=== PATIENT | female | born 1945 | race Caucasian/White ===

== ENCOUNTER 2017-03-10 23:40 | Inpatient (IN) | payer MEDICARE ==
[2017-03-11 00:08] LABS: Bilirubin Negative (Negative); Blood, Urine Small (Negative); Glucose, Urine (Dipstick) Negative (Negative); Ketone, Urine Negative (Negative); Nitrite Negative (Negative); Protein, Urine (Dipstick) Trace mg/dL (Neg-Trace); Urobilinogen 0.2 mg/dL (0.2-1.0)
[2017-03-11 00:11] LABS: Bacteria/HPF 3+ HPF (None Seen); Hyaline Casts/LPF 0-3 HYALINE CAST LPF (0-3 Hyaline); RBC/HPF 0-3 HPF (0-3); Squamous Epithelial 0-3 HPF (0-3)
[2017-03-11 00:23] LABS: Yeast-All Forms None Seen HPF (None Seen)
[2017-03-11 00:42] LABS: #Basophils 0.1 thou/uL (0.0-0.2); #Eosinphils 0.1 thou/uL (0.0-0.7); #Lymphocytes 2.6 thou/uL (1.20-3.40); #Monocytes 0.8 thou/uL (0.11-0.59); #Neutrophils 4.4 thou/uL (1.40-6.50); %Basophils 1.2 % (0.0-1.0); %Eosinophils 1.9 % (0.0-10.0); %Lymphocytes 32.5 % (21.0-51.0); %Monocytes 9.9 % (0.0-10.0); Hematocrit 40.4 % (36.0-47.0); Macrocytosis SLIGHT = 6-15 cells (100X) (0-5/hpf); Mean Platelet Volume 5.6 fL (7.4-10.4); Red Blood Cell (RBC) Count 3.83 mill/uL (4.20-5.40)
[2017-03-11 00:46] LABS: ALT (SGPT) 12 U/L (8-55); AST (SGOT) 29 U/L (5-34); Alkaline Phosphatase 167 U/L (40-150); Anion Gap 14 mmol/L (10-20); BUN (Urea Nitrogen) 11 mg/dL (9.8-20.1); Bilirubin, Total 1.3 mg/dL (0.2-1.2); Calc. Creatinine Clearance 0 mL/min (70-130); Calcium 9.5 mg/dL (7.8-10.44); Carbon Dioxide 31 mmol/L (23-31); Chloride 75 mmol/L (98-107); Estimated GFR-MDRD 44; Globulin 3.7 g/dL (2.4-3.5); Protein, Total 7.7 g/dL (6.0-8.3)
[2017-03-11 03:15] LABS: Salicylate Less than 8.0 mg/dL (15.0-30.0)
[2017-03-11 03:24] LABS: Osmolality, Serum 241 mOsm/kg (280-295)
[2017-03-11] MEDS ORDERED: Ketorolac Tromethamine 30 MG/ML VIAL ONE (04:05)
[2017-03-11] MEDS ORDERED: Multivitamins, Adult 10 ML, Thiamine HCl 100 MG, Folic Acid 1 MG in Dextrose 5 %-0.45 %... IV SCH ×4 (04:30)
[2017-03-11] MEDS ORDERED: Sodium Chloride 0.9% 1,000 ML IV SCH (06:28)
[2017-03-11] MEDS ORDERED: Ondansetron HCl/PF 4 MG/2 ML Vial IVP PRN ×2 (06:28→08:23)
[2017-03-11] MEDS ORDERED: Ondansetron ODT 4 MG TAB SL PRN (06:28)
[2017-03-11] MEDS ORDERED: Enalaprilat Dihydrate 1.25 MG/ML VIAL SLOW IVP PRN (08:21)
--- NOTE | 2017-03-11 08:23 | RAD ---
PORTABLE CHEST: Date: 03/11/17 PROVIDED CLINICAL HISTORY: Abdominal pain. FINDINGS: Comparison made with the study dated 07/24/16. Cardiac and mediastinal silhouette is unchanged in appearance. Emphysematous changes are redemonstrat ed. No focal consolidation, pleural fluid, or pneumothorax apparent. IMPRESSION: No evidence for an acute cardiopulmonary process. POS: OFF
[2017-03-11] MEDS ORDERED: Lorazepam 2 MG/ML VIAL SLOW IVP PRN (08:24)
--- NOTE | 2017-03-11 08:32 | CT ---
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 Pt states that pain was intermit tent at first but is now constant. States pain starts in upper abdomen and moves to lower abdomen. Al so reports dysuria since saturday. Pt was seen by pcp on saturday for physical and had cold then, has been taking otc medications for this but not on antibiotics. Pt states she is an alcoholic and usual ly drinks 4 beers and one wine/day. States that she gets shakes if she does not have alcohol. Reports drinking one beer today. Pt has h/o frequent utis, last uti was in july. Pt is former smoker, quit 8 years ago TECHNIQUE: Axial computed tomography images of the abdomen and pelvis with intravenous contrast. Coronal reformatted images were created and reviewed. COMPARISON: No relevant prior studies available. FINDINGS: Lower thorax: No acute findings. ABDOMEN: Liver: Liver surface nodularity suggest hepatic cirrhosis. Gallbladder and bile ducts: Unremarkable. No calcified stones. No ductal dilation. Pancreas: Unremarkable. No mass. No ductal dilation. Spleen: Unremarkable. No splenomegaly. Adrenals: Unremarkable. No mass. Kidneys and ureters: Chronic medical renal disease. No hydronephrosis. Stomach and bowel: The wall of the distal gastric antrum appears relatively thickened, without associ ated inflammation, potentially representing gastritis. No perceptible ulcer. No bowel wall thickening or intestinal obstruction. Appendix: Appendix not visualized. No evidence of appendicitis. PELVIS: Bladder: Mild diffuse inflammatory urinary bladder wall thickening, compatible with cystitis. Reproductive: Prior hysterectomy. ABDOMEN and PELVIS: Intraperitoneal space: Unremarkable. No free air. No significant fluid collection. Bones/joints: Internal fixation hardware of the proximal left femur. No acute fracture. No dislocatio n. Soft tissues: Unremarkable. Vasculature: Multiple peripherally calcified splenic artery aneurysms measuring up to 1.1 cm in size. Lymph nodes: Unremarkable. No enlarged lymph nodes. IMPRESSION: 1. Cystitis. 2. The wall of the distal gastric antrum appears relatively thickened, without associated inflammatio n, potentially representing gastritis. No perceptible ulcer. Thank you for allowing us to participate in the care of your patient. Dictated and Authenticated by: Jayme Hurst MD 03/11/2017 4:12 AM Central Time ([place] & [place]) FINAL REPORT CT ABDOMEN AND PELVIS WITH ORAL AND IV CONTRAST: Date: 03/11/17 FINDINGS/IMPRESSION: I agree with the preliminary report given by Dr. Jayme Hurst of [facility]. POS: [facility]
--- NOTE | 2017-03-11 08:49 | HP ---
CHIEF COMPLAINT: Abdominal pain with dysuria and bloating, hyponatremia and urinary tract infection. HISTORY OF PRESENT ILLNESS: The patient is a 72-year-old ongoing alcoholic who 2 days prior to admjairon fuller began to have pain with urination, frequency and urgency. This progressed to the point where merissa ellsworth finally came to the emergency room. She has had some nausea prior to this, but denies fever, vomit ing, diarrhea, pain and frequency that had increased to the point she was extremely uncomfortable. S he has continued to drink 4-6 beers plus wine every day. 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 PAST SURGICAL HISTORY: Includes appendectomy, hysterectomy, section x3, and left hip surger y. SOCIAL HISTORY: She is . She used to be an extensive smoker, but has quit less than 10 years ago. She continues to drink 4-6 beers per day and follows that with wine. ALLERGIES: No known drug allergies. CURRENT MEDICATIONS: On admission include gabapentin 300 mg t.i.d. with 2 at bedtime and occasionall y she will take Valium 2 mg. REVIEW OF SYSTEMS: GENERAL: She has not had any fever, malaise, diarrhea. She admits to nausea. HEENT: Normocephalic and atraumatic. Denies any headaches, blurred vision, pain in her throat, nose , ears. NECK: Normal range of motion, no sensation of mass or tenderness. CHEST: She denies cough or shortness of breath. HEART: Denies chest pain, palpitations or irregularity. ABDOMEN: Complains of tenderness suprapubically all the way up to her mid epigastric region. No gua rding. She feels bloated. GENITOURINARY: She has urinary frequency, urgency. Denies acute pain. Denies blood in urine or sto ol. EXTREMITIES: She denies any clubbing. She denies any painful range of motion or pain in joints at t his time, no swelling. SKIN: Shows no rashes or lesions. NEUROLOGIC: She denies any trouble with mentation or has trouble with headaches. She does admit to having had diminished sensation and occasionally burning sensation in her feet. PHYSICAL EXAMINATION: VITAL SIGNS: At the time of admission; blood pressure 183/107, respirations 16, pulse 87, temperatur e 97.8, O2 sat 95% on room air and she states her pain scale 07/10 in her abdomen. GENERAL: This is an elderly obese female, alert, oriented, cooperative at this time. HEENT: Normocephalic and atraumatic. Pupils are equal, round, and reactive to light with arcus destiney lis bilaterally. TMs, nares, pharynx are clear. NECK: Supple, trachea midline, no mass or tenderness. CHEST: Clear to auscultation. BREAST EXAM: Deferred. HEART: Regular rate and rhythm without murmur. ABDOMEN: Tender exclusively from suprapubic up to the mid epigastric area. Mild guarding noted. No rebound, no organomegaly appreciated, general tenderness noted. EXTREMITIES: Without clubbing, cyanosis, or edema. SKIN: Without rashes or lesions. NEUROLOGIC: Cranial nerves are intact. Unable to test gait and cerebellar function at this time. S ensory exam is intact. Mental status is at baseline. LABORATORY: Lab work on admission showed WBC 8, hemoglobin 13.6, hematocrit 40.4, platelets at 339. The sodium is 116, potassium 3.8, chloride 75, carbon dioxide is 31, BUN 11, creatinine 1.19, serum osmolality 241, total bilirubin 1.3. Liver functions normal. TSH 4.6. Urinalysis showed too cecilio us to count WBCs with large leukocyte esterase. Urine toxicology is negative at this time. ASSESSMENT: 1. Severe hyponatremia. 2. Urinary tract infection. 3. Alcoholism, ongoing. 4. Generalized anxiety disorder. PLAN: The plan will be supplementation of normal saline and control of blood pressure, prevention of DTs and antibiotics with serial reevaluation of pain.
[2017-03-11] MEDS ORDERED: NALOXONE PO SCH (09:00)
[2017-03-11] MEDS: Folic Acid 1 MG TAB PO SCH (09:36)
[2017-03-11] MEDS: Multivit, Therapeutic 1 TAB PO SCH (09:36)
[2017-03-11] MEDS: chlordiazePOXIDE HCl 25 MG CAP PO SCH ×4 (09:36→23:05)
[2017-03-11] MEDS: Phenazopyridine HCl 97.5 MG TABLET PO SCH ×3 (09:36→16:51)
[2017-03-11] MEDS: Sodium Chloride 0.9% 1,000 ML IV SCH (09:37)
[2017-03-11] MEDS: Gabapentin 300 MG CAP PO SCH ×4 (09:37→23:06)
[2017-03-11] MEDS: Thiamine HCl 200 MG/2 ML VIAL IM SCH (09:40)
[2017-03-11] MEDS: traMADol HCl 50 MG TAB PO PRN (12:50)
[2017-03-11] MEDS ORDERED: Iopamidol 370 76% 100 ML VIAL ONE (13:52)
[2017-03-11] MEDS ORDERED: cefTRIAXone\\ROCEPHIN 1 GM in Syringe 10 ML SLOW IVP SCH (16:00)
[2017-03-11] MEDS ORDERED: FLU VACC TS2017-18 (>65YR) 0.5 ML SYRINGE IM ONE (21:00)
[2017-03-12] MEDS: Sodium Chloride 0.9% 1,000 ML IV SCH ×2 (01:05→14:57)
[2017-03-12] MEDS: cefTRIAXone\\ROCEPHIN 1 GM, Syringe 0.4 ML in Sterile Water 9.6 ML SLOW IVP SCH (05:55)
[2017-03-12 06:20] LABS: #Eosinphils 0.5 thou/uL (0.0-0.7); #Lymphocytes 0.6 thou/uL (1.20-3.40); #Monocytes 0.4 thou/uL (0.11-0.59); #Neutrophils 5.7 thou/uL (1.40-6.50); %Basophils 0.5 % (0.0-1.0); %Eosinophils 6.4 % (0.0-10.0); %Lymphocytes 8.7 % (21.0-51.0); %Monocytes 4.9 % (0.0-10.0); Hematocrit 35.6 % (36.0-47.0); Mean Platelet Volume 5.4 fL (7.4-10.4); White Blood Cell (WBC) Count 7.2 thou/uL (4.8-10.8)
[2017-03-12 06:26] LABS: BUN (Urea Nitrogen) 11 mg/dL (9.8-20.1); Calc. Creatinine Clearance 72 mL/min (70-130); Calcium 8.6 mg/dL (7.8-10.44); Carbon Dioxide 31 mmol/L (23-31); Chloride 88 mmol/L (98-107); Estimated GFR-MDRD 65
[2017-03-12 07:20] LABS: Anion Gap 10 mmol/L (10-20)
[2017-03-12] MEDS: Folic Acid 1 MG TAB PO SCH (09:41)
[2017-03-12] MEDS: Phenazopyridine HCl 97.5 MG TABLET PO SCH ×3 (09:41→17:05)
[2017-03-12] MEDS: chlordiazePOXIDE HCl 25 MG CAP PO SCH ×4 (09:42→23:16)
[2017-03-12] MEDS: Gabapentin 300 MG CAP PO SCH ×4 (09:42→23:16)
[2017-03-12] MEDS: Multivit, Therapeutic 1 TAB PO SCH (09:43)
[2017-03-12] MEDS: Thiamine HCl 200 MG/2 ML VIAL IM SCH (09:47)
--- NOTE | 2017-03-12 12:17 | PRG ---
DATE OF SERVICE: 03/12/2017 ARGENTINA Gonzáles dictating a progress note for Orion Thompson M.D. SUBJECTIVE: The patient feels good. She is eating okay. She is drinking okay. She denies any comp laints. OBJECTIVE: GENERAL: Upon evaluation, she is awake, alert, and oriented to person, place, and time. VITAL SIGNS: Her blood pressure is 120/58, respiration 16, she is afebrile. NECK: Supple with no increased JVP or carotid bruit. Carotid had good upstroke with no thyromegaly. COR: Regular rate and rhythm. CHEST: Symmetrical. Clear to auscultation and percussion. ABDOMEN: Soft, nontender with normoactive bowel sounds. There is no bruit or organomegaly. EXTREMITIES: No edema or cyanosis. Palpable pedal pulses. SKIN: There is no evidence of ulcers, lesion, or rash. NEUROLOGIC: She is awake, alert, and oriented to person, place, and time. LABORATORY DATA: Showed a normal CBC. Her sodium is now 125. ASSESSMENT: 1. Hyponatremia. 2. Alcohol abuse. 3. Hypertension. 4. Peripheral neuropathy. 5. Urinary tract infection. 6. General anxiety disorder. PLAN: We will continue same treatment for now. We would like to get her sodium 130 at least before we look at sending home. Also, I do not have a urine C and S back yet as well. We will continue the same current medication regime. The patient verbalized understanding and all questions were answere d to her satisfaction.
[2017-03-12 13:35] VITALS: BMI 30.2
[2017-03-12] MEDS: traMADol HCl 50 MG TAB PO PRN (14:37)
[2017-03-13] MEDS: Sodium Chloride 0.9% 1,000 ML IV SCH (05:56)
[2017-03-13 05:57] LABS: #Eosinphils 0.5 thou/uL (0.0-0.7); #Lymphocytes 0.7 thou/uL (1.20-3.40); #Monocytes 0.6 thou/uL (0.11-0.59); #Neutrophils 7.2 thou/uL (1.40-6.50); %Basophils 0.4 % (0.0-1.0); %Lymphocytes 8.1 % (21.0-51.0); %Monocytes 6.1 % (0.0-10.0); Hematocrit 35.4 % (36.0-47.0); Mean Platelet Volume 5.9 fL (7.4-10.4); Red Blood Cell (RBC) Count 3.22 mill/uL (4.20-5.40); White Blood Cell (WBC) Count 9.1 thou/uL (4.8-10.8)
[2017-03-13] MEDS: cefTRIAXone\\ROCEPHIN 1 GM, Syringe 0.4 ML in Sterile Water 9.6 ML SLOW IVP SCH (05:58)
[2017-03-13 06:18] LABS: ALT (SGPT) 32 U/L (8-55); AST (SGOT) 97 U/L (5-34); Alkaline Phosphatase 217 U/L (40-150); Anion Gap 11 mmol/L (10-20); BUN (Urea Nitrogen) 7 mg/dL (9.8-20.1); Bilirubin, Total 0.4 mg/dL (0.2-1.2); Calc. Creatinine Clearance 84 mL/min (70-130); Carbon Dioxide 21 mmol/L (23-31); Chloride 98 mmol/L (98-107); Estimated GFR-MDRD 78; Globulin 2.9 g/dL (2.4-3.5); Protein, Total 5.8 g/dL (6.0-8.3)
[2017-03-13] MEDS: NS 0.9% w/ 20 MEQ KCL 1,000 ML IV SCH (08:18)
[2017-03-13] MEDS: Potassium Chloride 20 MEQ TAB PO SCH ×2 (08:19→17:06)
[2017-03-13] MEDS: Folic Acid 1 MG TAB PO SCH (08:22)
[2017-03-13] MEDS: Phenazopyridine HCl 97.5 MG TABLET PO SCH (08:22)
[2017-03-13] MEDS: chlordiazePOXIDE HCl 25 MG CAP PO SCH ×4 (08:22→22:07)
[2017-03-13] MEDS: Gabapentin 300 MG CAP PO SCH ×4 (08:23→22:07)
[2017-03-13] MEDS: Thiamine HCl 200 MG/2 ML VIAL IM SCH (08:24)
[2017-03-13] MEDS: Multivit, Therapeutic 1 TAB PO SCH (10:05)
[2017-03-13] MEDS: Cephalexin 250 MG CAP PO SCH ×5 (10:05→22:06)
[2017-03-14 06:24] LABS: #Eosinphils 0.4 thou/uL (0.0-0.7); #Lymphocytes 0.6 thou/uL (1.20-3.40); #Monocytes 0.6 thou/uL (0.11-0.59); #Neutrophils 4.2 thou/uL (1.40-6.50); %Basophils 0.3 % (0.0-1.0); %Eosinophils 7.3 % (0.0-10.0); %Lymphocytes 10.2 % (21.0-51.0); Hematocrit 36.2 % (36.0-47.0); Mean Platelet Volume 5.7 fL (7.4-10.4); White Blood Cell (WBC) Count 5.8 thou/uL (4.8-10.8)
[2017-03-14 06:49] LABS: Anion Gap 10 mmol/L (10-20); BUN (Urea Nitrogen) 5 mg/dL (9.8-20.1); Calc. Creatinine Clearance 107 mL/min (70-130); Calcium 8.2 mg/dL (7.8-10.44); Carbon Dioxide 21 mmol/L (23-31); Chloride 103 mmol/L (98-107); Estimated GFR-MDRD Greater than 90
[2017-03-14] MEDS: Multivit, Therapeutic 1 TAB PO SCH (08:15)
[2017-03-14] MEDS: Gabapentin 300 MG CAP PO SCH (08:15)
[2017-03-14] MEDS: Potassium Chloride 20 MEQ TAB PO SCH (08:15)
[2017-03-14] MEDS: Folic Acid 1 MG TAB PO SCH (08:16)
[2017-03-14] MEDS: chlordiazePOXIDE HCl 25 MG CAP PO SCH (08:17)
[2017-03-14] MEDS: NS 0.9% w/ 20 MEQ KCL 1,000 ML IV SCH (08:18)
[2017-03-14] MEDS: Cephalexin 250 MG CAP PO SCH (08:39)
[2017-03-14 08:41] VITALS: BP 153/74; TEMP 98.4
--- NOTE | 2017-03-14 13:59 | DIS ---
FINAL DIAGNOSES: 1. Urinary tract infection. 2. Alcohol abuse. 3. Hyponatremia. 4. Hypokalemia. COMPLICATIONS: None. PROCEDURES: None. CONSULTANTS: None. HOSPITAL COURSE: This is a pleasant female, who presents with abdominal pain and found to have a UTI . She was also found to have hyponatremia, hypokalemia, and she was started on IV fluids. Her potas sium was replenished. She was put on DT prophylaxis as she is a big drinker and has been so for many years. Urine culture preliminary came back negative; however, she was doing very well. She wanted to go home despite not having the final culture back. Her vital signs were stable. Her lab went fro m 116 of sodium to 130. Her BUN and creatinine were normal. Her H&H was 11.8 and 36.2. Her hospita l course was unremarkable and she was discharged home on 03/14/2017 in stable condition. DIET: Regular diet. ACTIVITIES: As tolerated by the patient. DISCHARGE MEDICATIONS: 1. Diazepam 2 mg b.i.d. p.r.n. 2. Gabapentin 300 mg t.i.d. with 600 at night. 3. Cephalexin 500 mg q.i.d. 4. Stop Librium as she did not want that, she also did not want folic acid. 5. She would continue the metoprolol 50 mg every day, along with a multivitamin every day. FOLLOWUP: She will follow up in 1 week with Mariajose. She was also advised to discontinue drinking. We had the conversation numerous times that she is a patient of mine in the office. She does good for several months and then unfortunately, she will always go back to her old ways. The patient will see me in 1 week or prior to that if she has any complications. This is Mariajose VILLARREAL-C dictating for Orion Thompson M.D.
== END 2017-03-14 12:22 | disposition home or self-care (01) | DRG 690 ==
LOC: ERS 23:40 → T4-B 03-11 05:00
PROVIDERS: ADMIT Specialist; ATTEND Specialist
DX: N39.0 Urinary tract infection, site not specified (principal); G62.9 Polyneuropathy, unspecified; E87.1 Hypo-osmolality and hyponatremia; K74.60 Unspecified cirrhosis of liver; J44.9 Chronic obstructive pulmonary disease, unspecified; I10 Essential (primary) hypertension; E87.6 Hypokalemia; F41.1 Generalized anxiety disorder; Z91.14 Patient's other noncompliance with medication regimen; F10.20 Alcohol dependence, uncomplicated; K21.9 Gastro-esophageal reflux disease without esophagitis; F32.9 Major depressive disorder, single episode, unspecified; Z87.891 Personal history of nicotine dependence
CPT/HCPCS: 36415; 36416; 71010; 74177; 80048; 80053; 80307; 81003; 81015; 82436; 82570; 83930; 83935; 84133; 84300; 84443; 84550; 84560; 85025; 87086; 93005; 96361; 96365; 96375; A4216; J0696; J1885; J3411; J7042

== ENCOUNTER 2017-03-17 19:57 | Emergency (ER) | payer MEDICARE ==
[2017-03-17 21:08] LABS: #Basophils 0.1 thou/uL (0.0-0.2); #Eosinphils 0.4 thou/uL (0.0-0.7); #Lymphocytes 2.6 thou/uL (1.20-3.40); #Monocytes 0.8 thou/uL (0.11-0.59); #Neutrophils 2.4 thou/uL (1.40-6.50); %Basophils 1.7 % (0.0-1.0); %Eosinophils 5.7 % (0.0-10.0); %Lymphocytes 41.3 % (21.0-51.0); %Monocytes 12.4 % (0.0-10.0); Mean Platelet Volume 5.4 fL (7.4-10.4); Red Blood Cell (RBC) Count 3.64 mill/uL (4.20-5.40); White Blood Cell (WBC) Count 6.2 thou/uL (4.8-10.8)
[2017-03-17 21:27] LABS: ALT (SGPT) 20 U/L (8-55); AST (SGOT) 23 U/L (5-34); Alkaline Phosphatase 170 U/L (40-150); Anion Gap 14 mmol/L (10-20); BUN (Urea Nitrogen) 5 mg/dL (9.8-20.1); Bilirubin, Total 0.5 mg/dL (0.2-1.2); Calc. Creatinine Clearance 0 mL/min (70-130); Calcium 9.2 mg/dL (7.8-10.44); Carbon Dioxide 25 mmol/L (23-31); Chloride 102 mmol/L (98-107); Estimated GFR-MDRD 86; Globulin 3.5 g/dL (2.4-3.5); Lipase 20 U/L (8-78); Protein, Total 7.1 g/dL (6.0-8.3)
[2017-03-17 21:31] LABS: Troponin I Less than 0.010 ng/mL (< 0.028)
[2017-03-17] MEDS ORDERED: Morphine 4 MG/ML VIAL ONE (22:02)
[2017-03-17] MEDS ORDERED: Ondansetron HCl/PF 4 MG/2 ML Vial ONE (22:02)
[2017-03-17 22:11] LABS: Bilirubin Negative (Negative); Blood, Urine Moderate (Negative); Glucose, Urine (Dipstick) Negative (Negative); Ketone, Urine Negative (Negative); Nitrite Negative (Negative); Protein, Urine (Dipstick) Negative (Neg-Trace); Urobilinogen 0.2 mg/dL (0.2-1.0)
[2017-03-17 22:16] LABS: Bacteria/HPF None Seen HPF (None Seen); Hyaline Casts/LPF 4-6 HYALINE CAST LPF (0-3 Hyaline); RBC/HPF 21-50 HPF (0-3); Squamous Epithelial 0-3 HPF (0-3)
--- NOTE | 2017-03-17 22:53 | CT ---
CT OF THE ABDOMEN AND PELVIS: Date: 03/17/17 COMPARISON: 03/11/17. HISTORY: Flank pain on the left, urinary retention, recent diagnosis of pyelonephritis. TECHNIQUE: Serial axial CT imaging is obtained at 5 mm intervals from lung bases through pubic symphysis without contrast. Coronal reformatted imaging obtained. FINDINGS: Lack of contrast media limits assessment of the viscera, bowel, vascular structures, and for lymphade nopathy. Minimal new focal area of ground-glass opacity noted in the left lower lobe on image 7, whic h could be inflammatory or infectious in nature. There is linear scar within the right lower lobe med ially. There is no free intraperitoneal air or fluid. There is a Rojas catheter within the urinary bladder. Postoperative screws are present within the left femoral neck. A punctate hyperdensity in the gallbla dder suggests a small stone. The peripheral contour of the liver is mildly irregular, a stable findin g. Splenic artery aneurysms are noted, measuring up to 1.3 cm in transverse dimension, demonstrating rim calcification, stable. The adrenal glands and pancreas are grossly unremarkable. There is no evidence for hydronephrosis or nephrolithiasis on either side. There is no evidence for o bstructive uropathy on either side. No evidence for bowel obstruction. Osseous structures demonstrate stable mild superior end plate fracture of T11 and diffuse osteopenia. IMPRESSION: No evidence for obstructive uropathy or nephrolithiasis. POS: [facility]
--- NOTE | 2017-04-06 11:38 | EKG ---
Test Reason : Blood Pressure : / mmHG Vent. Rate : 093 BPM Atrial Rate : 093 BPM P-R Int : 156 ms QRS Dur : 068 ms QT Int : 360 ms P-R-T Axes : 025 068 032 degrees QTc Int : 447 ms Normal sinus rhythm Low voltage QRS Nonspecific ST and T wave abnormality No STEMI Abnormal ECG Confirmed by MISTY Uribe, SHEILA ([id number]), avid editor PADMINI CORDON ([id number]) on 04/06/2017 11:38:28 AM Referred By: Confirmed By:SHEILA JAY M.D.
== END 2017-03-18 01:10 | disposition home or self-care (01) ==
LOC: ERS 19:57
DX: J18.9 Pneumonia, unspecified organism (principal); R33.9 Retention of urine, unspecified; K74.60 Unspecified cirrhosis of liver; J44.9 Chronic obstructive pulmonary disease, unspecified; F41.9 Anxiety disorder, unspecified; F32.9 Major depressive disorder, single episode, unspecified; Y95 Nosocomial condition; Z79.899 Other long term (current) drug therapy
CPT/HCPCS: 36415; 74176; 80053; 81003; 81015; 82553; 83690; 84484; 85025; 87086; 93005; 96374; 96375; J2270; J2405

== ENCOUNTER 2017-07-15 07:36 | Inpatient (IN) | payer MEDICARE ==
[2017-07-15 08:09] LABS: #Basophils 0.1 thou/uL (0.0-0.2); #Eosinphils 0.1 thou/uL (0.0-0.7); #Lymphocytes 3.3 thou/uL (1.20-3.40); #Monocytes 1.2 thou/uL (0.11-0.59); #Neutrophils 5.5 thou/uL (1.40-6.50); %Basophils 0.9 % (0.0-1.0); %Eosinophils 1.2 % (0.0-10.0); %Lymphocytes 32.4 % (21.0-51.0); %Monocytes 11.6 % (0.0-10.0); %Neutrophils 53.9 % (42.0-75.0); Hemoglobin 15.7 g/dL (12.0-16.0); Mean Corpuscular HGB CONC 34.4 g/dL (32.0-36.0); Mean Corpuscular Hemoglobin 33.9 pg (27.0-31.0); Mean Corpuscular Volume 98.5 fl (81.0-99.0); Mean Platelet Volume 5.4 fL (7.4-10.4); Platelet Count 405 thou/uL (130-400); RBC Distribution Width 12.7 % (11.5-14.5); Red Blood Cell (RBC) Count 4.64 mill/uL (4.20-5.40); White Blood Cell (WBC) Count 10.2 thou/uL (4.8-10.8)
[2017-07-15 08:23] LABS: ALT (SGPT) 16 U/L (8-55); AST (SGOT) 46 U/L (5-34); Albumin 4.3 g/dL (3.4-4.8); Alkaline Phosphatase 176 U/L (40-150); Anion Gap 19 mmol/L (10-20); BUN (Urea Nitrogen) 6 mg/dL (9.8-20.1); Bilirubin, Total 0.9 mg/dL (0.2-1.2); Calc. Creatinine Clearance 0 mL/min (70-130); Calcium 10.5 mg/dL (7.8-10.44); Carbon Dioxide 27 mmol/L (23-31); Chloride 87 mmol/L (98-107); Estimated GFR-MDRD 54; Globulin 4.2 g/dL (2.4-3.5); Glucose 112 mg/dL (80-115); Lipase 15 U/L (8-78); Potassium 3.5 mmol/L (3.5-5.1); Protein, Total 8.5 g/dL (6.0-8.3); Sodium 129 mmol/L (136-145)
[2017-07-15] MEDS ORDERED: Sucralfate 1 GM/10 ML UDCUP ONE (09:06)
[2017-07-15] MEDS ORDERED: Ondansetron HCl/PF 4 MG/2 ML Vial ONE (09:06)
[2017-07-15] MEDS ORDERED: Lorazepam 2 MG/ML VIAL ONE (09:06)
[2017-07-15 09:19] LABS: Prothrombin Time 13.7 SEC (12.0-14.7)
[2017-07-15 09:26] LABS: CKMB 0.7 ng/mL (0-6.6); Troponin I Less than 0.010 ng/mL (< 0.028)
[2017-07-15 09:35] LABS: Bilirubin Small (Negative); Blood, Urine Moderate (Negative); Glucose, Urine (Dipstick) Negative (Negative); Leukocyte Moderate (Negative); Nitrite Negative (Negative); Protein, Urine (Dipstick) 100 mg/dL (Neg-Trace); Urobilinogen 0.2 mg/dL (0.2-1.0); pH, Urine 5.5 (5.0-9.0)
[2017-07-15 09:37] LABS: Clarity Turbid (Clear)
[2017-07-15 09:48] LABS: Bacteria/HPF 4+ HPF (None Seen); Squamous Epithelial 0-3 HPF (0-3)
[2017-07-15 09:49] LABS: Hyaline Casts/LPF NONE SEEN LPF (0-3 Hyaline)
[2017-07-15] MEDS ORDERED: cefTRIAXone\\ROCEPHIN 2 GM VIAL ONE (10:07)
[2017-07-15] MEDS ORDERED: Magnesium Sulfate 2 GM/100 ML BAG ONE (10:07)
--- NOTE | 2017-07-15 10:36 | ULT ---
ULTRASOUND ABDOMEN LIMITED: (RIGHT UPPER QUADRANT) DATE: 07/15/17. HISTORY: A 72-year-old female with right upper quadrant abdominal pain. FINDINGS: Gallbladder: At least 2 small mobile gallstones adjacent to each other at the fundus, each one on the order of 5 mm. No mural thickening, pericholecystic edema, or sonographic Damian's sign. Common duct: 3 mm. Liver: Diffusely coarse and heterogeneous echotexture consistent with cirrhosis. The particular appe arance on this patient makes it difficult to exclude innumerable small hepatic metastases. Hepatic m argins are nodular, consistent with cirrhosis. Left lobe is enlarged, and right lobe is small, also consistent with cirrhosis. Pancreas: Nonspecific sonographic appearance. Right kidney: No hydronephrosis. IMPRESSION: 1. Hepatic cirrhosis. 2. Cholelithiasis without evidence of acute cholecystitis or obstructive uropathy. GONZALO Brown POS: [facility]
[2017-07-15] MEDS ORDERED: FOLIC ACID IVP SCH (11:15)
[2017-07-15] MEDS ORDERED: PRE FILLED SLOW IVP SCH (11:15)
[2017-07-15] MEDS ORDERED: THIAMINE HCL SLOW IVP SCH (11:15)
[2017-07-15] MEDS ORDERED: PRE FILLED IVP SCH (11:15)
[2017-07-15] MEDS ORDERED: Thiamine HCl 200 MG/2 ML VIAL SLOW IVP ONE (11:15)
[2017-07-15] MEDS ORDERED: Sodium Chloride 0.9% 0 ML ONE (11:31)
[2017-07-15 12:33] VITALS: BMI 31.2
[2017-07-15] MEDS ORDERED: Ondansetron HCl/PF 4 MG/2 ML Vial IVP PRN (12:46)
[2017-07-15] MEDS ORDERED: Acetaminophen 325 MG TAB PO PRN (12:47)
[2017-07-15] MEDS ORDERED: Multivit, Therapeutic 1 TAB PO SCH (13:00)
[2017-07-15 13:14] LABS: Lactic Acid 1.4 mmol/L (0.5-2.2)
[2017-07-15 13:20] LABS: Troponin I 0.014 ng/mL (< 0.028)
[2017-07-15] MEDS: Diazepam 5 MG TAB PO SCH ×3 (13:36→20:39)
[2017-07-15] MEDS: Ondansetron ODT 4 MG TAB PO PRN ×2 (13:36→20:39)
[2017-07-15 15:51] LABS: Troponin I Less than 0.010 ng/mL (< 0.028)
[2017-07-15] MEDS ORDERED: Ondansetron ODT 8 MG TAB PO PRN (18:23)
[2017-07-15] MEDS ORDERED: Lorazepam 2 MG/ML VIAL SLOW IVP PRN (18:24)
[2017-07-15] MEDS ORDERED: Phenazopyridine HCl 97.5 MG TABLET PO SCH (18:30)
[2017-07-15] MEDS: Gabapentin 400 MG CAP PO SCH (20:38)
[2017-07-15] MEDS ORDERED: cefTRIAXone\\ROCEPHIN 2 GM in Sodium Chloride 0.9% 100 ML IVPB SCH (22:00)
--- NOTE | 2017-07-16 00:40 | HP ---
DATE OF ADMISSION: 07/15/2017 CHIEF COMPLAINT ON ADMISSION: Abdominal pain. HISTORY OF PRESENT ILLNESS: The patient is a 72-year-old female who states that she has be en having significant abdominal pain for 3 days. On the morning of admission, she began to have kia re dysuria and urinary frequency. Her abdominal pain has been coming in waves across her abdomen. S he has had a lot of nausea, a lot of diarrhea, and did vomit some on the days prior to admission. Sh e denies fever. She has had three C-sections in the past. She has had an appendectomy in the past. While she is not a smoker, she admits to heavy alcohol use and drinks daily. The onset of symptoms was gradual, but continued to worsen to the point where she could not stand the pain any further and came to the emergency room for further evaluation. PAST MEDICAL HISTORY: As mentioned above, she has a history of alcoholism with cirrhosis. Also COPD , fibromyalgia, generalized anxiety disorder. She has GERD, arthritis in her hips, depression, perip heral neuropathy, hypertension, noncompliance with all her medication and frequent urinary tract infe ctions. Her last hospitalization was 03/11/2017 for these very same complaints as today. PAST SURGICAL HISTORY: Includes appendectomy, hysterectomy, section x3, and left hip surger y. SOCIAL HISTORY: She is . She has been an extensive smoker and has quit less than 10 years ag o. She drinks 4-6 beers and several mixed drinks on a daily basis and follows that with wine. ALLERGIES: No known drug allergies. CURRENT MEDICATIONS ON ADMISSION: Gabapentin 300 mg t.i.d. with 2 at bedtime. She will occasionally take Valium 2 mg for anxiety. REVIEW OF SYSTEMS: General: As previously mentioned, she denies fever, malaise, but she has had ayo rrhea and nausea. HEENT: She has had headaches. Denies blurred vision, pain in her eyes, throat or ears or nose. No discharge from these as well. Neck: Nontender. Denies masses or swelling. Ches t: Denies cough or shortness of breath. Heart: Denies chest pain or palpitations. Back: Denies t enderness. Range of motion is normal. Abdomen: Admits to suprapubic tenderness and periumbilical t enderness that comes across in waves. She feels bloated all the time, has had nausea and diarrhea an d vomiting on the day prior to admission. Genitourinary: Admits to urinary frequency that she state s began at 2 in the morning on the day of admission. Denies blood in urine or stool. Extremities: Denies pain in her arms or legs. Denies swelling in her joints or erythema. Skin: Denies any new r ashes or lesions. Neurological: Denies any trouble with mentation, although she has had some headac hes. PHYSICAL EXAMINATION: At the time of admission, VITAL SIGNS: Blood pressure is 140/84, pulse 108, temperature 97.9 with an O2 sat of 94% on room air , she is breathing 16 times a minute, she weighs 171 pounds, and believe she is 4 feet 11 inches. GENERAL: Elderly female, alert and responsive to questions, in no acute distress. HEENT: Normocephalic, atraumatic. Pupils equal, round, and reactive to light with arcus senilis luis a aterally. TMs, nares, pharynx are clear. Pharynx on admission was dry. It is now moist. NECK: Supple with normal range of motion. No mass. CHEST: Shows generally diminished breath sounds throughout. HEART: Regular rate and rhythm, no murmur. BREAST EXAM: Deferred. ABDOMEN: Soft with mild hepatomegaly, tenderness across the midabdomen and periumbilical and suprapu bic area, but no guarding or rebound. Abdomen is soft. GENITOURINARY: Deferred. EXTREMITIES: Without clubbing, cyanosis, or edema. Normal range of motion present. SKIN: With poor turgor. No acute rashes or lesions. NEUROLOGIC: Cranial nerves are intact. Gait and cerebellar function are untested. Sensory exam is grossly intact. Deep tendon reflexes at the knee are 2+. Mental status is significant for anxiety. SKIN: No new rashes or lesions with poor turgor. LABORATORY ON ADMISSION: WBCs 10.2, hemoglobin 15.7, hematocrit 45.7 with platelets at 405. PT 13.7 , INR 1.0. Sodium is low at 129, potassium 3.5, chloride 87, CO2 of 27, BUN is 6, creatinine 1.02 wi th a GFR of 54, glucose 112 on admission. Lactate elevated at 2.4 on admission, calcium elevated at 10.5 on admission, magnesium low at 1.4 on admission. AST elevated at 46, ALT 16, alkaline phosphata se elevated at 176. Troponin Is and CK-MBs are negative. Liver functions, serum protein is high at 8.5. Lipase 15. Urinalysis shows moderate blood, trace ketones, moderate leukocyte esterase with to o numerous to count wbc's. Abdominal ultrasound on admission shows hepatic cirrhosis, cholelithiasis without evidence of cholecystitis. ASSESSMENT ON ADMISSION: 1. Dehydration. 2. Urinary tract infection. 3. Hyponatremia. 4. Hypomagnesemia. 5. Chronic obstructive pulmonary disease. 6. Acute alcoholism with possible early signs of withdrawal, so she has not drank in 3 days. PLAN: Will be to prevent delirium tremens, rehydrate this patient, antiemetics, antibiotics. Await urinary cultures and serial reevaluation. We will also use antispasmodics for the bladder to ease ab dominal pain. She will be serially reevaluated.
[2017-07-16 06:19] LABS: #Eosinphils 0.4 thou/uL (0.0-0.7); #Lymphocytes 0.6 thou/uL (1.20-3.40); #Monocytes 0.4 thou/uL (0.11-0.59); #Neutrophils 11.6 thou/uL (1.40-6.50); %Basophils 0.3 % (0.0-1.0); %Eosinophils 3.1 % (0.0-10.0); %Lymphocytes 4.3 % (21.0-51.0); %Monocytes 2.7 % (0.0-10.0); %Neutrophils 89.6 % (42.0-75.0); Hemoglobin 13.2 g/dL (12.0-16.0); Mean Corpuscular HGB CONC 33.4 g/dL (32.0-36.0); Mean Corpuscular Hemoglobin 33.5 pg (27.0-31.0); Mean Platelet Volume 5.6 fL (7.4-10.4); Platelet Count 266 thou/uL (130-400); RBC Distribution Width 12.6 % (11.5-14.5); Red Blood Cell (RBC) Count 3.92 mill/uL (4.20-5.40); White Blood Cell (WBC) Count 12.9 thou/uL (4.8-10.8)
[2017-07-16 06:28] LABS: Anion Gap 9 mmol/L (10-20); BUN (Urea Nitrogen) 7 mg/dL (9.8-20.1); Calc. Creatinine Clearance 83 mL/min (70-130); Calcium 8.6 mg/dL (7.8-10.44); Carbon Dioxide 30 mmol/L (23-31); Chloride 96 mmol/L (98-107); Estimated GFR-MDRD 74; Glucose 104 mg/dL (80-115); Magnesium 1.8 mg/dL (1.6-2.6); Potassium 3.1 mmol/L (3.5-5.1); Sodium 132 mmol/L (136-145)
--- NOTE | 2017-07-16 08:50 | PRG ---
DATE OF SERVICE: 07/16/2017 SUBJECTIVE: The patient had a good night. She is eating and drinking okay. She has no abdominal pa in. She has no nausea. PHYSICAL EXAMINATION: GENERAL: She is awake, alert, and oriented to person, place and time. VITAL SIGNS: Blood pressure 130/80, pulse 100, respiration 20, she is afebrile. NECK: Supple, no increased JVP or carotid bruit. Carotid had good upstroke with no thyromegaly. COR: Regular rate and rhythm. CHEST: Symmetrical. Clear to auscultation and percussion. ABDOMEN: Soft, nontender with normoactive bowel sounds. There is no bruit or organomegaly. EXTREMITIES: No edema or cyanosis. She had palpable pedal pulses. SKIN: There is no evidence of ulcer, lesion or rash. NEUROLOGIC: She is awake, alert, and oriented to person, place, and time. LABORATORY DATA: Her white blood cell 12.9, H&H is normal. Her sodium is 132. Her potassium is 3.1 . ASSESSMENT: 1. Urinary tract infection. 2. Hyponatremia. 3. Hypokalemia. 4. History of alcohol abuse. 5. Anxiety disorder. PLAN: The patient will be continued on the same medication regimen. We will wait for her urine cult ure. We will also replenish her potassium and check a potassium in the morning.
[2017-07-16] MEDS ORDERED: cefTRIAXone\\ROCEPHIN 2 GM in Sodium Chloride 0.9% 100 ML IVPB SCH ×2 (09:00→15:00)
[2017-07-16] MEDS: Diazepam 5 MG TAB PO SCH ×4 (09:27→21:26)
[2017-07-16] MEDS: Gabapentin 400 MG CAP PO SCH ×3 (09:27→21:26)
[2017-07-16] MEDS: Folic Acid 1 MG TAB PO SCH (09:27)
[2017-07-16] MEDS: Multivit, Therapeutic 1 TAB PO SCH (09:27)
[2017-07-16] MEDS: Potassium Chloride 20 MEQ TAB PO SCH ×2 (10:43→21:26)
[2017-07-16] MEDS: Phenazopyridine HCl 97.5 MG TABLET PO SCH ×4 (10:43→21:30)
[2017-07-16] MEDS: Thiamine HCl 200 MG/2 ML VIAL IM SCH (10:44)
[2017-07-16] MEDS ORDERED: Loperamide HCl 2 MG CAP PO PRN (13:27)
[2017-07-16] MEDS: Loperamide HCl 2 MG CAP PO PRN (16:23)
[2017-07-17 05:41] LABS: #Eosinphils 0.9 thou/uL (0.0-0.7); #Lymphocytes 0.8 thou/uL (1.20-3.40); #Monocytes 0.4 thou/uL (0.11-0.59); #Neutrophils 7.1 thou/uL (1.40-6.50); %Basophils 0.3 % (0.0-1.0); %Lymphocytes 8.9 % (21.0-51.0); %Monocytes 4.5 % (0.0-10.0); %Neutrophils 76.3 % (42.0-75.0); Hemoglobin 13.3 g/dL (12.0-16.0); Mean Corpuscular HGB CONC 33.7 g/dL (32.0-36.0); Mean Corpuscular Hemoglobin 34.3 pg (27.0-31.0); Mean Platelet Volume 5.8 fL (7.4-10.4); Platelet Count 263 thou/uL (130-400); RBC Distribution Width 12.7 % (11.5-14.5); Red Blood Cell (RBC) Count 3.88 mill/uL (4.20-5.40); White Blood Cell (WBC) Count 9.3 thou/uL (4.8-10.8)
[2017-07-17 06:16] LABS: ALT (SGPT) 10 U/L (8-55); AST (SGOT) 22 U/L (5-34); Albumin 3.1 g/dL (3.4-4.8); Alkaline Phosphatase 120 U/L (40-150); Anion Gap 9 mmol/L (10-20); BUN (Urea Nitrogen) 9 mg/dL (9.8-20.1); Bilirubin, Total 0.4 mg/dL (0.2-1.2); Calc. Creatinine Clearance 87 mL/min (70-130); Calcium 8.7 mg/dL (7.8-10.44); Carbon Dioxide 28 mmol/L (23-31); Chloride 98 mmol/L (98-107); Estimated GFR-MDRD 78; Globulin 2.8 g/dL (2.4-3.5); Glucose 104 mg/dL (80-115); Potassium 3.6 mmol/L (3.5-5.1); Protein, Total 5.9 g/dL (6.0-8.3); Sodium 131 mmol/L (136-145)
[2017-07-17] MEDS: Diazepam 5 MG TAB PO SCH ×4 (08:41→20:31)
[2017-07-17] MEDS: Folic Acid 1 MG TAB PO SCH (08:41)
[2017-07-17] MEDS: Multivit, Therapeutic 1 TAB PO SCH (08:42)
[2017-07-17] MEDS: Gabapentin 400 MG CAP PO SCH ×3 (08:42→20:31)
[2017-07-17] MEDS: Phenazopyridine HCl 97.5 MG TABLET PO SCH ×4 (08:43→20:31)
[2017-07-17] MEDS: Potassium Chloride 20 MEQ TAB PO SCH ×2 (08:43→20:31)
[2017-07-17] MEDS: Sulfameth/Trimethoprim DS 800-160mg TAB PO SCH ×2 (08:44→20:31)
[2017-07-17] MEDS: Loperamide HCl 2 MG CAP PO PRN (12:47)
[2017-07-17] MEDS: Thiamine HCl 200 MG/2 ML VIAL IM SCH (13:00)
[2017-07-17] MEDS ORDERED: THIAMINE HCL IM SCH (14:00)
[2017-07-17] MEDS ORDERED: ADMIXTURE FEE IM SCH (14:00)
[2017-07-18 07:53] LABS: #Eosinphils 0.8 thou/uL (0.0-0.7); #Monocytes 0.4 thou/uL (0.11-0.59); #Neutrophils 4.2 thou/uL (1.40-6.50); %Basophils 0.3 % (0.0-1.0); %Eosinophils 12.4 % (0.0-10.0); %Lymphocytes 15.4 % (21.0-51.0); Hemoglobin 13.3 g/dL (12.0-16.0); Mean Corpuscular HGB CONC 33.6 g/dL (32.0-36.0); Mean Corpuscular Hemoglobin 34.6 pg (27.0-31.0); Mean Platelet Volume 5.9 fL (7.4-10.4); Platelet Count 255 thou/uL (130-400); RBC Distribution Width 12.8 % (11.5-14.5); Red Blood Cell (RBC) Count 3.83 mill/uL (4.20-5.40); White Blood Cell (WBC) Count 6.3 thou/uL (4.8-10.8)
[2017-07-18 07:54] LABS: Anion Gap 9 mmol/L (10-20); BUN (Urea Nitrogen) 9 mg/dL (9.8-20.1); Calc. Creatinine Clearance 88 mL/min (70-130); Carbon Dioxide 28 mmol/L (23-31); Chloride 99 mmol/L (98-107); Estimated GFR-MDRD 79; Glucose 89 mg/dL (80-115); Potassium 4.4 mmol/L (3.5-5.1); Sodium 132 mmol/L (136-145)
[2017-07-18 08:01] VITALS: BP 148/79; TEMP 98.4
--- NOTE | 2017-07-18 12:50 | DIS ---
DATE OF ADMISSION: 07/15/2017 DATE OF DISCHARGE: 07/18/2017 FINAL DIAGNOSES: 1. Urinary tract infection. 2. Hyponatremia. 3. Hypokalemia. 4. History of alcohol abuse. COMPLICATIONS: None. PROCEDURES: None. CONSULTANTS: None. HOSPITAL COURSE: This is a pleasant female who presents to the hospital and found to have hyponatrem ia and UTI and also a low potassium, this was treated accordingly. Her white blood cell count was 12 .9. On the second day, her H and H was normal. On the day of dismissal, her white blood cell count was 6.3. Her H and H was normal. Her sodium was 132. Her vital signs were stable. She did have ur ine culture and was found to have E. coli. The patient was continued on IV antibiotics, were eventua lly switched to p.o. antibiotics, which was Bactrim as it was sensitive to her organism. The patient had to be placed on alcohol withdrawal per medications as she does have a history of alcohol abuse. The patient likely did not have any DTs while in the hospital. The patient's hospital course was un remarkable. She felt good. She was ambulatory. She was eating okay. She had no problems. She was discharged home on 07/18/2017 in stable condition. DISCHARGE MEDICATIONS: 1. Diazepam 2 mg b.i.d. 2. Neurontin 600 mg daily. 3. Naproxen p.r.n. 4. Folic acid 1 mg every day. 5. Multivitamin every day. 6. Bactrim-DS b.i.d. for 10 days. FOLLOWUP: She will otherwise follow up with Mariajose in 1 week or prior to that if she has any compl ications. The time spent with this patient after reviewing the chart, dictating and seen the patient was 30 min utes.
== END 2017-07-18 09:17 | disposition home or self-care (01) | DRG 690 ==
LOC: ERS 07:36 → 2SE 10:22
PROVIDERS: ADMIT Specialist; ATTEND Specialist
DX: N39.0 Urinary tract infection, site not specified (principal); E83.42 Hypomagnesemia; J44.9 Chronic obstructive pulmonary disease, unspecified; G62.9 Polyneuropathy, unspecified; E87.1 Hypo-osmolality and hyponatremia; E87.6 Hypokalemia; E86.0 Dehydration; B96.20 Unspecified Escherichia coli [E. coli] as the cause of diseases classified elsewhere; K70.30 Alcoholic cirrhosis of liver without ascites; F10.20 Alcohol dependence, uncomplicated; F41.1 Generalized anxiety disorder; I10 Essential (primary) hypertension; M79.7 Fibromyalgia; K21.9 Gastro-esophageal reflux disease without esophagitis; F32.9 Major depressive disorder, single episode, unspecified; Z91.14 Patient's other noncompliance with medication regimen; Z87.891 Personal history of nicotine dependence
CPT/HCPCS: 36415; 51701; 76705; 80048; 80053; 81003; 81015; 82553; 83605; 83690; 83735; 84484; 85025; 85610; 87077; 87086; 87186; 87324; 87449; 93005; 96360; 96361; 96365; 96367; 96375; A4216; A4353; J0696; J2060; J2405; J3411; J3475; J7050; Q0162

== ENCOUNTER 2017-10-14 16:33 | Inpatient (IN) | payer MEDICARE ==
[~2017-10-14 16:33] MED LIST: Iopamidol 370 76% 100 ML VIAL ONE
[2017-10-14] MEDS ORDERED: Morphine 4 MG/ML Carpuject ONE (16:53)
[2017-10-14] MEDS ORDERED: Ondansetron HCl/PF 4 MG/2 ML Vial ONE (16:54)
[2017-10-14 17:23] LABS: #Basophils 0.1 thou/uL (0.0-0.2); #Eosinphils 0.4 thou/uL (0.0-0.7); #Lymphocytes 1.9 thou/uL (1.20-3.40); #Monocytes 1.1 thou/uL (0.11-0.59); #Neutrophils 8.6 thou/uL (1.40-6.50); %Basophils 0.6 % (0.0-1.0); %Eosinophils 3.1 % (0.0-10.0); %Lymphocytes 15.5 % (21.0-51.0); %Monocytes 8.9 % (0.0-10.0); %Neutrophils 71.8 % (42.0-75.0); Hemoglobin 11.1 g/dL (12.0-16.0); Mean Corpuscular HGB CONC 33.6 g/dL (32.0-36.0); Mean Corpuscular Hemoglobin 33.8 pg (27.0-31.0); Mean Platelet Volume 5.1 fL (7.4-10.4); Platelet Count 332 thou/uL (130-400); RBC Distribution Width 13.1 % (11.5-14.5); Red Blood Cell (RBC) Count 3.28 mill/uL (4.20-5.40)
[2017-10-14 17:40] LABS: ALT (SGPT) 8 U/L (8-55); AST (SGOT) 15 U/L (5-34); Albumin 3.7 g/dL (3.4-4.8); Alkaline Phosphatase 92 U/L (40-150); Anion Gap 15 mmol/L (10-20); BUN (Urea Nitrogen) 19 mg/dL (9.8-20.1); Bilirubin, Total 0.2 mg/dL (0.2-1.2); Calc. Creatinine Clearance 0 mL/min (70-130); Calcium 9.9 mg/dL (7.8-10.44); Carbon Dioxide 27 mmol/L (23-31); Chloride 98 mmol/L (98-107); Estimated GFR-MDRD 68; Globulin 3.7 g/dL (2.4-3.5); Glucose 103 mg/dL (80-115); Lipase 26 U/L (8-78); Potassium 4.4 mmol/L (3.5-5.1); Protein, Total 7.4 g/dL (6.0-8.3); Sodium 136 mmol/L (136-145)
[2017-10-14] MEDS ORDERED: Pantoprazole 40 MG VIAL ONE (18:03)
--- NOTE | 2017-10-14 19:01 | CT ---
CT ABDOMEN AND PELVIS: Date: 10-14-17 Comparison: 03-11-17 History: Left sided abdominal pain. Technique: Serial axial CT imaging is obtained at 5 mm intervals from lung bases through pubic symphy sis with intravenous contrast. Coronal reformatted imaging obtained. FINDINGS: There is an incompletely evaluated area of coarse abnormal linear and nodular density within the post erior aspect of the right lower lobe with a small area of cavitation extending to involve the inferio r and posterior aspect of the right lower lobe. The more nodular linear component seen superiorly was not fully evaluated on prior imaging. The inferior component appears stable. A chronic area of scar or area of prior insult involving the right lower lobe is suspected. A follow up nonemergent dedicate d contrast enhanced CT examination of the chest is advised for full characterization. No free intraperitoneal air or fluid is seen. The uterus appears surgically absent. The peripheral co ntour of the liver is irregular/nodular, suggesting hepatic cirrhosis, a stable finding. There is mil d nonspecific wall thickening versus under distention of the gastric antrum. This is best seen on axi al images 36 through 40. Gallbladder, spleen, pancreas, adrenal glands, and kidneys demonstrate no acute findings. There is hy poplasia involving both kidneys, a stable finding. Stable aneurysm of the splenic artery on image 27 noted, measuring in the 1.2 cm range. No evidence for bowel inflammatory change or obstruction noted. The vascular structures of the abdomen and pelvis appear patent. No lymphadenopathy is noted. Review of the osseous structures demonstrates post-operative screws traversing the left femoral neck. There is multilevel degenerative change within the lumbar spine. This is most prominent in the regio n of the lower lumbar spine facet joints bilaterally. IMPRESSION: 1. Focal area of gastric antral wall thickening versus under distention. Inflammatory thickening in t he proper clinical setting cannot be excluded. Clinical correlation is essential. Recommend direct vi sualization on a nonemergent basis for full assessment. Neoplasia in the proper clinical setting jose a ot be excluded. 2. Findings suggesting hepatic cirrhosis. 3. Linear and nodular density in right lower lobe with associate cavitary change, likely chronic in n ature. Recommend a full evaluation via follow up contrast enhanced chest CT. Code T POS: [facility]
[2017-10-14 19:09] LABS: Bilirubin Negative (Negative); Blood, Urine Trace (Negative); Clarity Slightly Cloudy (Clear); Glucose, Urine (Dipstick) Negative (Negative); Leukocyte Trace (Negative); Nitrite Positive (Negative); Protein, Urine (Dipstick) Negative (Neg-Trace); Urobilinogen 0.2 mg/dL (0.2-1.0); pH, Urine 7.5 (5.0-9.0)
[2017-10-14 19:11] LABS: Bacteria/HPF 1+ HPF (None Seen); Crystals/HPF 1+ AMORPH PHOS HPF (Negative); RBC/HPF 0-3 HPF (0-3); Squamous Epithelial 0-3 HPF (0-3)
[2017-10-14] MEDS ORDERED: Ondansetron HCl/PF 4 MG/2 ML Vial IVP PRN (20:01)
[2017-10-14] MEDS ORDERED: Ondansetron ODT 4 MG TAB SL PRN (20:01)
[2017-10-14] MEDS: Sodium Chloride 0.9% 1,000 ML IV SCH (21:00)
[2017-10-14 21:02] VITALS: BMI 30.9
[2017-10-14] MEDS ORDERED: Thiamine HCl 200 MG/2 ML VIAL IM SCH (22:15)
[2017-10-14] MEDS ORDERED: Diazepam 5 MG TAB PO SCH (22:15)
[2017-10-14] MEDS ORDERED: Lorazepam 2 MG/ML VIAL SLOW IVP PRN (22:16)
[2017-10-14] MEDS ORDERED: Ketorolac Tromethamine 30 MG/ML VIAL IM/IV PRN (22:18)
[2017-10-14] MEDS ORDERED: CIPRO 500 MG PO SCH (23:00)
[2017-10-15] MEDS: Sodium Chloride 0.9% 1,000 ML IV SCH (04:56)
--- NOTE | 2017-10-15 07:00 | HP ---
CHIEF COMPLAINT: Abdominal pain. HISTORY OF PRESENT ILLNESS: The patient is a 72-year-old female who began to have significant midepi gastric abdominal pain approximately 10 days ago. She started to dilute out her beer mixing it with cranberry juice, seeing if it would help alleviate her pain. It did not. The pain has continued to worsen, so finally she tried to get some pain medication, this dulled the pain, but it's intensity richard s continued to increase such that she finally came to her PCP in [place] who prescribed some medication for her. This only made the pain worse as well such that she finally ended up in [place] [facility] and had a CAT scan of her abdomen. This showed thickening of the gastric wall in her stom ach, at which point, Dr. Thompson was contacted for admission and Dr. Marcos was also contacted for poss ible EGD. She was transferred to [facility]. She describes her pain as severe. 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 There has been mild nausea associated with it, but no actual vomiting . It has not been relieved with anything, it has caused her to lose her appetite and though she woul d normally drink 8-9 beers every day, she actually quit drinking 3-4 days ago because that made the p ain worse. The patient was admitted for similar complaint in July of this year. Her discharge diag nosis at that time was urinary tract infection, hyponatremia, hypokalemia, and history of alcohol abu se. It is incidentally noted at this time that she also has a very mild urinary tract infection, but dysuria and frequency are not her main complaints. PAST MEDICAL HISTORY: The patient has a long history of alcoholism with multiple hospital admissions for detoxification at which point she would go home and go right back into her alcoholism. Her enab ler is her . She also has COPD, fibromyalgia, generalized anxiety disorder, GERD, arthritis i n her hips, peripheral neuropathy, hypertension, frequent urinary tract infections. She is noncompli ant with all her medication. Cirrhosis and a fractured shoulder. PAST SURGICAL HISTORY: Appendectomy, hysterectomy, section x3, left hip surgery. SOCIAL HISTORY: She is . She has been an extensive smoker, but has quit less than 10 years a go. As mentioned previously, she drinks 8-9 beers every day has cut down on her mixed drinks due to the gastritis which she has had before. She follows her beer usually with wine. She does not use il licit drugs. ALLERGIES: She has no known drug allergies. MEDICATIONS ON ADMISSION: Include Valium 2 mg b.i.d., gabapentin 600 mg t.i.d. for her fibromyalgia. The Valium is used for anxiety. REVIEW OF SYSTEMS: CONSTITUTIONAL: She denies any fever, chills, weakness. She has had general malaise and loss of timothy etite due to her abdominal pain. HEENT: Eyes; denies any redness, drainage, photophobia. ENT: Denies rhinorrhea, pain, sores, sore throat. CHEST: Denies cough, shortness of breath, wheezing. CARDIOVASCULAR: Denies palpitations, chest pain, diaphoresis. ABDOMEN: She has midepigastric pain as the reason for coming to the emergency room. She has been an orexic and nauseated. GENITOURINARY: Denies actual dysuria or frequency, blood in urine or stool. MUSCULOSKELETAL: Has diffuse mild aches and pains that the gabapentin treats, but there is no new sw elling or joint stiffness. SKIN: No new rashes or lesions. NEUROLOGIC: No trouble with mentation, confusion, dizziness or falls. PSYCHIATRIC: Her anxiety is baseline and has not been bothering her very much. She denies hallucina tions or any symptoms of tremors or DTs. ENDOCRINE: Denies swelling, lymphedema hot or cold flashes. PHYSICAL EXAMINATION: VITAL SIGNS: At the time of admission, blood pressure 191/101, pulse 108, respirations 20, temperatu re 98.3, pain scale is always at a 10, O2 sat is 94% on room air. Repeat vital signs, blood pressure comes down to 118/75, pulse 100, respirations 20, pain scale still rated at a 10. GENERAL: This is an obese, female, alert, oriented, cooperative. HEENT: Normocephalic and atraumatic. Pupils equal, round, and reactive to light. Extraocular muscl es are intact. Arcus senilis bilaterally. TMs, nares, pharynx are clear. NECK: Supple, trachea midline, no mass, nontender. Normal range of motion. CHEST: Clear to auscultation. BREAST: Deferred. HEART: Regular rate and rhythm without murmur. ABDOMEN: Tender midepigastrically. No guarding or rebound. Abdomen is soft, able to appreciate hep atomegaly. Unable to appreciate any enlargement of any other organs or masses. Her greatest tendern ess is midepigastrically. GENITOURINARY: Deferred. EXTREMITIES: Without clubbing, cyanosis, or edema. Normal range of motion present. There is minor muscular wasting in upper and lower extremities. SKIN: Without acute rashes or lesions. NEUROLOGIC: Cranial nerves are intact. Sensory exam is intact. Mental status is baseline clear. D eep tendon reflexes are just at a 1 in both knee jerks otherwise untested gait or cerebellar function at this time. LABORATORY AND X-RAY FINDINGS: Lab work thus far shows WBC 12, hemoglobin 11.1, hematocrit 33, plate lets at 332, unremarkable dif. Sodium 136, potassium 4.4, chloride 98, CO2 27, BUN 19, creatinine 0. 8 with a GFR of 68. Liver functions unremarkable. Lipase 26. Urinalysis shows trace ketones, trace blood, positive nitrites, WBCs at just 4-6. Abdomen CT shows thickened antral wall of the stomach, possible new cavitary lesions in the right low er lobe of the lung and cirrhotic changes in the liver. ASSESSMENT: 1. Abdominal pain, probably alcohol-induced gastritis, but other etiology needs to be determined. 2. Urinary tract infection. 3. Cirrhosis. 4. Alcoholism. 5. New pulmonary cavitary lesion. 6. General medical noncompliance. 7. Anxiety disorder. 8. Fibromyalgia. PLAN: The plan will be to continue n.p.o. until Dr. Marcos who is familiar with the patient will do an EGD later this morning. Pending those results, will then evaluate the cavitary lesion in her lung . She has been placed on antibiotics for urinary tract infection as well as proton pump inhibitors. We will also prevent DTs by regular doses of Valium, Ativan as a preventative p.r.n., thiamine and f olate have also been instituted. Serial reevaluation will occur. We will also do a Quantiferon to r ule out TB.
[2017-10-15] MEDS ORDERED: Pantoprazole 40 MG VIAL IVP SCH (09:00)
[2017-10-15] MEDS: Folic Acid 1 MG TAB PO SCH (09:18)
[2017-10-15] MEDS: Diazepam 5 MG TAB PO SCH ×2 (09:18→21:19)
[2017-10-15] MEDS: Multivitamin W/ Minerals 1 TAB PO SCH (09:18)
[2017-10-15] MEDS: Gabapentin 300 MG CAP PO SCH ×3 (09:18→21:19)
[2017-10-15] MEDS: Thiamine HCl 200 MG/2 ML VIAL IM SCH (09:19)
[2017-10-15] MEDS: CIPRO 500 MG PO SCH ×2 (09:19→21:19)
[2017-10-15] MEDS ORDERED: Promethazine HCl 25 MG/ML VIAL SLOW IVP PRN (11:27)
[2017-10-15] MEDS ORDERED: Ondansetron HCl/PF 4 MG/2 ML Vial IVP PRN (11:27)
--- NOTE | 2017-10-15 12:16 | CON ---
DATE OF CONSULTATION: 10/15/2017 REASON FOR CONSULTATION: Midepigastric abdominal pain. CONSULTING PHYSICIAN: Dr. Tarun Hameed. HISTORY OF PRESENT ILLNESS: The patient is a 72-year-old female with past medical history of COPD, f ibromyalgia, generalized anxiety disorder, GERD, osteoarthritis, hypertension, frequent urinary tract infections, alcohol dependence, and resultant cirrhosis, presenting with complaints of abdominal narendra n. She states that she was in her usual state of health until approximately 10 days ago when she beg an to experience increased left upper quadrant abdominal pain. She describes this abdominal pain as "inward roaring pain" that was constant and would radiate to the mid epigastric and left flank. The pain severity would reach 10+/10 was worse with physical activity and did not have any clear alleviat ing factors with the severe worsening of her abdominal pain, it prompted her to go to an urgent care clinic where she was given a medication (she cannot recall the name of the medication) that did not a lleviate her pain. She attempted taking over the counter ibuprofen approximately 400 mg x2, again wi th no alleviation of her abdominal pain, at which point she was prompted her to seek healthcare [facility] at [facility]. In the ER, she was noted to have abnormal GI imaging and admitted to the [facility] for further evaluation. Currently, the patient denies any nausea or vomiting, but did have leodan e vomiting associated with increased abdominal pain. She denies any hematemesis, melena, hematochezi a, dysphagia, odynophagia or weight loss within the last 1-2 months. REVIEW OF SYSTEMS: A 10-category review of systems was obtained with all responses negative except f or the pertinent positives as listed in the HPI. PAST MEDICAL HISTORY: As per HPI. PAST SURGICAL HISTORY: Appendectomy, hysterectomy, section x3, left hip surgery. FAMILY HISTORY: Denies any GI malignancies. SOCIAL HISTORY: Drinks approximately 8-9 beers daily and has been doing so for many years. She rece ntly cut down with the onset of her increased abdominal pain, but was drinking approximately 1-2 days prior to admission. She quit smoking tobacco approximately 10 years ago. Denies any illicit drug u se. OUTPATIENT MEDICATIONS: Valium 2 mg twice daily, gabapentin 600 mg 3 times daily. ALLERGIES: No known drug allergies. PHYSICAL EXAMINATION: VITAL SIGNS: Temperature 97.5, pulse 86, blood pressure 123/81, respiratory rate 14, and satting 100 % on room air. GENERAL: The patient lying in bed in no acute distress. She is alert and oriented x4. NECK: Supple. No JVD noted. CARDIOVASCULAR: Regular rate and rhythm with no discernible murmurs, gallops, or rubs. RESPIRATORY: Diminished lung sounds in all lung velarde without any discernible wheezes or rales. ABDOMEN: Normoactive bowel sounds, soft, nondistended. Tenderness to palpation in the midepigastric left upper quadrant and periumbilical regions. EXTREMITIES: No cyanosis, clubbing or edema. LABORATORY DATA: CBC with a white blood cell count of 12, hemoglobin 11.1, hematocrit 33, platelets are 332. Chemistry: Sodium 136, potassium 4.4, chloride 98, CO2 of 27, BUN 19, creatinine 0.83, glu cose 103, AST 15, ALT 8, alkaline phosphatase 92, total bilirubin 0.2, lipase 26. CT of the abdomen and pelvis obtained on 10/14/2017 showed a cavitated lesion within the posterior right lobe of her shahid ngs. The liver contour was also noted to be irregular and nodular suggestive of cirrhosis. Also not ed was mild nonspecific thickening of the gastric antrum, which could be due to inflammatory process or under distention. There was no evidence of small bowel or colonic inflammation. ASSESSMENT AND PLAN: The patient is a 72-year-old female with past medical history of chronic obstru ctive pulmonary disease, fibromyalgia, generalized anxiety disorder, osteoarthritis, hypertension, fr equent urinary tract infections, gastroesophageal reflux disease, alcohol dependence and resultant ci rrhosis presenting with mid epigastric/left upper quadrant abdominal pain. Left upper quadrant abdominal pain. The patient is presenting with a 10-day history of worsening left upper quadrant abdominal pain nataly cterized as a "inward roaring pain" that would radiate to the midepigastric and periumbilical regions , it was constant and would reach a severity of 10/10. She does not endorse any clear alleviating or exacerbating factors and was not amenable to administration of pain medications as an outpatient. O n admission, she was noted to have a CT scan showing abnormal findings within the right lung, but als o nonspecific thickening of the gastric antrum concerning for an inflammatory process. At this point , the CT scans are very nonspecific in terms of the etiology of her abdominal pain with a differentia l including gastritis, peptic ulcer disease, portal hypertensive gastropathy, pancreatitis (acute or chronic) medication-induced gastritis, acid reflux, and/or possible GI neoplasm (much less likely). RECOMMENDATIONS: 1. We would continue the patient n.p.o. for now with IV fluid resuscitation. 2. We will plan for EGD later on this morning for evaluation of the upper gastrointestinal tract. 3. Pain control per primary team. 4. We would strongly recommend alcohol cessation as this could potentially cause chemical irritation of the lining of the gastrointestinal tract. 5. Further recommendations to follow upper endoscopy.
--- NOTE | 2017-10-15 12:52 | OP ---
DATE OF PROCEDURE: 10/15/2017 PROCEDURE: Esophagogastroduodenoscopy with biopsy and control of hemorrhage. INDICATION FOR PROCEDURE: Midepigastric abdominal pain. DESCRIPTION OF PROCEDURE: After the risks and benefits of the procedure were explained to the patient including risks of bleeding, infection, perforation, reaction to anesthesia and/or pain, informed consent was obtained. The patient was then taken to the endoscopy suite where deep sedation was administered via propofol and anesthesia support. Once adequate sedation was achieved, the standard gastroscope was introduced into the mouth with intubation of the esophagus, stomach, and the proximal small intestine with the findings listed below. The patient tolerated the procedure well with no immediate perioperative complications. FINDINGS: Esophagus: Normal-appearing mucosa was seen in the proximal, mid, and distal esophagus. There was no evidence of erosions, ulcerations, mass lesions, or active/recent bleeding. The diaphragmatic pinch was seen at 39 cm while the GE junction was seen at approximately 37 cm denoting a 2 cm hiatal hernia. Stomach: Normal-appearing mucosa was seen in the gastric cardia, fundus, body, and incisura. In the distal antrum, a clean based, 1-2 cm cratered ulceration without high-risk stigmata was seen in the prepyloric region. There was no evidence of active or recent bleeding but had fibrinous exudate overlying the ulceration itself. Multiple biopsies were taken from the ulcer and the ulcer edges for evaluation. However, during the course of taking biopsies, minimal bleeding was seen from the center of the ulcer that did not stop with prolonged observation. Ultimately, hemostasis was achieved with bipolar cautery with a 7- Slovenian bipolar catheter applied to the area in question with good hemostasis achieved. No further evidence of continued bleeding was seen throughout the remainder of the examination. There was no evidence of mass lesions associated with this ulceration. Duodenum: Normal-appearing mucosa was seen in both the duodenal bulb and second portion of the duodenum. There was no evidence of erosions, ulcerations , mass lesions, or active/recent bleeding. IMPRESSION: 1. A 1-2 cm cratered ulcerations seen in the gastric antrum/prepyloric region without high-risk stigmata of bleeding, status post biopsies and bipolar cautery (secondary to biopsies). 2. A 2 cm hiatal hernia. RECOMMENDATIONS: 1. We would continue to trend H and H and transfuse as necessary to maintain an H and H of 7/21. 2. We would monitor for signs of active gastrointestinal bleeding. 3. We would transfer patient to PPI twice daily as part of treatment for this gastric ulceration. 4. Pain control per primary team, but we would avoid all NSAIDs. 5. We will start the patient on a clear liquid diet, again will continued monitor for bleeding. 6. The patient will need a repeat EGD in 8-12 weeks after this procedure for reevaluation of this ulceration and to confirm healing. 7. We will follow up on biopsy results. If positive for H. pylori, we will treat appropriately. [facility]
[2017-10-15] MEDS ORDERED: PROPOFOL 200 MG/20 ML VIAL ONE (13:06)
[2017-10-15] MEDS ORDERED: Lidocaine 1% PF 5 ML VIAL ONE (13:06)
[2017-10-15] MEDS: Pantoprazole 40 MG VIAL IVP SCH (21:18)
[2017-10-16 05:16] LABS: #Eosinphils 0.7 thou/uL (0.0-0.7); #Lymphocytes 1.8 thou/uL (1.20-3.40); #Monocytes 0.7 thou/uL (0.11-0.59); #Neutrophils 3.1 thou/uL (1.40-6.50); %Basophils 0.7 % (0.0-1.0); %Eosinophils 11.2 % (0.0-10.0); %Monocytes 10.5 % (0.0-10.0); %Neutrophils 49.6 % (42.0-75.0); Hemoglobin 9.8 g/dL (12.0-16.0); Mean Corpuscular HGB CONC 33.4 g/dL (32.0-36.0); Mean Corpuscular Hemoglobin 34.6 pg (27.0-31.0); Mean Platelet Volume 5.3 fL (7.4-10.4); Platelet Count 324 thou/uL (130-400); RBC Distribution Width 12.6 % (11.5-14.5); Red Blood Cell (RBC) Count 2.84 mill/uL (4.20-5.40); White Blood Cell (WBC) Count 6.2 thou/uL (4.8-10.8)
[2017-10-16 05:27] LABS: Anion Gap 9 mmol/L (10-20); BUN (Urea Nitrogen) 7 mg/dL (9.8-20.1); Calc. Creatinine Clearance 82 mL/min (70-130); Calcium 8.8 mg/dL (7.8-10.44); Carbon Dioxide 28 mmol/L (23-31); Chloride 105 mmol/L (98-107); Estimated GFR-MDRD 74; Glucose 87 mg/dL (80-115); Potassium 4.7 mmol/L (3.5-5.1); Sodium 137 mmol/L (136-145)
[2017-10-16] MEDS: Thiamine HCl 200 MG/2 ML VIAL IM SCH (07:54)
[2017-10-16] MEDS: Multivitamin W/ Minerals 1 TAB PO SCH (07:54)
[2017-10-16] MEDS: Pantoprazole 40 MG VIAL IVP SCH ×2 (07:54→20:00)
[2017-10-16] MEDS: Gabapentin 300 MG CAP PO SCH ×3 (07:54→20:00)
[2017-10-16] MEDS: Folic Acid 1 MG TAB PO SCH (07:55)
[2017-10-16] MEDS: CIPRO 500 MG PO SCH ×2 (07:55→20:01)
[2017-10-16] MEDS: Diazepam 5 MG TAB PO SCH ×2 (07:55→20:00)
--- NOTE | 2017-10-16 10:25 | CT ---
CHEST CT SCAN WITH IV CONTRAST: HISTORY: Cough. Left upper quadrant abdominal pain. History of chronic obstructive pulmonary disease with cl inical concern for TB. TECHNIQUE: Post contrast CT examination of the chest is performed. FINDINGS: There is no mediastinal mass or significant adenopathy. There is some mild biapical pleural-based sc arring. There also appears to be some scarring in the superior segment of the right lower lobe with an associated 1 x 2.7 cm thin-walled bullae. There is some associated posterior pleural thickening. There also appears to be some scarring in the right middle lobe and lingula, as well as the lateral aspect of the right lower lobe, superiorly. No evidence for acute pleural effusion. No pulmonary ma ss or nodule. Review of a prior PA and lateral chest, dated 03/16/2014, demonstrates some parenchyma l disease in the superior segment of the right lower lobe at that time. IMPRESSION: Some irregular linear parenchymal changes having more the appearance of scarring in the superior segm ent of the right lower lobe with associated small thin-walled bullae. Several other areas of scarrin g, including the subpleural regions of the apices, superolateral aspect of right lower lobe, right mi ddle lobe, and lingula. No evidence for significant acute intrathoracic disease. No mediastinal mas s or adenopathy. No pleural effusion. POS: [facility]
[2017-10-16] MEDS ORDERED: ISOVUE-370 76%-LOCM 1 ML ONE (12:50)
[2017-10-16] MEDS ORDERED: traMADol HCl 50 MG TAB PO PRN (18:32)
--- NOTE | 2017-10-17 01:49 | PRG ---
DATE OF SERVICE: 10/16/2017 SUBJECTIVE: The patient is without complaints. She is tolerating full liquid diet. She has no connie na. She denies having DTs or withdrawals in the past and states she has not really stopped drinking alcohol in the past ____. OBJECTIVE: VITAL SIGNS: Temperature is 97.5, pulse 84, blood pressure 153/90. LUNGS: Clear. ABDOMEN: Soft, nontender, no rebound or guarding. LABORATORY STUDIES: White count 6.2, hemoglobin 9.8, platelet count 324. Sodium 137, potassium 4.7, BUN and creatinine are 7 and 0.77. Lipase was 26 on admission. ASSESSMENT: 1. Gastric ulcer, biopsies pending. No signs of bleeding at this time. 2. Alcoholism with significant alcohol use on a daily basis at risk for delirium tremens and withdra wal. 3. Prior history of heavy nonsteroidal antiinflammatory drug use, likely cause of ulcers along with alcohol. RECOMMENDATIONS: 1. Continue IV PPI. 2. Continue thiamine, multivitamin, and folate. 3. We would stop Toradol ____ may precipitate further problems with ulcer. 4. Agree with diazepam. 5. Continue Ultram for pain. 6. We will advance diet.
[2017-10-17 04:18] LABS: #Basophils 0.1 thou/uL (0.0-0.2); #Eosinphils 0.5 thou/uL (0.0-0.7); #Monocytes 0.7 thou/uL (0.11-0.59); #Neutrophils 2.7 thou/uL (1.40-6.50); %Basophils 1.2 % (0.0-1.0); %Eosinophils 8.8 % (0.0-10.0); %Lymphocytes 33.9 % (21.0-51.0); %Monocytes 11.8 % (0.0-10.0); %Neutrophils 44.3 % (42.0-75.0); Hemoglobin 10.8 g/dL (12.0-16.0); Mean Corpuscular HGB CONC 33.7 g/dL (32.0-36.0); Mean Corpuscular Hemoglobin 34.6 pg (27.0-31.0); Mean Platelet Volume 5.3 fL (7.4-10.4); Platelet Count 397 thou/uL (130-400); RBC Distribution Width 12.6 % (11.5-14.5); Red Blood Cell (RBC) Count 3.13 mill/uL (4.20-5.40)
[2017-10-17 04:38] LABS: Anion Gap 13 mmol/L (10-20); BUN (Urea Nitrogen) 4 mg/dL (9.8-20.1); Calc. Creatinine Clearance 85 mL/min (70-130); Calcium 9.2 mg/dL (7.8-10.44); Carbon Dioxide 26 mmol/L (23-31); Chloride 102 mmol/L (98-107); Estimated GFR-MDRD 76; Glucose 87 mg/dL (80-115); Phosphorus 3.1 mg/dL (2.3-4.7); Potassium 4.1 mmol/L (3.5-5.1); Sodium 137 mmol/L (136-145)
[2017-10-17] MEDS: Diazepam 5 MG TAB PO SCH (07:50)
[2017-10-17] MEDS: Thiamine HCl 200 MG/2 ML VIAL IM SCH (07:50)
[2017-10-17] MEDS: Pantoprazole 40 MG VIAL IVP SCH (07:50)
[2017-10-17] MEDS: Gabapentin 300 MG CAP PO SCH (07:50)
[2017-10-17] MEDS: Folic Acid 1 MG TAB PO SCH (07:51)
[2017-10-17] MEDS: CIPRO 500 MG PO SCH (07:51)
[2017-10-17] MEDS: Multivitamin W/ Minerals 1 TAB PO SCH (07:51)
[2017-10-17 08:47] VITALS: BP 156/92; TEMP 98.5
== END 2017-10-17 10:08 | disposition home or self-care (01) | DRG 392 ==
LOC: SCSER 16:33 → SURG B 18:30 → OBSVTOIN 10-15 12:10 → T4-B 10-16 07:05
PROVIDERS: ADMIT Specialist; ATTEND Specialist
PROC: 0DB68ZX Excision of Stomach, Via Natural or Artificial Opening Endoscopic, Diagnostic (ICD-10-PCS; principal; 2017-10-15)
PROC: 0W3P8ZZ Control Bleeding in Gastrointestinal Tract, Via Natural or Artificial Opening Endoscopic (ICD-10-PCS; 2017-10-15)
DX: K29.20 Alcoholic gastritis without bleeding (principal); F10.20 Alcohol dependence, uncomplicated; Y90.9 Presence of alcohol in blood, level not specified; K44.9 Diaphragmatic hernia without obstruction or gangrene; J44.9 Chronic obstructive pulmonary disease, unspecified; M79.7 Fibromyalgia; F41.1 Generalized anxiety disorder; K21.9 Gastro-esophageal reflux disease without esophagitis; I10 Essential (primary) hypertension; K74.60 Unspecified cirrhosis of liver; Z87.440 Personal history of urinary (tract) infections
CPT/HCPCS: 36415; 71260; 74177; 80048; 80053; 81003; 81015; 83605; 83690; 83735; 84100; 85025; 86480; 88305; 88312; 88341; 88342; 89060; 96361; 96365; 96375; C9113; J1885; J2001; J2270; J2405; J2704; J3411

== ENCOUNTER 2018-08-14 10:51 | Emergency (ER) | payer MEDICARE ==
[2018-08-14] MEDS ORDERED: Pantoprazole 40 MG VIAL ONE (12:04)
[2018-08-14] MEDS ORDERED: Ondansetron PF 4 MG/2 ML Vial ONE (12:04)
[2018-08-14 13:38] LABS: %Basophils 1.6 % (0.0-1.0); %Eosinophils 0.5 % (0.0-10.0); %Lymphocytes 28.6 % (21.0-51.0); %Monocytes 14.5 % (0.0-10.0); %Neutrophils 54.8 % (42.0-75.0); Anisocytosis SLIGHT = 6-15 cells (100X) (0-5/hpf); Band 2 % (5-11); Hemoglobin 12.7 g/dL (12.0-16.0); Lymphocytes 25 % (21-51); MDiff Complete? YES; Macrocytosis SLIGHT = 6-15 cells (100X) (0-5/hpf); Mean Corpuscular Hemoglobin 35.4 pg (27.0-31.0); Mean Platelet Volume 5.7 fL (7.4-10.4); Monocytes 9 % (0-10); Neutrophil 63 % (42-75); Platelet Count 225 thou/uL (130-400); Platelet Morphology Comment Appears Adequate; RBC Distribution Width 16.3 % (11.5-14.5); Reactive Lymphocytes 1 % (0-10); Stomatocytes SLIGHT = 2-5 cells (100X) (0-1/hpf); Target Cells SLIGHT = 2-5 cells (100X) (0-1/hpf); White Blood Cell (WBC) Count 5.2 thou/uL (4.8-10.8)
[2018-08-14 13:40] LABS: ALT (SGPT) 25 U/L (8-55); AST (SGOT) 84 U/L (5-34); Albumin 3.6 g/dL (3.4-4.8); Alkaline Phosphatase 161 U/L (40-150); Anion Gap 17 mmol/L (10-20); BUN (Urea Nitrogen) 5 mg/dL (9.8-20.1); Bilirubin, Total 2.4 mg/dL (0.2-1.2); Calc. Creatinine Clearance 0 mL/min (70-130); Calcium 8.9 mg/dL (7.8-10.44); Carbon Dioxide 25 mmol/L (23-31); Chloride 94 mmol/L (98-107); Estimated GFR-MDRD 80; Globulin 3.4 g/dL (2.4-3.5); Glucose 94 mg/dL (83-110); Lipase 20 U/L (8-78); Potassium 4.5 mmol/L (3.5-5.1); Sodium 131 mmol/L (136-145)
[2018-08-14 13:53] LABS: Bilirubin Small (Negative); Blood, Urine Trace (Negative); Clarity Cloudy (Clear); Glucose, Urine (Dipstick) Negative (Negative); Leukocyte Large (Negative); Nitrite Negative (Negative); Protein, Urine (Dipstick) Trace mg/dL (Neg-Trace); Specific Gravity, Urine 1.004 (1.002-1.036)
[2018-08-14 13:59] LABS: Bacteria/HPF 3+ HPF (None Seen); Renal Epithelial 0-3 HPF (0-3); Squamous Epithelial 0-3 HPF (0-3)
--- NOTE | 2018-08-14 14:23 | CT ---
CT OF THE ABDOMEN AND PELVIS WITH IV CONTRAST INDICATION: Suprapubic abdominal pain COMPARISON: October 14, 2017 FINDINGS: ABDOMEN: Lung bases: Stable scarring in the right lower lobe Liver: Stable findings of cirrhosis with fatty infiltration Gallbladder: Normal appearing. Pancreas: Normal. Adrenal glands: Normal. Spleen: Spleen is normal in size. Small splenic artery aneurysms are stable. Kidneys: Normal. Retroperitoneum of the upper abdomen: No lymphadenopathy or free fluid is identified. Pelvis: Small and large bowel: Normal Bladder: There is wall thickening with perivesicular fat stranding Rectal and perirectal soft tissues:Normal. Reproductive structures: Normal. Free fluid in pelvis: No free fluid is evident. Lymphadenopathy pelvis: No lymphadenopathy is evident. Osseous structures: There is stable osteonecrosis of the right femoral head without evidence of subch ondral collapse. There is stable percutaneous pins within the left hip. There is a stable mild compression abnormality of T11. There is diffuse osteopenia. There is scattered degenerative and ost eoarthritic changes. IMPRESSION: 1. Findings suspicious for cystitis 2. Improvement in the gastric antral wall thickening seen on the prior exam. 3. Stable findings of cirrhosis 4. Stable splenic artery aneurysms 5. Stable chronic findings involving the osseous structures as above
[2018-08-14] MEDS ORDERED: cefTRIAXone\\ROCEPHIN 1 GM VIAL ONE (14:28)
[2018-08-14] MEDS ORDERED: Sodium Chloride 0.9% 100 ML ONE (14:28)
== END 2018-08-14 15:14 | disposition home or self-care (01) ==
LOC: SCSER 10:51
DX: N30.00 Acute cystitis without hematuria (principal); K74.60 Unspecified cirrhosis of liver; Z87.891 Personal history of nicotine dependence; Z79.899 Other long term (current) drug therapy
CPT/HCPCS: 36415; 74177; 80053; 81003; 81015; 83605; 83690; 85025; 87077; 87086; 87186; 93005; 96361; 96365; 96375; C9113; J0696; J2405; J3490; Q9967

== ENCOUNTER 2018-11-10 14:04 | Emergency (ER) | payer MEDICARE ==
[2018-11-10] MEDS ORDERED: Ondansetron PF 4 MG/2 ML Vial ONE (14:59)
[2018-11-10 15:37] LABS: #Lymphocytes 1.2 thou/uL (1.20-3.40); #Monocytes 0.6 thou/uL (0.11-0.59); #Neutrophils 3.4 thou/uL (1.40-6.50); %Basophils 0.8 % (0.0-1.0); %Eosinophils 0.2 % (0.0-10.0); %Lymphocytes 23.2 % (21.0-51.0); %Monocytes 10.9 % (0.0-10.0); %Neutrophils 64.9 % (42.0-75.0); Anisocytosis SLIGHT = 6-15 cells (100X) (0-5/hpf); Hemoglobin 10.1 g/dL (12.0-16.0); Hypochromia SLIGHT = 6-15 cells (100X) (0-5/hpf); MDiff Complete? YES; Macrocytosis SLIGHT = 6-15 cells (100X) (0-5/hpf); Mean Corpuscular HGB CONC 32.7 g/dL (32.0-36.0); Mean Corpuscular Hemoglobin 38.6 pg (27.0-31.0); Mean Platelet Volume 5.6 fL (7.4-10.4); Platelet Count 200 thou/uL (130-400); Platelet Morphology Comment Appears Adequate; RBC Distribution Width 16.2 % (11.5-14.5); Red Blood Cell (RBC) Count 2.62 mill/uL (4.20-5.40); Stomatocytes SLIGHT = 2-5 cells (100X) (0-1/hpf); Target Cells SLIGHT = 2-5 cells (100X) (0-1/hpf); White Blood Cell (WBC) Count 5.2 thou/uL (4.8-10.8)
[2018-11-10 15:38] LABS: ALT (SGPT) 35 U/L (8-55); AST (SGOT) 134 U/L (5-34); Albumin 3.5 g/dL (3.4-4.8); Alkaline Phosphatase 149 U/L (40-150); Anion Gap 20 mmol/L (10-20); BUN (Urea Nitrogen) 5 mg/dL (9.8-20.1); Bilirubin, Total 2.3 mg/dL (0.2-1.2); Calc. Creatinine Clearance 0 mL/min (70-130); Calcium 8.7 mg/dL (7.8-10.44); Carbon Dioxide 25 mmol/L (23-31); Chloride 90 mmol/L (98-107); Estimated GFR-MDRD 61; Globulin 3.6 g/dL (2.4-3.5); Glucose 105 mg/dL (83-110); Lipase 16 U/L (8-78); Potassium 4.5 mmol/L (3.5-5.1); Protein, Total 7.1 g/dL (6.0-8.3); Sodium 130 mmol/L (136-145)
[2018-11-10] MEDS ORDERED: Pantoprazole 40 MG VIAL ONE (15:55)
[2018-11-10 16:30] LABS: Bilirubin Negative (Negative); Blood, Urine Small (Negative); Clarity Cloudy (Clear); Glucose, Urine (Dipstick) Negative (Negative); Leukocyte Large (Negative); Nitrite Negative (Negative); Protein, Urine (Dipstick) 100 mg/dL (Neg-Trace)
[2018-11-10 16:38] LABS: WBC/HPF Greater Than 50 HPF (0-3)
[2018-11-10 16:39] LABS: Bacteria/HPF 4+ HPF (None Seen); Mucous/LPF 1+ LPF (<2+); Squamous Epithelial 0-3 HPF (0-3)
[2018-11-10] MEDS ORDERED: cefTRIAXone\\ROCEPHIN 2 GM VIAL ONE (17:02)
[2018-11-10] MEDS ORDERED: Sodium Chloride 0.9% 100 ML ONE (17:05)
[2018-11-10] MEDS ORDERED: Thiamine HCl 200 MG/2 ML VIAL ONE (17:29)
== END 2018-11-10 18:06 | disposition home or self-care (01) ==
LOC: SCSER 14:04
DX: N39.0 Urinary tract infection, site not specified (principal); K29.00 Acute gastritis without bleeding; F10.20 Alcohol dependence, uncomplicated; J44.9 Chronic obstructive pulmonary disease, unspecified; M79.7 Fibromyalgia; F32.9 Major depressive disorder, single episode, unspecified; Z87.891 Personal history of nicotine dependence; Z79.899 Other long term (current) drug therapy
CPT/HCPCS: 80053; 81003; 81015; 82274; 83690; 85025; 96361; 96365; 96375; C9113; J0696; J2405; J3411; J3490

== ENCOUNTER 2019-01-26 09:43 | Emergency (ER) | payer MEDICARE ==
[~2019-01-26 09:43] MED LIST changes: +Iopamidol 300 61% 100 ML VIAL FS ONE; -Iopamidol 370 76% 100 ML VIAL ONE
[2019-01-26] MEDS ORDERED: Ondansetron PF 4 MG/2 ML Vial ONE (10:15)
[2019-01-26 10:32] LABS: Hemoglobin 11.5 g/dL (12.0-16.0); Mean Corpuscular HGB CONC 33.6 g/dL (32.0-36.0); Mean Corpuscular Hemoglobin 41.6 pg (27.0-31.0); Mean Platelet Volume 5.4 fL (7.4-10.4); Platelet Count 218 thou/uL (130-400); RBC Distribution Width 14.6 % (11.5-14.5); Red Blood Cell (RBC) Count 2.78 mill/uL (4.20-5.40); White Blood Cell (WBC) Count 13.8 thou/uL (4.8-10.8)
[2019-01-26 10:45] LABS: Band 18 % (5-11); Lymphocytes 4 % (21-51); MDiff Complete? YES; Macrocytosis SLIGHT = 6-15 cells (100X) (0-5/hpf); Monocytes 1 % (0-10); Neutrophil 77 % (42-75); Toxic Granulation SLIGHT; Vacuoles SLIGHT
[2019-01-26] MEDS ORDERED: Thiamine HCl 200 MG/2 ML VIAL ONE (10:46)
[2019-01-26] MEDS ORDERED: Multivit, Adult Inj 10 ML VIAL ONE (10:46)
[2019-01-26 10:48] LABS: ALT (SGPT) 17 U/L (8-55); AST (SGOT) 90 U/L (5-34); Acetaminophen Less than 6.0 mcg/mL (10.0-30.0); Albumin 3.2 g/dL (3.4-4.8); Alcohol Less than 10 mg/dL (Less than 10); Alkaline Phosphatase 139 U/L (40-110); Anion Gap 27 mmol/L (10-20); BUN (Urea Nitrogen) 7 mg/dL (9.8-20.1); Bilirubin, Total 1.8 mg/dL (0.2-1.2); CK (CPK) 22 U/L (29-168); Calc. Creatinine Clearance 0 mL/min (70-130); Calcium 8.6 mg/dL (7.8-10.44); Carbon Dioxide 17 mmol/L (23-31); Chloride 96 mmol/L (98-107); Estimated GFR-MDRD 45; Globulin 3.7 g/dL (2.4-3.5); Glucose 75 mg/dL (83-110); Lipase 11 U/L (8-78); Magnesium 1.2 mg/dL (1.6-2.6); Phosphorus 3.9 mg/dL (2.3-4.7); Potassium 4.7 mmol/L (3.5-5.1); Protein, Total 6.9 g/dL (6.0-8.3); Salicylate Less than 8.0 mg/dL (15.0-30.0); Sodium 135 mmol/L (136-145)
[2019-01-26] MEDS ORDERED: cefTRIAXone\\ROCEPHIN 1 GM VIAL ONE (11:18)
[2019-01-26] MEDS ORDERED: Sodium Chloride 0.9% 100 ML ONE (11:18)
--- NOTE | 2019-01-26 11:22 | RAD ---
EXAM: Single view of the chest HISTORY: Dyspnea and nausea COMPARISON: 03/11/2017 FINDINGS: Single view of the chest shows a normal sized cardiomediastinal silhouette. There is no david dence of consolidation, mass, or pleural effusion. The bones are unremarkable. IMPRESSION: No evidence of acute cardiopulmonary disease
[2019-01-26 12:14] LABS: Bilirubin Negative (Negative); Blood, Urine Moderate (Negative); Clarity Turbid (Clear); Glucose, Urine (Dipstick) Negative (Negative); Leukocyte Moderate (Negative); Nitrite Negative (Negative); Protein, Urine (Dipstick) > or equal to 300 mg/dL (Neg-Trace); Urobilinogen 0.2 mg/dL (Less than 2)
[2019-01-26 12:25] LABS: Renal Epithelial 0-3 HPF (None Seen); Transitional Epithelial 0-3 HPF (None Seen); WBC/HPF Greater Than 50 HPF (0-3)
[2019-01-26 12:26] LABS: Bacteria/HPF 3+ HPF (None Seen)
[2019-01-26 12:28] LABS: Amphetamine Not Detected (NotDetected); Barbiturates Screen Not Detected (NotDetected); Benzodiazepine Screen Detected (NotDetected); Cocaine Metabolite Screen Not Detected (NotDetected); Medtox Control Line Valid? VALID (VALID); Methadone Not Detected (NotDetected); Methamphetamine Not Detected (NotDetected); Opiate Screen Not Detected (NotDetected); Oxycodone Screen Not Detected (NotDetected); Phencyclidine (PCP) Not Detected (NotDetected); THC/Cannabinoid Screen Not Detected (NotDetected); Tricyclic Screen Not Detected (NotDetected)
[2019-01-26] MEDS ORDERED: Acetaminophen 325 MG TAB ONE (13:00)
[2019-01-26] MEDS ORDERED: Pantoprazole 40 MG VIAL ONE (13:31)
--- NOTE | 2019-01-26 14:23 | CT ---
CT ABDOMEN WITH CONTRAST CT PELVIS WITH CONTRAST: DATE: 01/26/19 HISTORY: 73-year-old female with nausea, vomiting, and diarrhea. COMPARISON: 08/14/18. TECHNIQUE: IV injection of iodinated contrast media: 60 mL [id number]. Oral contrast media: Not administered. FINDINGS: There is a new finding of moderate fluid/edema/fat stranding throughout the right perirenal space, wi th the unorganized fluid tracking down along the right anterior and posterior pararenal fascia into t he pelvic inlet. There is a tiny amount of free fluid within the pelvic cavity, spilling over from th is. The right kidney is slightly larger than it was on 08/14/18. There is a new finding of mural enhancem ent of the right renal calices and right renal pelvis. There is prominence of the bilateral extrarena l pelves, but not significantly worse than previously. Mild prominence of right calices. No focal per fusion defect in either the right or left nephrograms. No solid or cystic renal mass identified. No s triations of the nephrograms. Again noted is the diffusely low hepatic attenuation consistent with fatty liver. Left lobe of the li onur is enlarged. Right lobe is small. No portal vein thrombosis. Absent gallbladder. No splenomegaly. Small, calcified splenic artery aneurysm, stable. Unremarkable pancreas and abdominal aorta. Appendi x not visualized. No small bowel dilation. No colonic diverticulitis. Urinary bladder lakhani, which we re diffusely mildly thickened previously, with enhancement, are now thin and normal. No calculus iden tified in the ureters, bladder, or kidneys. No small bowel dilation. No pneumoperitoneum. Left lung b ase clear. Chronic changes consistent with scar at posteromedial aspect of superior segment of right lower lobe, unchanged. Screws in the left femoral head and neck. Uterus is absent. IMPRESSION: 1. Moderately severe edema throughout the right perirenal space. 2. Mural thickening and mural enhancement of right renal collecting system without high grade hydron ephrosis. 3. Etiology is uncertain. The appearance is not that of pyelonephritis. One possibility is recently passed right ureteral calculus. The inflammation of the right renal collecting system could be due to that, or due to infection. Recommend correlation with urinalysis. 4. Hepatic steatosis and questionable cirrhosis. 5. Status post cholecystectomy and hysterectomy. JNR POS: [facility]
[2019-01-26 16:17] LABS: Lactic Acid 13.8 mmol/L (0.5-2.2)
== END 2019-01-26 14:32 | disposition short-term general hospital (02) ==
LOC: SCSER 09:43
DX: A41.9 Sepsis, unspecified organism (principal); N39.0 Urinary tract infection, site not specified; J44.9 Chronic obstructive pulmonary disease, unspecified; M79.7 Fibromyalgia; F41.9 Anxiety disorder, unspecified; F32.9 Major depressive disorder, single episode, unspecified; F17.210 Nicotine dependence, cigarettes, uncomplicated; Z79.899 Other long term (current) drug therapy
CPT/HCPCS: 36415; 51701; 71045; 74177; 80053; 80306; 80307; 81003; 81015; 82550; 83605; 83690; 83735; 84100; 84484; 85025; 87040; 87077; 87086; 87149; 87186; 93005; 96365; 96366; 96368; 96375; A4353; C9113; J0696; J1956; J2405; J3411; J3490; Q9967

== ENCOUNTER 2019-02-18 14:10 | Emergency (ER) | payer MEDICARE ==
[2019-02-18] MEDS ORDERED: Iopamidol-370 76% 500 ML 1 ML ONE (14:27)
[2019-02-18 16:01] LABS: Hemoglobin 12.2 g/dL (12.0-16.0); Mean Corpuscular HGB CONC 33.2 g/dL (32.0-36.0); Mean Corpuscular Hemoglobin 38.7 pg (27.0-31.0); Platelet Count 333 thou/uL (130-400); RBC Distribution Width 12.9 % (11.5-14.5); Red Blood Cell (RBC) Count 3.15 mill/uL (4.20-5.40); White Blood Cell (WBC) Count 7.9 thou/uL (4.8-10.8)
[2019-02-18 16:20] LABS: ALT (SGPT) 19 U/L (8-55); AST (SGOT) 56 U/L (5-34); Albumin 4.5 g/dL (3.4-4.8); Alkaline Phosphatase 112 U/L (40-110); Anion Gap 22 mmol/L (10-20); BUN (Urea Nitrogen) 18 mg/dL (9.8-20.1); Bilirubin, Total 1.4 mg/dL (0.2-1.2); Calc. Creatinine Clearance 0 mL/min (70-130); Calcium 10.1 mg/dL (7.8-10.44); Carbon Dioxide 30 mmol/L (23-31); Chloride 95 mmol/L (98-107); Estimated GFR-MDRD 31; Globulin 4.6 g/dL (2.4-3.5); Glucose 75 mg/dL (83-110); Potassium 5.6 mmol/L (3.5-5.1); Protein, Total 9.1 g/dL (6.0-8.3); Sodium 141 mmol/L (136-145)
[2019-02-18 16:31] LABS: Band 8 % (5-11); Eosinophils 6 % (0-10); Lymphocytes 19 % (21-51); MDiff Complete? YES; Macrocytosis MODERATE=16-30 cells (100X) (0-5/hpf); Monocytes 9 % (0-10); Neutrophil 46 % (42-75); Platelet Morphology Comment Appears Adequate; Polychromasia SLIGHT = 2-3 cells (100X) (0-2/hpf); Reactive Lymphocytes 11 % (0-10); Stomatocytes SLIGHT = 2-5 cells (100X) (0-1/hpf); Target Cells SLIGHT = 2-5 cells (100X) (0-1/hpf)
--- NOTE | 2019-02-18 17:34 | CT ---
CT abdomen and pelvis with IV contrast HISTORY: Abdominal pain. COMPARISON: 01/26/2019. FINDINGS: Lung bases are clear. Inflammation of the right kidney on the previous study is no longer p resent. Solid organs are intact. Calcification throughout the arterial structures. Small splenic artery calcified aneurysms are stable. No enlarged lymph nodes or free fluid. No evidence of bowel ob struction or inflammation. Appendix not visible. Urinary bladder is unremarkable. Internal fixation left hip. Partial compression of the T11 superior endplate is stable. IMPRESSION: Chronic-type findings are stable. No acute abnormalities are demonstrated. Atherosclerosis.
[2019-02-18] MEDS ORDERED: Ondansetron PF 4 MG/2 ML Vial ONE (17:38)
[2019-02-18] MEDS ORDERED: Morphine 4 MG/ML VIAL ONE (17:38)
[2019-02-18 18:15] LABS: Bilirubin Negative (Negative); Blood, Urine Negative (Negative); Clarity Clear (Clear); Glucose, Urine (Dipstick) Normal (Negative); Leukocyte 500 Leu/uL (Negative); Nitrite Negative (Negative); Protein, Urine (Dipstick) Negative (Neg-Trace); RBC/HPF 0-3 HPF (0-3); Squamous Epithelial 0-3 HPF (0-3); Urobilinogen Normal mg/dL (Less than 2)
[2019-02-18 18:25] LABS: Bacteria/HPF 1+ HPF (None Seen)
== END 2019-02-18 18:51 | disposition home or self-care (01) ==
LOC: ERS 14:10
DX: N39.0 Urinary tract infection, site not specified (principal); N28.9 Disorder of kidney and ureter, unspecified; J44.9 Chronic obstructive pulmonary disease, unspecified; M79.7 Fibromyalgia; F41.9 Anxiety disorder, unspecified; F32.9 Major depressive disorder, single episode, unspecified; Z87.891 Personal history of nicotine dependence; Z79.899 Other long term (current) drug therapy
CPT/HCPCS: 51701; 74177; 80053; 81003; 81015; 82550; 83605; 84484; 85025; 87040; 87086; 87804; 93005; 96361; 96374; 96375; J2270; J2405; Q9967

== ENCOUNTER 2019-10-16 22:19 | Inpatient (IN) | payer MEDICARE ==
[2019-10-16] MEDS ORDERED: Morphine 2 MG/ML SYRINGE ONE (22:43)
[2019-10-16 22:56] LABS: #Eosinphils 0.2 thou/uL (0.0-0.7); #Lymphocytes 1.1 thou/uL (1.20-3.40); #Monocytes 0.8 thou/uL (0.11-0.59); #Neutrophils 4.8 thou/uL (1.40-6.50); %Basophils 0.6 % (0.0-1.0); %Eosinophils 2.5 % (0.0-10.0); %Lymphocytes 16.4 % (21.0-51.0); %Monocytes 10.9 % (0.0-10.0); %Neutrophils 69.6 % (42.0-75.0); Hemoglobin 12.6 g/dL (12.0-16.0); Mean Corpuscular HGB CONC 35.6 g/dL (32.0-36.0); Mean Corpuscular Volume 92.7 fL (78.0-98.0); Platelet Count 336 thou/uL (130-400); RBC Distribution Width 12.3 % (11.5-14.5); Red Blood Cell (RBC) Count 3.83 mill/uL (4.20-5.40); White Blood Cell (WBC) Count 6.9 thou/uL (4.8-10.8)
[2019-10-16 23:06] LABS: PTT 31.5 sec (22.9-36.1); Prothrombin Time 13.3 sec (12.0-14.7)
[2019-10-16 23:19] LABS: ALT (SGPT) 19 U/L (8-55); AST (SGOT) 34 U/L (5-34); Albumin 4.8 g/dL (3.4-4.8); Alkaline Phosphatase 143 U/L (40-110); Anion Gap 16 mmol/L (10-20); BUN (Urea Nitrogen) 15 mg/dL (9.8-20.1); Calc. Creatinine Clearance 0 mL/min (70-130); Calcium 9.8 mg/dL (7.8-10.44); Carbon Dioxide 24 mmol/L (23-31); Chloride 78 mmol/L (98-107); Estimated GFR-MDRD 38; Globulin 3.8 g/dL (2.4-3.5); Glucose 106 mg/dL (83-110); Protein, Total 8.6 g/dL (6.0-8.3)
[2019-10-16 23:22] LABS: Sodium 113 mmol/L (136-145)
[2019-10-17] MEDS ORDERED: Morphine 2 MG/ML SYRINGE ONE ×2 (00:01→01:07)
[2019-10-17 00:25] LABS: Anion Gap 16 mmol/L (10-20); BUN (Urea Nitrogen) 15 mg/dL (9.8-20.1); Calc. Creatinine Clearance 0 mL/min (70-130); Calcium 9.6 mg/dL (7.8-10.44); Carbon Dioxide 23 mmol/L (23-31); Chloride 79 mmol/L (98-107); Estimated GFR-MDRD 44; Glucose 103 mg/dL (83-110); Potassium 4.6 mmol/L (3.5-5.1)
[2019-10-17 00:30] LABS: Sodium 113 mmol/L (136-145)
--- NOTE | 2019-10-17 03:36 | HP ---
This is Mukund Diane PA-C dictating a report for Lauren Watkins MD. REQUESTING PHYSICIAN: Dr. Thomson. ATTENDING SURGEON: Dr. Watkins. CONSULTATIONS: Orthopedics, Dr. Cardoso. HISTORY OF PRESENT ILLNESS: The patient is a 74-year-old woman, who was at home watering her lawn when she tripped over the hose and fell landing on her right hip. She was unable to ambulate back to the house. Fortunately, approximately 20 minutes later her came home, found her, called 911 and she was brought to the emergency department, where she underwent evaluation and examination and was noted to have a right hip fracture. On her labs, it was noted that she had hyponatremia also. At which time, we were asked to evaluate the patient for admission and obtain Orthopedic consultation. The patient denied loss of consciousness or syncopal episode prior to her fall. She believes she just tripped. ALLERGIES: NONE. CURRENT MEDICATIONS: The patient reports that she does not have her list with her, but she does not take any blood thinners to include aspirin. PAST MEDICAL HISTORY: Gastroesophageal reflux disease, liver cirrhosis, COPD, fibromyalgia, recurrent UTIs, anxiety and depression. PAST SURGICAL HISTORY: Appendectomy, x3, hysterectomy, and left hip surgery. SOCIAL HISTORY: The patient lives at home with her spouse. She smoked 2-3 packs of cigarettes per day, but quit approximately 10 years ago. The patient denies drug use. The patient reports drinking 6-8 beers per day. REVIEW OF SYSTEMS: A 10-point review of systems is negative as otherwise stated. PHYSICAL EXAMINATION: VITAL SIGNS: Blood pressure 143/82, heart rate 76, respirations 15, oxygen saturation 94% on room air and temperature is 98.3. GENERAL: The patient is resting comfortably in bed . She is awake, alert, conversant, appropriate. Her Lukasz Coma Scale is 15. HEENT: Head is normocephalic, atraumatic. Eyes, extraocular motion intact. PERRLA bilaterally. Ears are atraumatic without discharge. Nose is atraumatic without discharge. Oropharynx is clear. NECK: Nontender. Trachea is midline with no JVD. CHEST: Scattered scant rhonchi bilaterally. HEART: Regular rate and rhythm. ABDOMEN: Soft, flat and nontender with active bowel sounds. MUSCULOSKELETAL: Pelvis is stable with tenderness to palpation to the right hip consistent with her fracture. EXTREMITIES: Neurovascularly intact x4. BACK: By report is atraumatic and nontender. LABORATORY FINDINGS: White blood cell count 6.9, hemoglobin 12.6, hematocrit 35.5, platelets 336. Sodium 113, potassium 5.0, chloride 78, CO2 of 24, BUN 15, creatinine 1.36, glucose 106, total bilirubin 1.0, AST 34, ALT 19, alkaline phosphatase 143. Serum osmolality 252. Troponin 0.016. INR 1.0. RADIOGRAPHIC REPORTS: Right hip shows a right femoral neck fracture. ASSESSMENT/PLAN: 1. Status post ground level fall. 2. Right femoral neck fracture. 3. Hyponatremia. 4. Acute pain secondary to above. PLAN: Plan will be to admit the patient to the telemetry floor. We will replace her electrolytes, keep her n.p.o., repeat her labs in the morning. We will do pulmonary toilet, gastritis, mechanical VTE prophylaxis. The evaluation, examination, laboratory, and radiographic findings will be discussed with Dr. Watkins after this dictation and Dr. Cardoso was notified of this patient also. Job ID: [id number]
[2019-10-17] MEDS ORDERED: Dextrose 50% Abboject 50 ML SYRINGE SLOW IVP PRN (04:09)
[2019-10-17] MEDS ORDERED: Cyclobenzaprine 10 MG TAB PO PRN (04:09)
[2019-10-17] MEDS ORDERED: Ondansetron PF 4 MG/2 ML Vial IVP PRN (04:09)
[2019-10-17] MEDS ORDERED: Ondansetron ODT 4 MG TAB PO PRN (04:09)
[2019-10-17] MEDS ORDERED: hydrALAZINE 20 MG/ML VIAL SLOW IVP PRN (04:09)
[2019-10-17] MEDS ORDERED: Dextrose 5% in Water 1,000 ML IV PRN (04:09)
[2019-10-17 04:11] VITALS: BMI 27.5
[2019-10-17] MEDS: Morphine 2 MG/ML VIAL SLOW IVP PRN (04:42)
[2019-10-17] MEDS: Sodium Chloride 0.9% 1,000 ML IV SCH ×3 (04:42→22:35)
[2019-10-17] MEDS: Acetaminophen 325 MG TAB PO SCH ×3 (05:44→19:01)
[2019-10-17] MEDS: Oxazepam 10 MG CAP PO SCH ×2 (05:44→15:25)
[2019-10-17 06:58] LABS: Bacteria/HPF 2+ HPF (None Seen); Bilirubin Negative (Negative); Blood, Urine 2+ (Negative); Clarity Turbid (Clear); Glucose, Urine (Dipstick) Normal (Negative); Ketone, Urine Negative (Negative); Leukocyte 500 Leu/uL (Negative); Nitrite Negative (Negative); Protein, Urine (Dipstick) 10 mg/dL (Neg-Trace); RBC/HPF 21-50 HPF (0-3); Specific Gravity, Urine 1.007 (1.002-1.036); Squamous Epithelial None Seen HPF (0-3); Urobilinogen Normal mg/dL (Less than 2); WBC/HPF 21-50 HPF (0-3); pH, Urine 6.5 (5.0-9.0)
[2019-10-17 06:59] LABS: Urine Culture Reflex Yes Yes
--- NOTE | 2019-10-17 07:40 | RAD ---
2 VIEWS RIGHT HIP: Date: 10/16/2019 COMPARISON: None. HISTORY: Fall, trauma, pain. FINDINGS: There is a fracture at the base of the right femoral head with impaction and lateral displacement. IMPRESSION: Acute fracture of the right femoral neck. POS: [facility]
[2019-10-17] MEDS ORDERED: MULTIVITAMIN PO SCH (09:00)
[2019-10-17] MEDS ORDERED: Folic Acid 1 MG TAB PO SCH (09:00)
[2019-10-17 09:16] LABS: #Lymphocytes 0.8 thou/uL (1.20-3.40); #Monocytes 0.6 thou/uL (0.11-0.59); #Neutrophils 5.9 thou/uL (1.40-6.50); %Basophils 0.1 % (0.0-1.0); %Eosinophils 0.2 % (0.0-10.0); %Lymphocytes 10.8 % (21.0-51.0); %Monocytes 8.6 % (0.0-10.0); %Neutrophils 80.3 % (42.0-75.0); Hemoglobin 11.2 g/dL (12.0-16.0); Mean Corpuscular HGB CONC 34.2 g/dL (32.0-36.0); Mean Corpuscular Hemoglobin 32.7 pg (27.0-31.0); Mean Corpuscular Volume 95.3 fL (78.0-98.0); Mean Platelet Volume 5.9 fL (7.4-10.4); Platelet Count 263 thou/uL (130-400); RBC Distribution Width 12.4 % (11.5-14.5); Red Blood Cell (RBC) Count 3.43 mill/uL (4.20-5.40); White Blood Cell (WBC) Count 7.3 thou/uL (4.8-10.8)
[2019-10-17 09:19] LABS: Anion Gap 13 mmol/L (10-20); BUN (Urea Nitrogen) 14 mg/dL (9.8-20.1); Calc. Creatinine Clearance 56 mL/min (70-130); Carbon Dioxide 22 mmol/L (23-31); Chloride 84 mmol/L (98-107); Estimated GFR-MDRD 56; Glucose 116 mg/dL (83-110); Magnesium 1.5 mg/dL (1.6-2.6); Phosphorus 3.1 mg/dL (2.3-4.7); Potassium 4.4 mmol/L (3.5-5.1)
[2019-10-17 09:27] LABS: Sodium 115 mmol/L (136-145)
--- NOTE | 2019-10-17 09:55 | CON ---
DATE OF CONSULTATION: CHIEF COMPLAINT: Right hip pain. HISTORY OF PRESENT ILLNESS: Ms. Stanley is a 74-year-old female, who was out in her yard yesterday when she tripped over a hose. She was not using her walker at that time. She fell onto her right side. She was unable to ambulate. She had immediate pain in the hip. EMS came and brought her to the Emergency Department, where she has been found to have a right femoral neck fracture. The patient has been admitted to the hospital by the General Surgery Trauma Service. She has hyponatremia with a sodium of 113. This is slowly being corrected. She is currently comfortable. She has received pain medications. ALLERGIES: NONE. MEDICATIONS: Unknown. PAST MEDICAL HISTORY: GERD, COPD, fibromyalgia, UTI, anxiety, depression, history of liver cirrhosis. PAST SURGICAL HISTORY: Appendectomy, section x3, hysterectomy. She has had left hip surgery for fracture, she reports. SOCIAL HISTORY: The patient drinks alcohol daily. She reports that she drinks 6 to 8 beers per day. She has a remote history of cigarettes, but no active smoking. No drug use. REVIEW OF SYSTEMS: Positive for right hip pain only. Otherwise negative 10-point review of systems. PHYSICAL EXAMINATION: VITAL SIGNS: Temperature is 97.4, pulse is 76, respiratory rate is 20, oxygen saturations 96%, blood pressure 117/61. GENERAL: She is alert, lying supine, no apparent distress. HEENT: Normocephalic and atraumatic. RESPIRATORY: Breathing comfortably. CARDIOVASCULAR: Peripheral pulses palpable and regular. MUSCULOSKELETAL: The patient's right lower extremity is shortened and externally rotated. She has intact skin. There is some swelling around her hip and thigh. She is able to flex and extend the foot and ankle. She has palpable dorsalis pedis pulse. Sensation is intact distally. Upper extremities are atraumatic. IMAGING STUDIES: X-rays of the pelvis and hip demonstrated displaced right femoral neck fracture, which is acute. IMPRESSION: Elderly female with right femoral neck fracture, hyponatremia. PLAN: The patient will have ongoing medical optimization prior to surgery. She will need an additional day to have her hyponatremia corrected. We will plan for surgery tomorrow. Surgery will involve a bipolar hemiarthroplasty with a goal to have early mobilization and pain relief. Reviewed risks and benefits with her. She wants to proceed when possible. She will be n.p.o. at midnight tonight. She will have antibiotics on-call to the operating room. Job ID: [id number]
[2019-10-17] MEDS: Sodium Chloride 1 GM TAB PO SCH ×2 (09:58→18:21)
[2019-10-17] MEDS: Multivit, Therapeutic 1 TAB PO SCH (09:58)
[2019-10-17] MEDS: Folic Acid 1 MG TAB PO SCH (09:58)
[2019-10-17] MEDS: Thiamine 100 MG TAB PO SCH (09:58)
[2019-10-17] MEDS: Nicotine 7 MG PATCH TD SCH (11:27)
[2019-10-17 13:42] LABS: Anion Gap 15 mmol/L (10-20); BUN (Urea Nitrogen) 14 mg/dL (9.8-20.1); Calc. Creatinine Clearance 53 mL/min (70-130); Calcium 9.1 mg/dL (7.8-10.44); Carbon Dioxide 21 mmol/L (23-31); Chloride 88 mmol/L (98-107); Estimated GFR-MDRD 53; Glucose 127 mg/dL (83-110); Potassium 4.5 mmol/L (3.5-5.1)
[2019-10-17 13:48] LABS: Sodium 119 mmol/L (136-145)
[2019-10-17] MEDS: Morphine 4 MG/ML VIAL SLOW IVP PRN (14:24)
--- NOTE | 2019-10-17 16:37 | CT ---
EXAM: BRAIN CT WITHOUT IV CONTRAST: 10/17/19 HISTORY: Injury from a fall, hyponatremia, hip fracture, contusion. There is some scattered atrophy and chronic white matter ischemic change. No focal mass or midline sh ift. No intra or extra-axial hemorrhage. Sinuses and mastoids are clear of acute process. IMPRESSION: No significant acute intracranial process. POS: [facility]
--- NOTE | 2019-10-17 18:11 | PRG ---
DATE OF SERVICE: 10/17/2019 SUBJECTIVE: Ms. Palacios is a 74-year-old female, went to the ER yesterday after an incidental fall at home. The patient sustained a right femoral neck fracture. She also was in alcohol intoxication upon arrival. During the course of stay in the hospital, the patient was found out to have hyponatremia, which was the cause of her delay of hip surgery sodium level 120. Dr. Cardoso decided to take the patient to the OR tomorrow. While monitoring sodium level during the day, the patient's sodium improved increased from 113 to 119 and 1300 hours. The patient remained stable, pain is well controlled. She tolerated her diet. She voiced no concern. However, Dr. Watkins wants the patient to have a head CT scan ordered to rule out any brain lesion which caused hyponatremia in the patient. OBJECTIVE: GENERAL: Currently, the patient is lying in bed comfortable with no acute respiratory distress. She is alert and awake. GCS 15. VITAL SIGNS: Temperature 97.4, heart rate 76, respiratory rate 20, O2 saturation 96 on room air, and blood pressure 117/61. LUNGS: Clear bilaterally. HEART: Regular rate and rhythm. ABDOMEN: Soft and nondistended. EXTREMITIES: Neurovascularly intact x4. NEUROLOGIC: No focal neurologic deficits. ASSESSMENT: 1. Status post ground level fall. 2. Right femoral neck fracture. 3. Hyponatremia. 4. Alcohol intoxication, improved, with alcohol abuse. PLAN: Continue supportive care. Continue pain control. Continue alcohol withdrawal prophylaxis. Continue normal saline IV fluid and salt tablets for hyponatremia treatment. We will recheck sodium level tomorrow. N.p.o. at midnight. Dr. Cardoso will take the patient to the OR tomorrow. Dr. Watkins seen and evaluated the patient this morning. Job ID: [id number]
[2019-10-17] MEDS: Pantoprazole 40 MG GRANULES PACKET PO SCH (18:21)
[2019-10-17] MEDS: Famotidine 20 MG TAB PO SCH (18:21)
[2019-10-17] MEDS ORDERED: Dicyclomine 10 MG CAP PO PRN (20:58)
[2019-10-17] MEDS ORDERED: Hydrocortisone Sod Succ/PF 100 mg/2 ml Vial IVP SCH (22:15)
[2019-10-17] MEDS: Propranolol 10 MG TAB PO SCH (22:28)
[2019-10-17] MEDS: Gabapentin 300 MG CAP PO SCH (22:35)
[2019-10-17] MEDS: Sulfameth/Trimethoprim DS 800-160mg TAB PO SCH (22:35)
[2019-10-17] MEDS: Mirtazapine 15 MG Soltab PO SCH (22:35)
[2019-10-18] MEDS: Oxazepam 10 MG CAP PO SCH ×4 (01:27→22:45)
[2019-10-18] MEDS: Acetaminophen 325 MG TAB PO SCH ×4 (01:35→17:23)
--- NOTE | 2019-10-18 01:52 | PRG ---
DATE OF SERVICE: 10/18/2019 SUBJECTIVE: The patient is currently on the stroke floor. She is status post a ground level fall, in which she sustained a right femoral neck fracture. She also is being observed as she came in with a critically low sodium that has improved throughout the day. Due to her low sodium, she was unable to undergo her operative procedure today. Her sodium is being replaced and she is on a free water restriction. She reports her pain is controlled. She tolerated a diet today. She will be n.p.o. after midnight. We will repeat her labs in the morning and she, by report, should be able to go to the operating room if her sodium is above 120 and it is currently at 119. PHYSICAL EXAMINATION: VITAL SIGNS: Stable. The patient is afebrile, though she has had 2 systolic blood pressures less than 100. GENERAL: The patient is resting comfortably in bed. She is asleep at the time of my visit. She woke up briefly for me and denied any pain. LUNGS: Clear to auscultation bilaterally. HEART: Regular rate and rhythm. ABDOMEN: Soft, nontender with active bowel sounds. EXTREMITIES: Neurovascularly intact x4. ASSESSMENT/PLAN: 1. Status post ground level fall. 2. Right femoral neck fracture, awaiting surgery. 3. Hyponatremia, improving. 4. History of alcohol abuse. PLAN: Will be to continue supportive care. Postoperatively, we will encourage physical and occupational therapy and begin discussing placement at that time. Job ID: [id number]
[2019-10-18 04:41] LABS: #Lymphocytes 0.4 thou/uL (1.20-3.40); #Monocytes 0.1 thou/uL (0.11-0.59); #Neutrophils 5.2 thou/uL (1.40-6.50); %Eosinophils 0.1 % (0.0-10.0); %Lymphocytes 7.2 % (21.0-51.0); %Monocytes 2.2 % (0.0-10.0); %Neutrophils 90.6 % (42.0-75.0); Hemoglobin 10.4 g/dL (12.0-16.0); Mean Corpuscular HGB CONC 34.4 g/dL (32.0-36.0); Mean Corpuscular Hemoglobin 32.7 pg (27.0-31.0); Mean Corpuscular Volume 94.9 fL (78.0-98.0); Mean Platelet Volume 5.9 fL (7.4-10.4); Platelet Count 206 thou/uL (130-400); RBC Distribution Width 12.4 % (11.5-14.5); White Blood Cell (WBC) Count 5.8 thou/uL (4.8-10.8)
[2019-10-18 05:08] LABS: Anion Gap 12 mmol/L (10-20); BUN (Urea Nitrogen) 12 mg/dL (9.8-20.1); Calc. Creatinine Clearance 57 mL/min (70-130); Calcium 8.7 mg/dL (7.8-10.44); Carbon Dioxide 20 mmol/L (23-31); Chloride 95 mmol/L (98-107); Estimated GFR-MDRD 57; Glucose 149 mg/dL (83-110); Magnesium 1.6 mg/dL (1.6-2.6); Phosphorus 2.2 mg/dL (2.3-4.7); Potassium 4.6 mmol/L (3.5-5.1); Sodium 122 mmol/L (136-145)
[2019-10-18] MEDS: Hydrocortisone Sod Succ/PF 100 mg/2 ml Vial IVP SCH ×3 (06:20→21:40)
[2019-10-18] MEDS ORDERED: Magnesium 2 GM/50 ML 2 GM in Premix Bag 1 BAG IVPB SCH ×2 (07:00→11:00)
[2019-10-18] MEDS ORDERED: Sodium Phosphate 30 MMOL in Sodium Chloride 0.9% 250 ML 250 ML IVPB SCH (07:00)
[2019-10-18] MEDS ORDERED: Phenylephrine 10 MG/ML VIAL ONE (07:58)
[2019-10-18] MEDS ORDERED: Fentanyl 100 MCG/2 ML VIAL ONE (07:58)
[2019-10-18] MEDS ORDERED: CEFAZOLIN 2 GM in Premix Bag 1 BAG IVPB SCH (08:00)
[2019-10-18] MEDS ORDERED: Lisinopril 5 MG TAB PO SCH (09:00)
[2019-10-18] MEDS ORDERED: Spironolactone 25 MG TAB PO SCH (09:00)
[2019-10-18] MEDS ORDERED: Furosemide 40 MG TAB PO SCH (09:00)
--- NOTE | 2019-10-18 09:00 | HP ---
ADDENDUM: CHIEF COMPLAINT: Right hip pain. HISTORY OF PRESENT ILLNESS: Ms. Palacios is a 74-year-old woman with a past medical history significant for liver disease due to alcohol abuse. She was working in her garden and reports that she tripped over a hose and fell onto her right side with immediate pain in her right hip. She was unable to ambulate or get help, but her arrived shortly thereafter and called EMS and she was brought to the hospital, where she was found to have a right hip fracture. She has a previously repaired left hip fracture after a similar fall. She denies any lightheadedness or syncopal episode, but states that she simply misjudged the distance to where she was going and was not using her walker as she normally does when she is at home. She does admit to worsening balance, concentration, and mental acuity, which she states has been somewhat chronic, but has not had any recent changes in her mental status. PAST MEDICAL HISTORY: Ongoing alcohol abuse. She drinks 6 to 8 beers a day. She does have a history of liver disease, but denies any history of ascites or variceal bleeding. She states that she had a gastric ulcer many years in the past, which was treated endoscopically by Dr. Marcos of Gastroenterology. She states that she has high blood pressure, but denies any history of heart attack or stroke. PAST SURGICAL HISTORY: Left ORIF. SOCIAL HISTORY: Former smoker, ongoing alcohol abuse. No history of DTs or shakes, but does not abstain from alcohol for any prolonged period of time. No known history of kidney disease or electrolyte abnormalities in the past. Imaging reveals right hip fracture with no other traumatic injury seen. LABORATORY DATA: Laboratory work reveals significant hyponatremia with a sodium of 113 and decreased chloride as well. Her glucose is not significantly elevated and her renal function is normal. PHYSICAL EXAMINATION: VITAL SIGNS: Normal. GENERAL: Reveals a pleasant elderly woman, in no acute distress. Her speech is somewhat slow, but it is clear and easy to understand and she is able to give fairly good history, although she does not know the names of any of her medications. She is unsure whether she is taking any diuretics, but states that her is going to bring a list later. HEENT: Unremarkable. She is normocephalic, atraumatic. No external signs of head trauma and she denies any loss of consciousness or blow to the head. NECK: Supple and nontender. HEART: Regular in its rate and rhythm without murmurs, rubs, or gallops. LUNGS: Clear to auscultation bilaterally. SKIN: Normal. She is not jaundiced or icteric. No rash. ABDOMEN: Soft, nontender, nondistended without fluid wave or caput medusa. No palpable hernias or masses. No tenderness to palpation in the right upper quadrant. No obvious hepatomegaly. EXTREMITIES: Warm and well perfused with normal pedal pulses. Her right leg is externally rotated and foreshortened consistent with her hip fracture. ASSESSMENT: 1. Right hip fracture due to fall, awaiting repair by Orthopedics. 2. Severe hyponatremia. I would classify this as mildly symptomatic with her recent falls and decreased mental acuity and balance. This is likely multifactorial, although the etiology is not entirely clear. She does drink a fair amount of beer, but states that she eats a normal healthy diet otherwise. She does not have evidence of advanced cirrhosis on exam and her LFTs are normal. I checked a cortisol and TSH which are both in normal limits and we will obtain a head CT, although I think without focal neurologic findings, a space-occupying mass is unlikely. She was started on salt pills last night and had a mild increase in her sodium from 113 to 115. We are going to recheck this and put her on a low hypertonic saline drip if she is not appropriately correcting on salt tablets alone. Once her sodium is above 120, she will undergo ORIF of her right hip fracture. She will require outpatient followup and management of her hyponatremia and ongoing alcohol abuse. She will be placed on alcohol withdrawal prophylaxis in the hospital. Job ID: [id number]
--- NOTE | 2019-10-18 09:49 | OP ---
DATE OF PROCEDURE: 10/18/2019 PROCEDURE PERFORMED: Right hip hemiarthroplasty. PREOPERATIVE DIAGNOSIS: Displaced right femoral neck fracture. POSTOPERATIVE DIAGNOSIS: Displaced right femoral neck fracture. COMPLICATIONS: None. ESTIMATED BLOOD LOSS: 200 mL. INTERNIST: Paloma Gutierrez PA-C IMPLANTS: DePuy basic press-fit stem size 7 with a +5 femoral head and a 45 mm bipolar shell. DESCRIPTION OF PROCEDURE: Lizeth was identified in the preoperative holding area. Her correct extremity was marked. She was carried to the operating room. She was positioned supine. General anesthesia was induced. A multidisciplinary time-out was performed. The patient was given intravenous antibiotics. She was converted to the lateral decubitus position. At this point, we began the procedure with a posterior approach to the hip. We dissected down through the subcutaneous tissue to the fascia, which was opened. We exposed the underlying short external rotators of the hip. These were subperiosteally divided from the proximal femur. We then performed a capsulotomy. At this point, we removed the broken femoral head. We performed a new osteotomy of the femoral neck. We then proceeded to remove bony fragments from the acetabulum. At this point, we prepared the femoral canal. We entered the canal and lateralized. We then used our appropriate reamers up to a size 7. We then broached from a size 3 to a size 7. Our size 7 broach was a good stable fit. We trialed off this. We proceeded to reduce the hip. We had good range of motion and stability with a +5 head length. At this point, we removed our trial components and thoroughly irrigated with copious lavage. We then implanted our final hip components. Again, the hip was reduced. We checked stability once more. We then closed the short external rotators and capsule through drill holes with #5 Ethibond suture. We then performed a layered closure and a sterile dressing was placed. The patient was taken to the recovery room in good condition. Job ID: [id number]
[2019-10-18] MEDS: Morphine 2 MG/ML VIAL SLOW IVP PRN (10:59)
--- NOTE | 2019-10-18 11:00 | RAD ---
AP PELVIS ONE VIEW: HISTORY: Status post right hemiarthroplasty. FINDINGS: Recent right total hemiarthroplasty changes. Three internal fixation screws stabilize the left femora l neck. IMPRESSION: Unremarkable right hip replacement without periprosthetic fracture or dislocation or other acute proc ess. POS: [facility]
--- NOTE | 2019-10-18 11:02 | RAD ---
RIGHT HIP ONE VIEW: HISTORY: Status post hemiarthroplasty. FINDINGS: Cross-table lateral view demonstrates no dislocation or periprosthetic fracture. IMPRESSION: Recent total hip replacement without periprosthetic fracture or dislocation. POS: [facility]
[2019-10-18] MEDS ORDERED: Lidocaine 1% PF 5 ML VIAL ONE (11:41)
[2019-10-18] MEDS ORDERED: PHENYLEPHRINE-NS 100 MCG/ML 10 ML SYRINGE ONE (11:41)
[2019-10-18] MEDS ORDERED: Glycopyrrolate 0.2 MG/ML 5 ML SYRINGE ONE (11:41)
[2019-10-18] MEDS ORDERED: Ondansetron PF 4 MG/2 ML Vial ONE (11:41)
[2019-10-18] MEDS ORDERED: Dexamethasone 20 MG/5 ML VIAL ONE (11:41)
[2019-10-18] MEDS ORDERED: PROPOFOL 200 MG/20 ML VIAL ONE (11:41)
[2019-10-18] MEDS ORDERED: Rocuronium Bromide 10 MG/ML (10ML VIAL) ONE (11:41)
--- NOTE | 2019-10-18 12:00 | PRG ---
DATE OF SERVICE: 10/18/2019 SUBJECTIVE: Ms. Palacios is a 74-year-old female, status post fall while alcohol intoxication. The patient sustained right hip fracture. She also suffered from hyponatremia. Yesterday, sodium is lower than 120 in which we had to fix her hyponatremia before she can go to the OR per Anesthesia. This morning, the patient's sodium level is 122. She had been put on n.p.o. at midnight. Dr. Cardoso will take the patient to the OR this morning for right hip fracture fixation. No overnight events. Vital signs have been stable. Her urine is adequate. OBJECTIVE: GENERAL: Currently, the patient is lying in bed comfortable with no acute respiratory distress. VITAL SIGNS: Blood pressure is 140 systolic, heart rate 86, and O2 saturations 96% on room air. LUNGS: Clear bilaterally. HEART: Regular rate and rhythm. ABDOMEN: Soft and nondistended. EXTREMITIES: Neurovascularly intact x4. NEUROLOGIC: No focal neurology deficits. LABORATORY DATA: Hemoglobin 10.4. Sodium 122, potassium 4.6, creatinine 0.86, and magnesium 1.6. ASSESSMENT: 1. Status post mechanical fall while alcohol intoxication. 2. Right hip fracture. 3. Hyponatremia and hypomagnesium. 4. Urinary tract infection. 5. Alcoholism, alcohol abuse. PLAN: The patient will be going to the OR today for right hip fracture fixation. Continue normal saline postop for hyponatremia fixation and salt tablets for hyponatremia. The patient will have 2 g of magnesium for hypomagnesemia. Continue Bactrim for UTI. Continue alcohol withdrawal prophylaxis. Postop, the patient will need to work with physical therapy and occupational therapy. Anticipate placement in rehabilitation facility. Job ID: [id number]
[2019-10-18] MEDS: Propranolol 10 MG TAB PO SCH ×4 (12:56→22:50)
[2019-10-18] MEDS: Sodium Chloride 1 GM TAB PO SCH (12:56)
[2019-10-18] MEDS: Nicotine 7 MG PATCH TD SCH (12:56)
[2019-10-18] MEDS: Sodium Chloride 0.9% 1,000 ML IV SCH (12:57)
[2019-10-18] MEDS: Gabapentin 300 MG CAP PO SCH ×2 (13:01→21:41)
[2019-10-18] MEDS: Famotidine 20 MG TAB PO SCH (13:01)
[2019-10-18] MEDS: Folic Acid 1 MG TAB PO SCH (13:01)
[2019-10-18] MEDS: Sulfameth/Trimethoprim DS 800-160mg TAB PO SCH ×2 (13:02→21:41)
[2019-10-18] MEDS: Multivit, Therapeutic 1 TAB PO SCH (13:02)
[2019-10-18] MEDS: Pantoprazole 40 MG GRANULES PACKET PO SCH (13:02)
[2019-10-18] MEDS: Thiamine 100 MG TAB PO SCH (13:02)
[2019-10-18] MEDS: CEFAZOLIN 2 GM in Premix Bag 1 BAG IVPB SCH ×2 (15:16→21:42)
[2019-10-18] MEDS: Morphine 4 MG/ML VIAL SLOW IVP PRN (15:19)
[2019-10-18] MEDS ORDERED: traMADol HCl 50 MG TAB PO PRN ×2 (21:06)
[2019-10-18] MEDS: Mirtazapine 15 MG Soltab PO SCH (22:45)
[2019-10-18] MEDS ORDERED: Hydrocortisone Sod Succ/PF 100 mg/2 ml Vial IVP SCH (23:59)
[2019-10-19] MEDS: Acetaminophen 325 MG TAB PO SCH ×4 (00:04→17:07)
--- NOTE | 2019-10-19 00:58 | PRG ---
DATE OF SERVICE: 10/18/2019 SUBJECTIVE: Patient was seen this evening during rounds. She was sitting up in bed with no signs of acute distress. She reported her pain is well controlled. She is now postop day 0, status post right hip hemiarthroplasty. Postoperatively, the patient has had some hypotension with systolic blood pressures in 80s to 90s. Mentation has been at baseline. Urinary output has been adequate. OBJECTIVE: VITAL SIGNS: Temperature 97.4, pulse 76, respirations 16, oxygen saturation 96% on room air, and blood pressure 86/60. GENERAL: Well-appearing elderly female, sitting up in bed with no signs of acute distress. PULMONARY: Equal chest rise and fall. No signs of acute respiratory distress. CARDIAC: Regular rate and rhythm. GI: Abdomen is soft, nontender, and nondistended. EXTREMITIES: 2+ pulses in all extremities. Gross motor and sensation intact. NEUROLOGIC: GCS is 15. ASSESSMENT: 1. Status post mechanical fall from standing. 2. Right femoral neck fracture, status post repair. 3. Acute on chronic hyponatremia, improving. 4. Urinary tract infection, uncomplicated. 5. Acute adrenal insufficiency. 6. History of gastroesophageal reflux disease, cirrhosis, chronic obstructive pulmonary disease, fibromyalgia, frequent urinary tract infections, anxiety, depression, and alcohol abuse. PLAN: Continue current regular diet. Continue normal saline at 75 an hour. Monitor urinary output. Increase hydrocortisone to 50 mg q.6 hours IV for acute adrenal insufficiency. We will ask nursing to redo the patient's med rec as she reports she does not think she takes medications such as Lasix, spironolactone, and lisinopril. Start physical and occupational therapy tomorrow. Patient will likely need placement at an acute rehab facility. Job ID: [id number]
[2019-10-19] MEDS: Hydrocortisone Sod Succ/PF 100 mg/2 ml Vial IVP SCH ×4 (03:38→21:30)
[2019-10-19] MEDS: Sodium Chloride 0.9% 1,000 ML IV SCH ×2 (03:39→03:40)
[2019-10-19] MEDS ORDERED: HYDROmorphone 2 MG/ML VIAL SLOW IVP PRN (05:18)
[2019-10-19] MEDS ORDERED: Ondansetron HCl/PF 4 MG/2 ML Vial IVP PRN (05:18)
[2019-10-19] MEDS ORDERED: Promethazine HCl 25 MG/ML VIAL SLOW IVP PRN (05:18)
[2019-10-19] MEDS ORDERED: Promethazine HCl 25 MG/ML VIAL IM PRN (05:18)
[2019-10-19] MEDS ORDERED: PACU-Morphine 4MG/ML VIAL SLOW IVP PRN (05:18)
[2019-10-19 05:43] LABS: Band 23 % (5-11); Hemoglobin 8.9 g/dL (12.0-16.0); Lymphocytes 10 % (21-51); MDiff Complete? YES; Mean Corpuscular HGB CONC 32.7 g/dL (32.0-36.0); Mean Corpuscular Volume 97.8 fL (78.0-98.0); Mean Platelet Volume 6.6 fL (7.4-10.4); Monocytes 5 % (0-10); Neutrophil 62 % (42-75); Platelet Count 260 thou/uL (130-400); Platelet Morphology Comment Appears Adequate; RBC Distribution Width 12.8 % (11.5-14.5); Red Blood Cell (RBC) Count 2.77 mill/uL (4.20-5.40); White Blood Cell (WBC) Count 9.5 thou/uL (4.8-10.8)
[2019-10-19 05:53] LABS: Anion Gap 12 mmol/L (10-20); BUN (Urea Nitrogen) 12 mg/dL (9.8-20.1); Calc. Creatinine Clearance 48 mL/min (70-130); Calcium 8.2 mg/dL (7.8-10.44); Carbon Dioxide 20 mmol/L (23-31); Chloride 99 mmol/L (98-107); Estimated GFR-MDRD 45; Glucose 140 mg/dL (83-110); Magnesium 2.2 mg/dL (1.6-2.6); Phosphorus 3.8 mg/dL (2.3-4.7); Potassium 3.9 mmol/L (3.5-5.1); Sodium 127 mmol/L (136-145)
[2019-10-19] MEDS: Oxazepam 10 MG CAP PO SCH ×3 (06:05→21:39)
[2019-10-19] MEDS: Senokot S 8.6-50 MG TAB PO SCH ×2 (08:46→21:31)
[2019-10-19] MEDS: Thiamine 100 MG TAB PO SCH (08:46)
[2019-10-19] MEDS: Gabapentin 300 MG CAP PO SCH ×2 (08:46→23:44)
[2019-10-19] MEDS: Sulfameth/Trimethoprim DS 800-160mg TAB PO SCH ×2 (08:46→21:31)
[2019-10-19] MEDS: Enoxaparin Sodium 40 MG/0.4 ML SYRINGE SC SCH (08:46)
[2019-10-19] MEDS: Pantoprazole 40 MG GRANULES PACKET PO SCH (08:47)
[2019-10-19] MEDS: Folic Acid 1 MG TAB PO SCH (08:47)
[2019-10-19] MEDS: Multivit, Therapeutic 1 TAB PO SCH (08:47)
[2019-10-19] MEDS: Polyethylene Glycol 3350 17 GM Packet PO SCH (08:48)
[2019-10-19] MEDS: Nicotine 7 MG PATCH TD SCH (08:48)
[2019-10-19] MEDS: Propranolol 10 MG TAB PO SCH ×3 (08:48→21:38)
[2019-10-19] MEDS: Famotidine 20 MG TAB PO SCH (08:49)
--- NOTE | 2019-10-19 19:42 | PRG ---
DATE OF SERVICE: 10/19/2019 SUBJECTIVE: Ms. Palacios is a 74-year-old female, status post fall why alcohol intoxication. The patient sustained right hip fracture. She also suffered from hyponatremia. Her hyponatremia improved. The patient underwent right hip fixation yesterday. Postop, the patient doing well. Pain is controlled. She is able to work physical therapy. She is tolerating her regular diet. Her urine is adequate. OBJECTIVE: GENERAL: Currently, the patient lying in bed with no acute respiratory distress. VITAL SIGNS: Stable. LUNGS: Clear bilaterally. HEART: Regular rate and rhythm. ABDOMEN: Soft, nondistended. EXTREMITIES: Neurovascularly intact x4. NEUROLOGIC: No focal neurology deficits. Postop dressing, clean and dry. ASSESSMENT: 1. Status post mechanical fall while alcohol intoxication. 2. Right hip fracture, status post fixation. 3. Hyponatremia and hypomagnesium improved. 4. Urinary tract infection on admission, improved. 5. Alcoholism. PLAN: Continue supportive care. Continue pain control. Initiate DVT prophylaxis. Today continue gastritis prophylaxis. Pulmonary toilet. Continue working with Physical Therapy. Anticipate placement in rehabilitation facility tomorrow. Job ID: [id number]
[2019-10-19] MEDS: Mirtazapine 15 MG Soltab PO SCH (21:30)
--- NOTE | 2019-10-19 23:07 | PRG ---
DATE OF SERVICE: 10/19/2019 SUBJECTIVE: Patient was seen this evening during rounds. She was lying in bed. Nursing reported the patient was more sleepy today. Upon my evaluation, she was easily arousable and answered all questions appropriately. She was alert and oriented x3. She denies physical therapy and 2 of her meals because she was upset hospital administration would not allow her to come visit her. I did discuss the importance of physical therapy and diet and order for her to return home to her . She reported that she will try to work with them more tomorrow and reported she felt fine at the time of my evaluation. OBJECTIVE: VITAL SIGNS: Temperature 97.4, pulse 70, respirations 17, oxygen saturation 93% on room air, blood pressure 94/60. GENERAL: Well-appearing elderly female, lying in bed with no signs of acute distress. PULMONARY: Equal chest rise and fall. Clear breath sounds bilaterally. No signs of acute respiratory distress. CARDIAC: Regular rate and rhythm. EXTREMITIES: 2+ pulses in all extremities. Gross motor and sensation intact. NEUROLOGIC: GCS are 15. LABORATORY FINDINGS: There are no new laboratory findings to discuss. ASSESSMENT: 1. Status post mechanical fall from standing. 2. Right femoral neck fracture, status post repair. 3. Acute on chronic hyponatremia, improving. 4. Urinary tract infection, currently being treated. 5. Acute adrenal insufficiency, stable. 6. Acute kidney injury. 7. History of gastroesophageal reflux disease, cirrhosis, chronic obstructive pulmonary disease, fibromyalgia, frequent urinary tract infections, anxiety, depression, and alcohol abuse. PLAN: Continue current diet and pain regimen. We will discontinue the gabapentin in case it is making her too sleepy. We will hold her Remeron and see her act this evening, but we will give it she show signs of acute alcohol withdrawals. Continue to monitor urinary output. The patient is pending placement at acute rehab facility. Job ID: [id number]
[2019-10-20] MEDS: Acetaminophen 325 MG TAB PO SCH ×5 (00:43→23:06)
[2019-10-20] MEDS: Hydrocortisone Sod Succ/PF 100 mg/2 ml Vial IVP SCH ×4 (04:59→23:08)
[2019-10-20] MEDS: Oxazepam 10 MG CAP PO SCH ×3 (05:00→23:08)
[2019-10-20 06:10] LABS: #Lymphocytes 0.9 thou/uL (1.20-3.40); #Monocytes 0.8 thou/uL (0.11-0.59); #Neutrophils 6.6 thou/uL (1.40-6.50); %Basophils 0.2 % (0.0-1.0); %Eosinophils 0.2 % (0.0-10.0); %Lymphocytes 11.1 % (21.0-51.0); %Monocytes 9.1 % (0.0-10.0); %Neutrophils 79.4 % (42.0-75.0); Hemoglobin 8.2 g/dL (12.0-16.0); Mean Corpuscular Hemoglobin 33.3 pg (27.0-31.0); Mean Corpuscular Volume 97.7 fL (78.0-98.0); Mean Platelet Volume 6.6 fL (7.4-10.4); Platelet Count 234 thou/uL (130-400); RBC Distribution Width 12.9 % (11.5-14.5); Red Blood Cell (RBC) Count 2.45 mill/uL (4.20-5.40); White Blood Cell (WBC) Count 8.3 thou/uL (4.8-10.8)
[2019-10-20 06:29] LABS: Anion Gap 12 mmol/L (10-20); BUN (Urea Nitrogen) 15 mg/dL (9.8-20.1); Calc. Creatinine Clearance 46 mL/min (70-130); Calcium 8.5 mg/dL (7.8-10.44); Carbon Dioxide 21 mmol/L (23-31); Chloride 98 mmol/L (98-107); Estimated GFR-MDRD 43; Glucose 110 mg/dL (83-110); Phosphorus 3.7 mg/dL (2.3-4.7); Potassium 4.1 mmol/L (3.5-5.1); Sodium 127 mmol/L (136-145)
[2019-10-20] MEDS: Famotidine 20 MG TAB PO SCH (08:15)
[2019-10-20] MEDS: Polyethylene Glycol 3350 17 GM Packet PO SCH (08:15)
[2019-10-20] MEDS: Enoxaparin Sodium 40 MG/0.4 ML SYRINGE SC SCH (08:16)
[2019-10-20] MEDS: Thiamine 100 MG TAB PO SCH (08:16)
[2019-10-20] MEDS: Sulfameth/Trimethoprim DS 800-160mg TAB PO SCH ×2 (08:16→23:08)
[2019-10-20] MEDS: Senokot S 8.6-50 MG TAB PO SCH ×2 (08:16→23:29)
[2019-10-20] MEDS: Propranolol 10 MG TAB PO SCH ×3 (08:16→23:29)
[2019-10-20] MEDS: Multivit, Therapeutic 1 TAB PO SCH (08:16)
[2019-10-20] MEDS: Folic Acid 1 MG TAB PO SCH (08:16)
[2019-10-20] MEDS: Nicotine 7 MG PATCH TD SCH (08:21)
[2019-10-20] MEDS: Sodium Chloride 1 GM TAB PO SCH ×2 (10:06→23:09)
[2019-10-20] MEDS ORDERED: Succinylcholine Chloride 20 MG/ML 10 ml SYRINGE FS ONE (12:57)
[2019-10-20] MEDS ORDERED: PROPOFOL 200 MG/20 ML VIAL ONE (12:57)
--- NOTE | 2019-10-20 14:35 | PRG ---
DATE OF SERVICE: 10/20/2019 SUBJECTIVE: The patient was seen during morning rounds postop day #2, status post right hip hemiarthroplasty. The patient had no overnight events. Overnight, the patient had some mild hypotension, in which her Remeron and Serax were held. The patient did not get out of the bed yesterday. The patient's appetite has been decreased. This morning, the patient had walked already with physical therapy 50 feet. Appetite has increased this morning. The patient's pain is controlled at this time. OBJECTIVE: VITAL SIGNS: Blood pressure 110/75, temperature 97.4, pulse 62, respirations 14, and SpO2 of 94% on room air. GENERAL: Elderly female, lying in bed, in no acute distress. RESPIRATORY: Respirations are even and nonlabored, no distress. CARDIAC: Regular rate, regular rhythm. EXTREMITIES: Neurovascularly intact x4. NEUROLOGIC: No focal deficits. GCS 15. LABORATORY DATA: WBC 8.3, RBC 2.45, hemoglobin 8.2, hematocrit 24.0, platelets 234. Sodium 127, potassium 4.1, chloride 98, carbon dioxide 21, BUN 15, creatinine 1.24, estimated GFR 43, glucose 110, calcium 8.5, phosphorus 3.7, magnesium 2.0. DIAGNOSTIC DATA: There are no new diagnostics to review today. ASSESSMENT: 1. Status post mechanical fall with alcohol intoxication. 2. Right hip fracture, status post repair. 3. Hyponatremia. 4. Hypomagnesemia, mild, improved. 5. Urinary tract infection on admission. 6. Acute kidney injury. 7. History of alcohol abuse, gastroesophageal reflux disease, cirrhosis, chronic obstructive pulmonary disease, fibromyalgia, urinary tract infections, anxiety, and depression. PLAN: Continue physical and occupational therapy. Continue pain control. Continue to encourage fluid intake limited to 1 L a day free water. The patient may have unlimited Gatorade. We will add salt tablets b.i.d. for hyponatremia. We will continue antibiotics for urinary tract infection and adjust according to culture sensitivities. The patient is pending placement to the [facility] for continued physical and occupational therapy. Plan was discussed with the patient, who agrees. The patient was examined by Dr. Henderson during morning rounds. Job ID: [id number]
--- NOTE | 2019-10-20 15:44 | RAD ---
Exam:2 views right hip HISTORY: Arthroplasty. Status post fracture. COMPARISON: None FINDINGS: Expected postoperative changes. Near anatomic alignment. IMPRESSION: Findings compatible with arthroplasty.
[2019-10-20] MEDS ORDERED: Morphine 2 MG/ML VIAL SLOW IVP PRN (16:06)
[2019-10-20] MEDS ORDERED: CEFAZOLIN 2 GM in Premix Bag 1 BAG IVPB SCH (16:15)
[2019-10-20] MEDS ORDERED: Promethazine HCl 25 MG/ML VIAL SLOW IVP PRN (19:29)
[2019-10-20] MEDS ORDERED: Ondansetron HCl/PF 4 MG/2 ML Vial IVP PRN (19:29)
[2019-10-20] MEDS ORDERED: Promethazine HCl 25 MG/ML VIAL IM PRN (19:29)
[2019-10-20] MEDS ORDERED: Morphine 2 MG/ML VIAL ONE (20:00)
[2019-10-20] MEDS ORDERED: PROPOFOL 40 ML ONE (20:46)
[2019-10-20] MEDS ORDERED: Fentanyl 100 MCG/2 ML VIAL ONE (20:46)
--- NOTE | 2019-10-20 21:52 | RAD ---
RIGHT HIP: 10/20/19 A single fluoroscopic image is presented. INDICATIONS: Imaging from OR during post reduction of right hip dislocation. FINDINGS/IMPRESSION: This single image shows reduction of the prosthetic device into the acetabulum. POS: AGW
[2019-10-20] MEDS: Mirtazapine 15 MG Soltab PO SCH (23:08)
--- NOTE | 2019-10-21 02:12 | PRG ---
DATE OF SERVICE: 10/20/2019 SUBJECTIVE: The patient was seen this evening during rounds. She is postoperative day 0 after closed reduction of right hip dislocation and postop day 2 after right hip hemiarthroplasty. Upon my evaluation, the patient was resting in bed comfortably and asleep with no signs of acute distress. Nursing reported no postoperative events. OBJECTIVE: VITAL SIGNS: Temperature 97.9, pulse 85, respirations 16, oxygen saturation 95% on room air, and blood pressure 108/76. GENERAL: Well-appearing elderly female, lying in bed with no signs of acute distress. PULMONARY: Equal chest rise and fall. Clear breath sounds bilaterally. No signs of acute respiratory distress. ASSESSMENT: 1. Status post mechanical fall from standing. 2. Right femoral neck fracture, status post repair. 3. Right hip dislocation, status post closed reduction in the OR. 4. Hyponatremia, stable. 5. Urinary tract infection, present on admission. 6. Acute renal insufficiency, stable. 7. Acute kidney injury, slightly worsening. 8. History of gastroesophageal reflux disease, cirrhosis, chronic obstructive pulmonary disease, fibromyalgia, frequent urinary tract infection, anxiety, depression, and alcohol abuse. PLAN: Continue current diet. Ortho Surgery has put in an n.p.o. after midnight diet for her. We will follow up with them in the morning to see if she needs further operative intervention tomorrow. Continue home medications as previously ordered. Continue Rojas for now. Job ID: [id number]
[2019-10-21] MEDS ORDERED: Sodium Chloride 0.9% 1,000 ML IV SCH ×2 (02:15→23:59)
[2019-10-21] MEDS: Hydrocortisone Sod Succ/PF 100 mg/2 ml Vial IVP SCH ×4 (05:03→21:47)
[2019-10-21] MEDS: Acetaminophen 325 MG TAB PO SCH ×4 (05:03→17:36)
[2019-10-21] MEDS: Oxazepam 10 MG CAP PO SCH ×3 (05:03→21:46)
[2019-10-21 05:16] LABS: Hemoglobin 7.3 g/dL (12.0-16.0); Mean Corpuscular HGB CONC 32.4 g/dL (32.0-36.0); Mean Corpuscular Hemoglobin 31.6 pg (27.0-31.0); Mean Corpuscular Volume 97.5 fL (78.0-98.0); Platelet Count 270 thou/uL (130-400); RBC Distribution Width 13.2 % (11.5-14.5); White Blood Cell (WBC) Count 9.2 thou/uL (4.8-10.8)
[2019-10-21 05:44] LABS: Anion Gap 10 mmol/L (10-20); BUN (Urea Nitrogen) 20 mg/dL (9.8-20.1); Calc. Creatinine Clearance 45 mL/min (70-130); Calcium 8.5 mg/dL (7.8-10.44); Carbon Dioxide 23 mmol/L (23-31); Chloride 102 mmol/L (98-107); Estimated GFR-MDRD 42; Glucose 107 mg/dL (83-110); Phosphorus 3.2 mg/dL (2.3-4.7); Potassium 4.2 mmol/L (3.5-5.1); Sodium 131 mmol/L (136-145)
[2019-10-21] MEDS: Folic Acid 1 MG TAB PO SCH (08:34)
[2019-10-21] MEDS: Multivit, Therapeutic 1 TAB PO SCH (08:34)
[2019-10-21] MEDS: Aspirin 81 mg Enteric Coated Tablet PO SCH ×2 (08:34→21:46)
[2019-10-21] MEDS: Thiamine 100 MG TAB PO SCH (08:35)
[2019-10-21] MEDS: Sulfameth/Trimethoprim DS 800-160mg TAB PO SCH ×2 (08:35→21:46)
[2019-10-21] MEDS: Famotidine 20 MG TAB PO SCH (08:35)
[2019-10-21] MEDS: Sodium Chloride 1 GM TAB PO SCH ×2 (08:36→21:46)
[2019-10-21] MEDS: Polyethylene Glycol 3350 17 GM Packet PO SCH (08:36)
[2019-10-21] MEDS: Propranolol 10 MG TAB PO SCH ×3 (08:37→21:47)
[2019-10-21] MEDS: Senokot S 8.6-50 MG TAB PO SCH ×2 (08:37→21:47)
[2019-10-21] MEDS: Nicotine 7 MG PATCH TD SCH (08:43)
[2019-10-21] MEDS: Ferrous Sulfate 325 MG TAB PO SCH ×2 (08:47→17:35)
[2019-10-21] MEDS: Ascorbic Acid 500 mg Chewable Tablet PO SCH ×2 (08:47→17:36)
--- NOTE | 2019-10-21 10:55 | RAD ---
PELVIS 1 VIEW: Date: 10/21/2019 HISTORY: Hip reduction from dislocation. COMPARISON: Radiograph from prior day. FINDINGS: Satisfactory alignment of right hip arthroplasty. Three partially threaded cannulated screws of the l eft femoral neck. IMPRESSION: Satisfactory appearance right hip arthroplasty. POS: HOME
--- NOTE | 2019-10-21 18:08 | PRG ---
DATE OF SERVICE: 10/21/2019 SUBJECTIVE: The patient remains on the surgical floor. She is postop day #3, status post right hip hemiarthroplasty and postop day #1, status post closed reduction of right hip as yesterday she dislocated it. The patient's pain has been well controlled. The patient walked 500 feet today with physical therapy. The patient is tolerating a regular diet at this time. The patient's sodium has improved some today. The patient's urinary output has been adequate for patient's weight and age. OBJECTIVE: VITAL SIGNS: Temperature 97.5, pulse 83, respirations 14, SpO2 of 95% on room air, blood pressure 109/54. GENERAL: Well-appearing elderly female, awake, alert, in no distress. RESPIRATORY: Equal chest rise and fall, respirations are even and nonlabored. CARDIAC: Regular rate. Regular rhythm. EXTREMITIES: Neurovascularly intact x4. NEUROLOGIC: No focal deficits. GCS 15. LABORATORY DATA: WBC 9.2, RBC 2.30, hemoglobin 7.3, hematocrit 22.5, platelets 270. Sodium 131, potassium 4.2, chloride 102, carbon dioxide 23, BUN 20, creatinine 1.26, estimated GFR 42, glucose 107, calcium 8.5, phosphorus 3.2, magnesium 2.0. BNP 259. DIAGNOSTICS: Pelvis x-ray. Impression: Satisfactory alignment of the right hip arthroplasty. IMPRESSION: 1. Status post mechanical fall with alcohol intoxication. 2. Right hip fracture, status post right hip hemiarthroplasty. 3. Dislocation of right hip, postop day one closed reduction. 4. Hyponatremia, improving. 5. Urinary tract infection on admission, treated. 6. Acute kidney injury. 7. History of alcohol abuse, gastroesophageal reflux disease, cirrhosis, chronic obstructive pulmonary disease, fibromyalgia, frequent urinary tract infections, anxiety and depression. PLAN: Continue physical and occupational therapy. Continue optimal pain control. Continue free water restriction 1L a day with unlimited Gatorade. Continue to monitor urinary output. The patient is pending insurance approval to [facility]. We will add Ensure to patient's diet. The patient is ready for discharge at this time. We will add iron and vitamin C as the patient is anemic. We will repeat a hemoglobin and hematocrit in the morning. Continue VTE prophylaxis with aspirin b.i.d. The patient was examined by Dr. Henderson during morning rounds. Job ID: [id number]
[2019-10-21] MEDS: Mirtazapine 15 MG Soltab PO SCH (21:46)
--- NOTE | 2019-10-21 23:02 | OP ---
DATE OF PROCEDURE: 10/20/2019 PREOPERATIVE DIAGNOSIS: Right posterior hip hemiarthroplasty dislocation. POSTOPERATIVE DIAGNOSIS: Right posterior hip hemiarthroplasty dislocation. PROCEDURE PERFORMED: Closed reduction of right posterior hip dislocation. ANESTHESIA: General. PHLEBOTOMIST SUPERVISOR/INSTRUCTOR: Dennis Maddox PA-C BLOOD LOSS: Zero. COMPLICATIONS: None. DRAINS: None. SPECIMEN: None. OUTCOME: Successful closed reduction. INDICATIONS: Patient is a 74-year-old lady, status post fall sustaining a right femoral neck fracture. Patient is now status post hemiarthroplasty. Earlier today, patient was getting up when she felt a pop in the hip with subsequent shortening of this leg. X-ray has demonstrated a posterior hip dislocation and as such, patient was taken back to the operating room for closed versus open reduction of this dislocated hemiarthroplasty. Informed consent has been obtained. I believe all questions answered. DESCRIPTION OF PROCEDURE: Patient was brought to the operating room and a time-out performed followed by induction of TIVA anesthesia. Once the patient was sedated and chemically relaxed, the hip was flexed to 90 degrees and brought in internal rotation and then direct upward traction applied manually. With this, the hip could be reduced. Once reduced, it was brought through a very full range of motion, was found to be very supple with no crepitation at the hip and actually a quite stable hemiarthroplasty. An AP C-arm image was then obtained that showed a reduction of the hip, bipolar component into the acetabulum. It did appear to be perhaps not fully seated, however, certainly was back in the acetabulum and as such, we opted to send the patient back up to the floor and then follow up with some better quality x-rays before determining whether revision of this hip would be necessary. As such, patient was transferred out of the operating room in stable condition. There were no complications and she tolerated the procedure well. Job ID: [id number]
--- NOTE | 2019-10-22 01:04 | PRG ---
DATE OF SERVICE: 10/21/2019 SUBJECTIVE: Patient was seen this evening during rounds. She was sitting up in bed, resting comfortably and asleep with no signs of acute distress. Nursing reported no acute events. OBJECTIVE: VITAL SIGNS: Temperature 97.8, pulse is 96, respirations 18, oxygen saturation 95% on room air, blood pressure 115/78. GENERAL: Well-appearing elderly female, sitting up in bed, asleep with no signs of acute distress. PULMONARY: Equal chest rise and fall. No signs of acute respiratory distress. ASSESSMENT: 1. Status post mechanical fall from standing. 2. Right femoral neck fracture, status post repair. 3. Postoperative right hip dislocation, status post reduction. 4. Hyponatremia, improving. 5. Urinary tract infection, currently being treated with Bactrim sensitivities demonstrate that E. coli is sensitive to the Bactrim. 6. Acute adrenal insufficiency, improving. 7. Acute kidney injury, stable. 8. History of gastroesophageal reflux disease, cirrhosis, chronic obstructive pulmonary disease, fibromyalgia, frequent urinary tract infections, anxiety, depression, and alcohol abuse. PLAN: Continue current diet and pain regimen. Continue physical and occupational therapy. Continue hydrocortisone. We will consider discontinuing the Rojas catheter in the morning after evaluating her urinary output and kidney function. The patient is pending placement at a [place] [facility]. Job ID: [id number]
[2019-10-22] MEDS: Hydrocortisone Sod Succ/PF 100 mg/2 ml Vial IVP SCH ×2 (04:50→10:50)
[2019-10-22] MEDS: Oxazepam 10 MG CAP PO SCH ×2 (05:00→14:41)
[2019-10-22] MEDS: Acetaminophen 325 MG TAB PO SCH ×2 (05:00→12:56)
[2019-10-22 05:53] LABS: Hemoglobin 7.2 g/dL (12.0-16.0); Mean Corpuscular HGB CONC 32.7 g/dL (32.0-36.0); Mean Corpuscular Hemoglobin 32.3 pg (27.0-31.0); Mean Corpuscular Volume 98.6 fL (78.0-98.0); Mean Platelet Volume 6.3 fL (7.4-10.4); Platelet Count 289 thou/uL (130-400); RBC Distribution Width 13.3 % (11.5-14.5); Red Blood Cell (RBC) Count 2.23 mill/uL (4.20-5.40); White Blood Cell (WBC) Count 8.8 thou/uL (4.8-10.8)
[2019-10-22 06:22] LABS: Anion Gap 11 mmol/L (10-20); BUN (Urea Nitrogen) 25 mg/dL (9.8-20.1); Calc. Creatinine Clearance 45 mL/min (70-130); Calcium 8.4 mg/dL (7.8-10.44); Carbon Dioxide 22 mmol/L (23-31); Chloride 101 mmol/L (98-107); Estimated GFR-MDRD 41; Glucose 114 mg/dL (83-110); Phosphorus 2.3 mg/dL (2.3-4.7); Potassium 4.7 mmol/L (3.5-5.1); Sodium 129 mmol/L (136-145)
[2019-10-22] MEDS: Folic Acid 1 MG TAB PO SCH (08:24)
[2019-10-22] MEDS: Ferrous Sulfate 325 MG TAB PO SCH (08:24)
[2019-10-22] MEDS: Ascorbic Acid 500 mg Chewable Tablet PO SCH (08:24)
[2019-10-22] MEDS: Aspirin 81 mg Enteric Coated Tablet PO SCH (08:25)
[2019-10-22] MEDS: Multivit, Therapeutic 1 TAB PO SCH (08:25)
[2019-10-22] MEDS: Sulfameth/Trimethoprim DS 800-160mg TAB PO SCH (08:25)
[2019-10-22] MEDS: Nicotine 7 MG PATCH TD SCH (08:25)
[2019-10-22] MEDS: Senokot S 8.6-50 MG TAB PO SCH (08:25)
[2019-10-22] MEDS: Thiamine 100 MG TAB PO SCH (08:25)
[2019-10-22] MEDS: Sodium Chloride 1 GM TAB PO SCH (08:25)
[2019-10-22] MEDS: Polyethylene Glycol 3350 17 GM Packet PO SCH (08:25)
[2019-10-22] MEDS: Propranolol 10 MG TAB PO SCH ×2 (08:33→14:41)
[2019-10-22 15:27] VITALS: BP 127/67
[2019-10-22 16:33] VITALS: TEMP 97.7
--- NOTE | 2019-10-23 12:31 | DIS ---
DATE OF ADMISSION: 10/17/2019 DATE OF DISCHARGE: 10/22/2019 DISCHARGE ATTENDING: Dr. Hednerson. CONSULTS: Orthopedic Surgery, Dr. Cardoso. PROCEDURES: 1. On 10/18/2019, right hip hemiarthroplasty. 2. On 10/20/2019, closed reduction of right hip dislocation. PRIMARY DIAGNOSES: 1. Mechanical fall, right femoral neck fracture, hyponatremia, urinary tract infection on admission. 2. Acute adrenal insufficiency, resolved. 3. Acute kidney injury, stable. SECONDARY DIAGNOSES: Gastroesophageal reflux disease, cirrhosis, chronic obstructive pulmonary disease, fibromyalgia, frequent urinary tract infections, anxiety, depression, and alcohol abuse. DISCHARGE MEDICATIONS: 1. Flexeril 5 mg p.o. 3 times a day p.r.n. muscle spasms, #20. 2. Tramadol 50 mg p.o. q.6 hours p.r.n. pain, #40. 3. Acetaminophen 650 mg p.o. q.6 hours. 4. Vitamin C 500 mg p.o. b.i.d. with meals for 30 days for anemia. 5. Aspirin 81 mg p.o. b.i.d. for 30 days for VTE prophylaxis. 6. Ferrous sulfate 325 mg p.o. b.i.d. with meals for 30 days for anemia. 7. Folic acid 1 mg p.o. daily. 8. Remeron 15 mg p.o. h.s. 9. Multivitamin daily one tab. 10. Inderal 10 mg p.o. 3 times a day, hold for blood pressure less than 120 systolic and/or heart rate less than 60. 11. Senokot as needed for constipation. 12. Thiamine 100 mg p.o. daily for 30 days. 13. Lasix 40 mg p.o. daily, hold for systolic blood pressure less than 100. 14. Gabapentin 300 mg p.o. b.i.d. 15. Lisinopril 5 mg p.o. daily, hold for systolic blood pressure less than 130. 16. Protonix 20 mg p.o. daily. 17. Sodium chloride 1 g p.o. b.i.d. for seven days for hyponatremia. No discontinued medications. HISTORY OF PRESENT ILLNESS AND HOSPITAL COURSE: This is a 74-year-old lady, who was outside at her home, watering the lawn, when she tripped over the hose, fell, landing on her right hip. She was unable to ambulate back to her house, although her found her approximately 20 minutes later when he came home and called 911. The patient was brought to the emergency department, where she was evaluated and found to have a right hip fracture. The patient was noted to have hyponatremia also. Orthopedic Services was consulted, and Trauma Services was asked to admit the patient for medical management. The patient denied any loss of consciousness or syncopal episode prior to her falling. The patient reported she just tripped and fell. The patient's pain was controlled pre and postop. The patient did have an extended length of stay due to placement options. The patient was treated for her urinary tract infection with Bactrim, and doses were completed. Cultures revealed E coli and was sensitive to Bactrim. The patient was also given Serax during her hospital stay for alcohol withdrawal prophylaxis. The patient was treated with hydrocortisone for acute adrenal insufficiency as the patient had hypotension postop. The patient was treated with iron and vitamin C for her anemia. The patient's hemoglobin and hematocrit did stabilize, but remained anemic. The patient did have some worsening hyponatremia as low as 129. The patient was on 1 L free water restriction with no improvement and was then placed on a total free water restriction with unlimited Gatorade milk or juice. The patient also had some urinary retention, which resolved. The patient's urinary output was adequate during her hospital stay. The patient's Lasix and blood pressure medications were held due to her hypotension. Recommended restarting with hold parameters. Also recommended getting another CBC and CMP to monitor hemoglobin and hyponatremia in 1 week or sooner if the patient becomes symptomatic. On the day of discharge, the patient was seen and evaluated. The patient had no complaints, and her pain was well controlled. The patient was tolerating her diet. The patient's vital signs were stable, and her exam was unremarkable including cardiopulmonary and GI exam. The patient was deemed stable for discharge to [facility] for continued physical and occupational therapy. DISPOSITION: Stable. DISCHARGE INSTRUCTIONS: 1. Location: [facility]. 2. Diet: Regular diet, added salt, supplement with Ensure b.i.d. 3. Activity: Weightbearing as tolerated, posterior hip precautions. 4. Followup: Follow up with Orthopedic Surgery as directed. No need to follow up with Trauma Services. Call for any questions. The [place] prescription monitoring program was accessed, and there was no recent prescriptions prescribed for this patient. Job ID: [id number] MTDD
== END 2019-10-22 16:00 | DRG 470 ==
LOC: ERS 22:19 → 2NO 10-17 01:54 → SURG A 10-18 13:42
PROVIDERS: ADMIT Surgery; ATTEND Surgery
PROC: 0SRR0JA Replacement of Right Hip Joint, Femoral Surface with Synthetic Substitute, Uncemented, Open Approach (ICD-10-PCS; principal; 2019-10-18)
PROC: 0SWRXJZ Revision of Synthetic Substitute in Right Hip Joint, Femoral Surface, External Approach (ICD-10-PCS; 2019-10-20)
DX: S72.041A Displaced fracture of base of neck of right femur, initial encounter for closed fracture (principal); T84.020A Dislocation of internal right hip prosthesis, initial encounter; E87.1 Hypo-osmolality and hyponatremia; N39.0 Urinary tract infection, site not specified; E27.40 Unspecified adrenocortical insufficiency; N17.9 Acute kidney failure, unspecified; K21.9 Gastro-esophageal reflux disease without esophagitis; M79.7 Fibromyalgia; K70.30 Alcoholic cirrhosis of liver without ascites; F41.9 Anxiety disorder, unspecified; F32.9 Major depressive disorder, single episode, unspecified; F10.220 Alcohol dependence with intoxication, uncomplicated; J44.9 Chronic obstructive pulmonary disease, unspecified; B96.20 Unspecified Escherichia coli [E. coli] as the cause of diseases classified elsewhere; D64.9 Anemia, unspecified; I95.9 Hypotension, unspecified; W01.0XXA Fall on same level from slipping, tripping and stumbling without subsequent striking against object, initial encounter; Y92.017 Garden or yard in single-family (private) house as the place of occurrence of the external cause; Z87.891 Personal history of nicotine dependence; Y83.1 Surgical operation with implant of artificial internal device as the cause of abnormal reaction of the patient, or of later complication, without mention of misadventure at the time of the procedure; Z79.899 Other long term (current) drug therapy
CPT/HCPCS: 36415; 36416; 70450; 72170; 76000; 80048; 80053; 81001; 82533; 83735; 83880; 83930; 83935; 84100; 84300; 84443; 84484; 85007; 85025; 85027; 85610; 85730; 86850; 86900; 86901; 87077; 87086; 87186; 93005; 96361; 96374; 96376; J0690; J1100; J1650; J1720; J2270; J2370; J2405; J2704; J3010; J3475; J7050

== ENCOUNTER 2019-11-04 20:09 | Inpatient (IN) | payer MEDICARE, OTHER ==
[2019-11-04 20:53] LABS: #Basophils 0.1 thou/uL (0.0-0.2); #Eosinphils 0.2 thou/uL (0.0-0.7); #Lymphocytes 1.6 thou/uL (1.20-3.40); #Monocytes 0.5 thou/uL (0.11-0.59); %Basophils 1.3 % (0.0-1.0); %Eosinophils 4.2 % (0.0-10.0); %Lymphocytes 36.9 % (21.0-51.0); %Monocytes 11.8 % (0.0-10.0); %Neutrophils 45.8 % (42.0-75.0); Hemoglobin 8.4 g/dL (12.0-16.0); Mean Corpuscular HGB CONC 32.8 g/dL (32.0-36.0); Mean Corpuscular Hemoglobin 33.2 pg (27.0-31.0); Mean Platelet Volume 5.9 fL (7.4-10.4); Platelet Count 434 thou/uL (130-400); RBC Distribution Width 13.4 % (11.5-14.5); Red Blood Cell (RBC) Count 2.52 mill/uL (4.20-5.40); White Blood Cell (WBC) Count 4.3 thou/uL (4.8-10.8)
[2019-11-04] MEDS ORDERED: Morphine 4 MG/ML VIAL ONE ×2 (20:59→22:02)
[2019-11-04 21:01] LABS: PTT 31.7 sec (22.9-36.1); Prothrombin Time 13.1 sec (12.0-14.7)
[2019-11-04 21:12] LABS: ALT (SGPT) 7 U/L (8-55); AST (SGOT) 19 U/L (5-34); Albumin 3.6 g/dL (3.4-4.8); Alkaline Phosphatase 143 U/L (40-110); Anion Gap 13 mmol/L (10-20); BUN (Urea Nitrogen) 10 mg/dL (9.8-20.1); Bilirubin, Total 0.8 mg/dL (0.2-1.2); Calc. Creatinine Clearance 0 mL/min (70-130); Calcium 9.2 mg/dL (7.8-10.44); Carbon Dioxide 29 mmol/L (23-31); Chloride 92 mmol/L (98-107); Estimated GFR-MDRD 59; Globulin 3.1 g/dL (2.4-3.5); Glucose 98 mg/dL (83-110); Potassium 3.3 mmol/L (3.5-5.1); Protein, Total 6.7 g/dL (6.0-8.3); Sodium 131 mmol/L (136-145)
--- NOTE | 2019-11-04 21:44 | RAD ---
Exam: Chest one view HISTORY:Preoperative exam Comparison: 02/03/2019 FINDINGS: Cardiac silhouette:Cardiomegaly Aorta: Unremarkable Pulmonary vessels: Normal Costophrenic angles: Clear LUNGS: No masses or consolidation. Chronic lung parenchymal changes. Pneumothorax: None Osseous abnormalities: None IMPRESSION: No acute cardiopulmonary process.
--- NOTE | 2019-11-04 21:46 | RAD ---
Exam: One view pelvis HISTORY: Hip replacement one month ago. Stable 4 days ago. Possible COMPARISON: 10/21/2019 FINDINGS: Dislocation of the right prosthetic femoral head with respect to the right acetabulum. No evidence of a complicating process or lucency with regards to the internal fixation hardware proje cting over the left hip Intact IMPRESSION: Dislocation of the right hip.
--- NOTE | 2019-11-04 21:48 | RAD ---
Exam:Right hip 2 view HISTORY: Patient felt a pop. Right hip arthroplasty. COMPARISON: None FINDINGS: Dislocation of the right prosthetic femoral head with respect to the acetabulum. IMPRESSION: Dislocation.
[2019-11-04 22:29] LABS: Magnesium 1.5 mg/dL (1.6-2.6); Phosphorus 3.2 mg/dL (2.3-4.7)
--- NOTE | 2019-11-04 23:46 | HP ---
REQUESTING SURGEON: Dr. Bernstein. CONSULTATIONS: Orthopedics, Dr. Michelle. HISTORY OF PRESENT ILLNESS: The patient is a 74-year-old woman, who is known to our service as she was admitted earlier this month for a right femoral neck fracture in which she underwent right hip hemiarthroplasty. During that hospital stay, she dislocated her prosthesis and required a trip to the operating room to undergo closed reduction of the same. She was then discharged on 10/22/2019 to [facility]. When tonight, she was transferring from her bed to her wheelchair, when she felt a pop and had extreme pain in that right hip, she was brought to the emergency department where she underwent evaluation and examination and was noted to have a posterior prosthetic dislocation at which time we were asked to evaluate the patient for admission and obtain orthopedic consultation. Dr. Bernstein was able to contact Dr. Michelle who had done her previous reduction and he asked that she be admitted for closed reduction tomorrow and other indicated procedures. ALLERGIES: NONE. CURRENT MEDICATIONS: 1. Flexeril. 2. Tramadol. 3. Tylenol. 4. Multivitamins with iron. 5. Aspirin. 6. Remeron. 7. Inderal. 8. Lasix. 9. Gabapentin. 10. Lisinopril. 11. Protonix. PAST SURGICAL HISTORY: Appendectomy, x3, hysterectomy, left hip closed reduction and percutaneous pinning, right hip hemiarthroplasty, and closed reduction of right hip dislocation. PAST MEDICAL HISTORY: Gastroesophageal reflux disease, liver cirrhosis, COPD, fibromyalgia, recurrent UTI, anxiety, depression. SOCIAL HISTORY: The patient previously lived at home with her spouse prior to her earlier injury. She reports that she smoked 2-3 packs of cigarettes per day, but quit approximately 10 years ago. She denies drug use, but did drink 6-8 beers per day previously. REVIEW OF SYSTEMS: 10-point review of systems is negative as otherwise stated. PHYSICAL EXAMINATION: VITAL SIGNS: Blood pressure 131/73, heart rate 82, respirations 16, oxygen saturation 95% on room air, and temperature is 98.4. GENERAL: The patient is resting comfortably in bed. She is awake, alert, and oriented. [place] Coma Scale is 15. HEENT. Head is normocephalic atraumatic. Eyes, extraocular motion intact. PERRLA bilaterally. Ears are atraumatic without discharge. Nose atraumatic without discharge. Oropharynx is clear. NECK: Nontender. Trachea is midline with no JVD. CHEST: Clear to auscultation with good inspiratory and expiratory effort. HEART: Regular rate and rhythm. ABDOMEN: Soft, flat, nontender with active bowel sounds. PELVIS: Stable with tenderness to palpation to the right hip consistent with her dislocation. She does hold her right lower extremity flexed and abducted. EXTREMITIES: Neurovascularly intact x4. BACK: By report is atraumatic and nontender. LABORATORY FINDINGS: White blood cell count 4.3, hemoglobin 8.4, hematocrit 25.6, platelets 434. Sodium 131, potassium 3.3, chloride 92, CO2 of 29, BUN 10, creatinine 0.94, glucose 98, magnesium 1.5, phosphorus 3.2. LFTs are unremarkable with the exception of a slightly elevated alkaline phosphatase of 143. INR of 1.0. RADIOGRAPHIC FINDINGS: AP chest x-ray shows no acute cardiopulmonary process. AP pelvis shows a dislocation of the right hip. Views of the right hip show dislocation of the right prosthetic femoral head with respect to the acetabulum. ASSESSMENT AND PLAN: 1. Status post right prosthetic hip dislocation. 2. Acute pain secondary to above. 3. Hyponatremia, chronic. 4. Anemia, chronic. 5. Hypomagnesemia. Plan will be to admit the patient to the surgical floor. We will do pain control, pulmonary toilet, gastritis, mechanical VTE prophylaxis. We will replace her electrolytes. Make her n.p.o. after midnight and likely undergo closed reduction tomorrow. Dr. Michelle again was made aware of this patient. The evaluation, examination, laboratory, and radiographic findings will be discussed with Dr. De La Vega after this dictation. Job ID: [id number]
[2019-11-05] MEDS ORDERED: Ondansetron PF 4 MG/2 ML Vial IVP PRN ×2 (01:41→01:46)
[2019-11-05] MEDS ORDERED: Ondansetron ODT 4 MG TAB SL PRN (01:41)
[2019-11-05] MEDS ORDERED: Dextrose 5% in Water 1,000 ML IV PRN (01:46)
[2019-11-05] MEDS ORDERED: Ondansetron ODT 4 MG TAB PO PRN (01:46)
[2019-11-05] MEDS ORDERED: traMADol HCl 50 MG TAB PO PRN (01:46)
[2019-11-05] MEDS ORDERED: Morphine 2 MG/ML VIAL SLOW IVP PRN (01:46)
[2019-11-05] MEDS ORDERED: Dextrose 50% Abboject 50 ML SYRINGE SLOW IVP PRN (01:46)
[2019-11-05] MEDS ORDERED: Sodium Chloride 0.9% 1,000 ML IV SCH (01:46)
[2019-11-05] MEDS ORDERED: hydrALAZINE 20 MG/ML VIAL SLOW IVP PRN (01:46)
[2019-11-05] MEDS ORDERED: Ketorolac Tromethamine 30 MG/ML VIAL IVP SCH (02:00)
[2019-11-05] MEDS ORDERED: Acetaminophen 325 MG TAB PO SCH (02:00)
[2019-11-05 03:30] VITALS: BMI 30.3
[2019-11-05] MEDS: traMADol HCl 50 MG TAB PO PRN (04:03)
[2019-11-05 05:38] LABS: Anion Gap 13 mmol/L (10-20); BUN (Urea Nitrogen) 11 mg/dL (9.8-20.1); Calc. Creatinine Clearance 60 mL/min (70-130); Calcium 9.6 mg/dL (7.8-10.44); Carbon Dioxide 29 mmol/L (23-31); Chloride 94 mmol/L (98-107); Estimated GFR-MDRD 54; Glucose 99 mg/dL (83-110); Potassium 3.7 mmol/L (3.5-5.1); Sodium 132 mmol/L (136-145)
[2019-11-05 05:48] LABS: Band 5 % (5-11); Eosinophils 4 % (0-10); Hemoglobin 9.4 g/dL (12.0-16.0); Lymphocytes 34 % (21-51); MDiff Complete? YES; Mean Corpuscular HGB CONC 31.1 g/dL (32.0-36.0); Mean Corpuscular Hemoglobin 31.6 pg (27.0-31.0); Mean Platelet Volume 6.3 fL (7.4-10.4); Monocytes 6 % (0-10); Neutrophil 51 % (42-75); Platelet Count 427 thou/uL (130-400); Platelet Morphology Comment Appears Increased; RBC Distribution Width 13.2 % (11.5-14.5); Red Blood Cell (RBC) Count 2.96 mill/uL (4.20-5.40); White Blood Cell (WBC) Count 5.3 thou/uL (4.8-10.8)
[2019-11-05] MEDS: Ibuprofen 600 MG TAB PO SCH ×3 (06:14→21:23)
[2019-11-05] MEDS: Acetaminophen 325 MG TAB PO SCH ×4 (06:15→23:15)
[2019-11-05] MEDS ORDERED: Magnesium Sulfate 3 GM in Sodium Chloride 0.9% 250 ML 250 ML IVPB SCH (06:45)
[2019-11-05 07:59] LABS: Magnesium 1.6 mg/dL (1.6-2.6); Phosphorus 3.7 mg/dL (2.3-4.7)
[2019-11-05] MEDS: Famotidine 20 MG TAB PO SCH ×2 (08:34→21:23)
[2019-11-05] MEDS: Propranolol 10 MG TAB PO SCH ×3 (08:34→21:23)
--- NOTE | 2019-11-05 08:35 | CON ---
DATE OF CONSULTATION: This is Dennis Maddox PA-C dictating a report for Jeffrey Michelle MD. HISTORY: The patient returns after another posterior hip dislocation. The patient initially had surgery on 10/18/2019. She did well, but then she was getting up to work with PT, on 10/20, felt a pop and she had dislocated her hip posteriorly. Dr. Michelle took her to the OR for closed reduction on 10/20 and the patient did well. She was then at her [facility] facility, recuperating and she was getting up to the wheelchair and felt another pop. The patient brought from her facility and found to have another hip dislocation. Dr. Michelle and I are talking with the patient. She states her pain is 10/10. He spoke with the patient regarding surgical options. We do need to order some special equipment to do with this surgery to transition her from a hemiarthroplasty to a total hip. Dr. Michelle and I explained the procedure, Mikey will talk about this further down in the plan. No numbness or tingling in the legs, just quite a bit of pain. No other injuries from this incident. She is currently on telemetry due to magnesium of 1.5. PAST MEDICAL HISTORY: Positive for liver cirrhosis, COPD, gout, UTIs, malnutrition, depression, muscle weakness with some muscle wasting, atrophy, shortness of breath, dysphagia, unsteady gait, some decline in her cognition, chronic pain, hypertension, GERD, IBS, and vitamin D deficiency. ALLERGIES: NONE. CURRENT MEDICATIONS: Flexeril, tramadol, Tylenol, multivitamins with iron, aspirin, Remeron, Inderal, Lasix, gabapentin, lisinopril, Protonix. PAST SURGICAL HISTORY: Appendectomy, x3, hysterectomy, left hip closed reduction with percutaneous screws, right hip hemiarthroplasty and closed reduction. SOCIAL HISTORY: Lived at home prior to her hemiarthroplasty and closed reduction, currently in nursing facility. Past smoker. No nicotine products, but did drink 5 to 8 beers a day. FAMILY HISTORY: For this event is noncontributory. REVIEW OF SYSTEMS: Mild shortness of breath, mostly complaints of right hip pain. Rest of review of systems negative. PHYSICAL EXAMINATION: GENERAL: Well-nourished, well-developed female in quite a bit of pain, but pleasant. Speech clear. Answers questions appropriately. She is alert and oriented x3. HEENT: Face symmetric. Tongue midline. Scalp atraumatic. NECK: Supple. Trachea midline. LUNGS: Respirations 16 and a little labored mostly I think due to pain. She does not feel short of breath. EXTREMITIES: Upper extremities equal size, shape, and symmetry. Normal bulk and tone. Movements and sensations are intact. Otherwise, lower extremities equal size, shape, symmetry. Normal bulk and tone with exception of the right hip. Moving her toes well. DP and PT pulses are intact as are sensations. PELVIS: Definite pain with rocking, especially on the right side, but no true pelvic pain. Right hip obviously swollen definitely . LABORATORY DATA: WBCs 5.3, hemoglobin 9.4, hematocrit 30, and platelets 427. Coags normal. Chemistry; sodium 132, little bit low; chloride 94, little bit low; and magnesium is 1.5. ALT 7, alkaline phosphatase 143. IMAGING DATA: X-rays shows definite right hip dislocation. ASSESSMENT: 1. Right hip dislocation. 2. Status post hemiarthroplasty on 10/18/2019. PLAN: Again spoke with the patient. We would like to transition her from hemiarthroplasty to a total hip. We explained the procedure for her. She understands the risks and benefits. Her questions and concerns have been addressed and she is amenable to go forth with surgery. We did talk to the patient. She may need to have a closed reduction today and that is to help with pain. If we cannot get the revision hardware here, then we will have to schedule her for tomorrow. We will keep her n.p.o. She has been admitted via trauma and they are working on pain control. If further questions or concerns arise prior to surgery or reduction of hip, we will go over those at that time. Job ID: [id number]
[2019-11-05] MEDS ORDERED: CEFAZOLIN 2 GM in Premix Bag 1 BAG IVPB SCH (08:45)
[2019-11-05] MEDS ORDERED: Vancomycin 1.5 GRAM/300 ML BAG 1.5 GM in Premix Bag 1 BAG IVPB SCH (09:00)
[2019-11-05] MEDS ORDERED: EPHEDRINE 25 MG/5 ML SYRINGE ONE (09:50)
[2019-11-05] MEDS ORDERED: PHENYLEPHRINE-NS 100 MCG/ML 10 ML SYRINGE ONE (09:50)
[2019-11-05] MEDS ORDERED: Rocuronium Bromide 10 MG/ML (10ML VIAL) ONE (09:50)
[2019-11-05] MEDS ORDERED: Lidocaine 1% PF 5 ML VIAL ONE (09:50)
[2019-11-05] MEDS ORDERED: PROPOFOL 200 MG/20 ML VIAL ONE (09:50)
[2019-11-05] MEDS ORDERED: Ondansetron PF 4 MG/2 ML Vial ONE (09:50)
[2019-11-05] MEDS ORDERED: Vancomycin 1.5 GRAM/300 ML BAG ONE (13:02)
[2019-11-05] MEDS ORDERED: Promethazine HCl 25 MG/ML VIAL IM PRN ×2 (13:04→14:15)
[2019-11-05] MEDS ORDERED: Promethazine HCl 25 MG/ML VIAL SLOW IVP PRN ×2 (13:04→14:15)
[2019-11-05] MEDS ORDERED: Meperidine HCl/PF 25 MG/ML VIAL SLOW IVP PRN (13:04)
[2019-11-05] MEDS ORDERED: Ondansetron HCl/PF 4 MG/2 ML Vial IVP PRN (13:04)
[2019-11-05] MEDS ORDERED: Fentanyl 100 MCG/2 ML VIAL ONE (13:56)
[2019-11-05] MEDS ORDERED: SUGAMMADEX SODIUM 200 MG/2 ML VIAL ONE (14:08)
[2019-11-05 14:09] LABS: SARS-CoV-2 MS2 Positive; SARS-CoV-2 N Gene Negative; SARS-CoV-2 S Gene Negative; SARS-CoV-2 by NAA Not Detected (NotDetected); SARS-CoV-2 orf1ab Negative
[2019-11-05] MEDS ORDERED: PACU-Morphine 4MG/ML VIAL SLOW IVP PRN (14:15)
--- NOTE | 2019-11-05 14:44 | RAD ---
XR Pelvis AP STANDARD History: Postreduction films in operating room Comparison: Radiograph prior day Findings: Satisfactory location right hip hemiarthroplasty. 3 partially threaded cannulated screws th e left femoral neck. Phleboliths in the pelvis. Impression: Satisfactory location right hip hemiarthroplasty.
--- NOTE | 2019-11-05 15:23 | PRG ---
DATE OF SERVICE: 11/05/2019 SUBJECTIVE: The patient was seen during morning rounds with Dr. Henderson. The patient is hospital day #2, status post dislocation of her right hip prosthesis. The patient initially underwent surgical repair on 10/18/2019. The patient reports that her pain was well controlled at this time. The patient has been n.p.o. overnight. The patient voices no complaints or concerns. OBJECTIVE: VITAL SIGNS: Blood pressure 150/89, temperature 98.1, pulse 81, respirations 18, and SpO2 of 98% on room air. GENERAL: Well-appearing elderly female, awake, alert, no distress. RESPIRATORY: Good inspiratory and expiratory effort, no respiratory distress. ABDOMEN: Soft, nontender, and nondistended. EXTREMITIES: Neurovascularly intact x4. LABORATORY DATA: COVID-19 PCR not detected. Sodium 132, potassium 3.7, chloride 94, carbon dioxide 29, anion gap 13, BUN 11, creatinine 1.01, estimated GFR 54, glucose 99, calcium 9.6, phosphorus 3.7, and magnesium 1.6. WBC 5.3, RBC 2.96, hemoglobin 9.4, hematocrit 30.0, and platelets 427. ASSESSMENT: 1. Status post right prosthetic hip dislocation. 2. Acute pain secondary to above. 3. Hyponatremia, chronic. 4. Anemia, chronic. 5. Hypomagnesemia. PLAN: Continue n.p.o. until surgery. Orthopedic Surgery plans to take the patient sometime today after COVID results. Continue pain control. Replace electrolytes. Postop, the patient will be on a free water restriction 1 L a day. The patient may have unlimited Gatorade. We will have PT/OT evaluate and treat postop. The patient will likely go back to [facility] once ready for discharge. The patient was examined by Dr. Henderson. The plan was discussed with the patient who agrees. Job ID: [id number] [facility]
[2019-11-06] MEDS: Acetaminophen 325 MG TAB PO SCH ×3 (06:04→17:45)
[2019-11-06] MEDS: Ibuprofen 600 MG TAB PO SCH ×3 (06:05→21:56)
[2019-11-06 06:21] LABS: Hemoglobin 7.9 g/dL (12.0-16.0); Mean Corpuscular HGB CONC 32.3 g/dL (32.0-36.0); Platelet Count 435 thou/uL (130-400); RBC Distribution Width 13.3 % (11.5-14.5); Red Blood Cell (RBC) Count 2.39 mill/uL (4.20-5.40); White Blood Cell (WBC) Count 5.6 thou/uL (4.8-10.8)
[2019-11-06 06:38] LABS: Anion Gap 11 mmol/L (10-20); BUN (Urea Nitrogen) 13 mg/dL (9.8-20.1); Calc. Creatinine Clearance 48 mL/min (70-130); Calcium 8.8 mg/dL (7.8-10.44); Carbon Dioxide 28 mmol/L (23-31); Chloride 98 mmol/L (98-107); Estimated GFR-MDRD 42; Glucose 79 mg/dL (83-110); Magnesium 2.1 mg/dL (1.6-2.6); Phosphorus 3.8 mg/dL (2.3-4.7); Potassium 3.4 mmol/L (3.5-5.1); Sodium 134 mmol/L (136-145)
[2019-11-06] MEDS ORDERED: Vancomycin 1.5 GRAM/300 ML BAG 1.5 GM in Premix Bag 1 BAG IVPB SCH (07:25)
[2019-11-06] MEDS ORDERED: CEFAZOLIN 2 GM in Premix Bag 1 BAG IVPB SCH (07:25)
[2019-11-06] MEDS ORDERED: Sodium Chloride 0.9% 1,000 ML IV SCH (07:45)
[2019-11-06] MEDS ORDERED: Vancomycin 1.5 GRAM/300 ML BAG ONE (07:50)
[2019-11-06] MEDS ORDERED: Fentanyl 100 MCG/2 ML VIAL ONE ×2 (08:58→11:26)
[2019-11-06] MEDS: Propranolol 10 MG TAB PO SCH ×3 (09:00→20:07)
[2019-11-06] MEDS ORDERED: Lidocaine 1% PF 5 ML VIAL ONE (09:10)
[2019-11-06] MEDS ORDERED: PHENYLEPHRINE-NS 100 MCG/ML 10 ML SYRINGE ONE (09:10)
[2019-11-06] MEDS ORDERED: Ondansetron PF 4 MG/2 ML Vial ONE ×2 (09:10→11:21)
[2019-11-06] MEDS ORDERED: Rocuronium Bromide 10 MG/ML (10ML VIAL) ONE (09:10)
[2019-11-06] MEDS ORDERED: PROPOFOL 200 MG/20 ML VIAL ONE (09:10)
[2019-11-06] MEDS ORDERED: Glycopyrrolate 0.2 MG/ML 5 ML SYRINGE ONE (09:10)
[2019-11-06] MEDS ORDERED: Succinylcholine Chloride 20 MG/ML 10 ml SYRINGE FS ONE (09:10)
[2019-11-06] MEDS ORDERED: Dexamethasone 20 MG/5 ML VIAL ONE (09:10)
[2019-11-06] MEDS ORDERED: Tobramycin Sulfate 1.2 GM VIAL ONE (10:05)
[2019-11-06] MEDS: Famotidine 20 MG TAB PO SCH ×2 (10:12→20:06)
[2019-11-06] MEDS: Ascorbic Acid 500 mg Chewable Tablet PO SCH ×2 (10:12→20:06)
[2019-11-06] MEDS: Ferrous Sulfate 325 MG TAB PO SCH ×2 (10:12→17:45)
[2019-11-06 10:20] LABS: Glucose 65 mg/dL (83-110)
--- NOTE | 2019-11-06 10:41 | OP ---
DATE OF PROCEDURE: 11/05/2019 PREOPERATIVE DIAGNOSIS: Posterior dislocation, right hip hemiarthroplasty. POSTOPERATIVE DIAGNOSIS: Posterior dislocation, right hip hemiarthroplasty. PROCEDURE PERFORMED: Closed reduction of right hip hemiarthroplasty dislocation. ANESTHESIA: General. METER ATTENDANT: Tan. BLOOD LOSS: Zero. COMPLICATIONS: None. DRAINS: None. IMPLANTS: None. SPECIMENS: None. OUTCOME: Reduced hip hemiarthroplasty. INDICATIONS FOR PROCEDURE: The patient is a 74-year-old lady, who is now about 2-1/2 weeks status post right hip hemiarthroplasty for a femoral neck fracture. Unfortunately, while still in the hospital following her surgery, she had an episode of posterior dislocation, which was successfully reduced, closed. She was subsequently discharged to home. However, last evening while rolling over in bed, she again had a posterior dislocation. As such, she was now taken to the operating room for anticipated closed reduction with plans for staged revision for this hemiarthroplasty. The revision is not possible today due to the lack of equipment for this revision surgery. Informed consent has been obtained, I believe all questions have been answered. DESCRIPTION OF PROCEDURE: The patient was brought to the operating room and a time-out performed followed by induction of general anesthesia. Next, the patient was positioned supine on the radiolucent OR table and then a closed reduction maneuver was performed with the hip brought up to approximately 80 degrees of flexion, then longitudinal traction applied. This resulted in a relatively simple closed reduction. The hip was found to be stable when it was brought into abduction or really any significant type of internal rotation, it began to sublux. As such, the patient was placed in an abduction pillow. She was woken in the operating room and then transferred to recovery room in stable condition and again there are plans to proceed with a revision surgery once all of the equipment has been delivered to the hospital. Job ID: [id number]
[2019-11-06 11:01] LABS: BF Color Red; Body Fluid Source Abscess Fluid; Clarity Cloudy/Turbid (Clear); Tube # EDTA; WBC/Nucleated-Auto (BF) 154 uL
[2019-11-06] MEDS ORDERED: Promethazine HCl 25 MG/ML VIAL IM PRN (11:16)
[2019-11-06] MEDS ORDERED: Promethazine HCl 25 MG/ML VIAL SLOW IVP PRN (11:16)
[2019-11-06] MEDS ORDERED: Ondansetron HCl/PF 4 MG/2 ML Vial IVP PRN (11:16)
--- NOTE | 2019-11-06 11:51 | RAD ---
Radiograph pelvis one view: 11/06/2019 HISTORY: 74-year-old female with dislocation of right hip arthroplasty. FINDINGS: There was dislocation of right hip hemiarthroplasty on 11/04/2019, which was successfully reduced on t he image of 11/05/2019. Now, that right-sided hardware has been removed, and replaced with new hardware. There is a new aceta bular cup anchored to the pelvis with screw. This articulates with a new femoral head and neck prosthesis with stem that reaches junction between proximal and middle thirds of femoral diaphysis. T here are new right lateral skin jacquelin. Again noted are the 3 screws in the left proximal femur through intertrochanteric region with tips at femoral head. Iliac crests have been excluded from the [id number]. The pelvic ring appears to be intact. IMPRESSION: Immediately status post revision of right hip arthroplasty from previous hemiarthroplasty to total r ight hip replacement arthroplasty now.
--- NOTE | 2019-11-06 11:52 | RAD ---
Radiograph right hip one view: 11/06/2019 HISTORY: 74-year-old female with dislocation of right hip arthroplasty. FINDINGS: Crosstable lateral view. There was dislocation of right hip hemiarthroplasty on 11/04/2019, which was successfully reduced on t he image of 11/05/2019. Now, that right-sided hardware has been removed, and replaced with new hardware. There is a new aceta bular cup anchored to the pelvis with screw. This articulates with a new femoral head and neck prosthesis with stem that reaches junction between proximal and middle thirds of femoral diaphysis. T here are new right lateral skin jacquelin. IMPRESSION: Immediately status post revision of right hip arthroplasty from previous hemiarthroplasty to total r ight hip replacement arthroplasty now.
--- NOTE | 2019-11-06 13:18 | OP ---
DATE OF PROCEDURE: 11/06/2019 INDICATIONS FOR PROCEDURE: Ms. Palacios is a 74-year-old female, who has fractured her femoral neck. Approximately 1 month ago, she underwent hemiarthroplasty of the hip with a bipolar prosthesis. Unfortunately, she has had two dislocations of this hip prosthesis. She has had closed reduction, but has been indicated for conversion to total hip arthroplasty with a dual mobility cup to try and increase her stability so that she does not have ongoing problems with her hip. She is aware of this and wants to proceed. Risks have been reviewed. She is at risk for infection, further hardware complication, loosening, nerve or vascular injury, and others. IMPLANTS: [place] Trident Tritanium acetabular shell size 52 mm, 42 mm MDM liner, size #6 cemented Accolade high-offset stem, size 28 mm +8 Saul femoral head. DESCRIPTION OF PROCEDURE: Ms. Palacios was identified in the preoperative holding area. Her correct extremity was marked. She was carried to the operating room. She was positioned supine. General anesthesia was induced. A multidisciplinary time-out was performed. The right lower extremity was prepped and draped in sterile fashion. We began the procedure with a posterior approach to the hip. We dissected down through the subcutaneous tissues to the fascia, which was opened. We then exposed the underlying short external rotators of the hip. We sent some fluid for cell count as well as cultures and Gram-stain. There was a large amount of serous-appearing fluid. At this point, we dislocated the underlying hemiarthroplasty. We removed the bipolar shell. We then attached an extractor to the stem and removed the stem. We exposed the underlying acetabulum with appropriate retractors. We removed the cartilage with a curette. We then began reaming from a size 44 up to a size 51 mm reamer. This gave good cancellous bone. We then impacted a 52 mm cup. We were happy with our fit and stability. We checked the anteversion. We then placed a single screw, which was a good purchase. At this point, we impacted our metallic liner. We then exposed the femur and began preparation of the femur. We broached from a size 3 up to a size 6. This was appropriate fit. We thoroughly irrigated with copious lavage. We then mixed cement on the back table and added 2 g of vancomycin as well as 2 g of tobramycin to the cement. We implanted our femoral stem and held this in appropriate anteversion. Once the cement was fully hardened, we impacted our final Saul MDM shell and head, which was +8 length. Again, we reduced the hip. We tested stability and leg length. There was very good stability with no ability to dislocate and range of motion. Leg length appeared to be equal. We thoroughly irrigated once more. We then closed the short external rotators and capsule with a #5 Ethibond suture through drill holes. We followed this with layered closure including the fascia. Job ID: [id number]
[2019-11-06 14:11] LABS: BF Segmented Neutrophils 86 %; Cell Count Non Hematic 10 %; Lymphocytes 4 %
[2019-11-06] MEDS: Cyclobenzaprine 10 MG TAB PO PRN ×2 (14:37→21:56)
[2019-11-06] MEDS: CEFAZOLIN 2 GM in Premix Bag 1 BAG IVPB SCH ×2 (14:38→21:56)
--- NOTE | 2019-11-06 18:27 | PRG ---
DATE OF SERVICE: 11/06/2019 SUBJECTIVE: The patient was seen on the surgical floor after returning from PACU. The patient is postop day #0 status post revision of her right hip with total hip arthroplasty. The patient's pain is well controlled postop. The patient is tolerating her diet. The patient's blood pressure is mildly soft postop. OBJECTIVE: VITAL SIGNS: Blood pressure 98/64, pulse 88, respirations 18, SpO2 of 95% on room air. GENERAL: Elderly female, awake, alert, no distress. RESPIRATORY: Equal chest rise and fall. Respirations are even and nonlabored. CARDIAC: Regular rate. Regular rhythm. EXTREMITIES: Moves all extremities. Neurovascularly intact x4. NEUROLOGIC: GCS 15. LABORATORY DATA: WBC 5.6, RBC 2.39, hemoglobin 7.9, hematocrit 24.4, platelets 435. Sodium 134, potassium 3.4, chloride 98, BUN 13, creatinine 1.25, estimated GFR 42, glucose 79, calcium 8.8, phosphorus 3.8, magnesium 2.1. DIAGNOSTIC DATA: There are no new diagnostics to review today. IMPRESSION: 1. Status post right prosthetic hip dislocation. 2. Postop revision of right hip total arthroplasty. 3. Hyponatremia, chronic. 4. Anemia, chronic. 5. Hypokalemia. PLAN: Continue supportive care and pain regimen. Continue regular diet as tolerated. Continue iron and vitamin C for anemia. Replace electrolytes. Continue free water restriction to 1 L a day for hyponatremia. The patient may have unlimited Gatorade. Continue PT and OT to evaluate and treat postop. We will repeat labs in the morning. If the patient's hemoglobin is stable, we will place the patient on oral VTE prophylaxis. The patient will most likely go back to [facility] in the next couple of days. The plan was discussed with the attending, who agrees. Job ID: [id number]
[2019-11-06] MEDS: traMADol HCl 50 MG TAB PO PRN (20:05)
[2019-11-07] MEDS: Acetaminophen 325 MG TAB PO SCH ×5 (00:43→23:50)
[2019-11-07] MEDS: traMADol HCl 50 MG TAB PO PRN (01:24)
[2019-11-07] MEDS: Ibuprofen 600 MG TAB PO SCH ×3 (05:15→21:21)
[2019-11-07 05:27] LABS: Hemoglobin 6.7 g/dL (12.0-16.0); Mean Corpuscular HGB CONC 32.2 g/dL (32.0-36.0); Mean Platelet Volume 6.1 fL (7.4-10.4); Platelet Count 440 thou/uL (130-400); RBC Distribution Width 13.7 % (11.5-14.5); Red Blood Cell (RBC) Count 2.04 mill/uL (4.20-5.40); White Blood Cell (WBC) Count 6.9 thou/uL (4.8-10.8)
[2019-11-07 05:53] LABS: Anion Gap 11 mmol/L (10-20); BUN (Urea Nitrogen) 14 mg/dL (9.8-20.1); Calc. Creatinine Clearance 48 mL/min (70-130); Calcium 8.3 mg/dL (7.8-10.44); Carbon Dioxide 27 mmol/L (23-31); Chloride 100 mmol/L (98-107); Estimated GFR-MDRD 41; Glucose 108 mg/dL (83-110); Magnesium 1.8 mg/dL (1.6-2.6); Sodium 134 mmol/L (136-145)
[2019-11-07] MEDS ORDERED: Magnesium Sulfate 2 GM in Sodium Chloride 0.9% 100 ML IVPB SCH ×2 (07:30→13:45)
[2019-11-07] MEDS: Ferrous Sulfate 325 MG TAB PO SCH ×2 (08:45→17:04)
[2019-11-07] MEDS: Famotidine 20 MG TAB PO SCH ×2 (08:45→21:21)
[2019-11-07] MEDS: Ascorbic Acid 500 mg Chewable Tablet PO SCH ×2 (08:45→21:21)
[2019-11-07] MEDS: Propranolol 10 MG TAB PO SCH ×3 (08:45→21:23)
--- NOTE | 2019-11-07 09:31 | PRG ---
DATE OF SERVICE: 11/07/2019 SUBJECTIVE: Lizeth is a 74-year-old female, postop day 1 from her right total hip arthroplasty. Intraoperatively, we found a large serous effusion, which was hemorrhagic in nature. Cultures were obtained, as well as the fluid was sent for Gram stain, culture and sensitivity, as well as cell count with diff. Apparently, 154 white cells were seen. Red blood cells were too numerous to count. Microbiology is still pending. No organisms identified on Gram stain at this point. Her white blood cell count is now 6.9, hemoglobin 6.7 with hematocrit of 20.9. OBJECTIVE: VITAL SIGNS: Temperature 98, pulse 96, blood pressure is 95/57, respiratory rate is 18, O2 sats 96% on room air. GENERAL: She is alert, responsive, and appropriate with examiner, talkative and pleasant. EXTREMITIES: Her incision is clean. No strike through. No erythema. Leg lengths are near equal. No malrotation or shortening appreciated. IMPRESSION: This is a 74-year-old female, postop day 1 from revision right total hip arthroplasty from a conversion from hemiarthroplasty. PLAN: We will continue to follow, pending cultures. Continue antibiotics. Weightbear as tolerated. Job ID: [id number]
[2019-11-07] MEDS ORDERED: Hydrocortisone Sod Succ/PF 250 mg/2 ml Vial SLOW IVP SCH (12:15)
--- NOTE | 2019-11-07 12:35 | PRG ---
DATE OF SERVICE: 11/07/2019 SUBJECTIVE: The patient was seen during morning rounds. Awake, alert, no distress, sitting up in bed. The patient had no overnight events. The patient's pain is well controlled at this time. The patient has not gotten up with Physical Therapy yet. The patient is tolerating a diet. The patient's hemoglobin this morning was low. OBJECTIVE: VITAL SIGNS: Temperature 98.0, pulse 96, blood pressure 79/45, respirations 18, SpO2 of 96% on room air. GENERAL: Well-appearing elderly female, awake, alert, no distress. RESPIRATORY: Equal chest rise and fall. Bilateral breath sounds clear. ABDOMEN: Soft, nontender, nondistended. CARDIAC: Regular rate. Regular rhythm. EXTREMITIES: Neurovascularly intact x4. GCS 15. LABORATORY DATA: WBC 6.9, RBC 2.04, hemoglobin 6.7, hematocrit 20.9, platelets 440. Sodium 134, potassium 4.0, chloride 100, BUN 14, creatinine 1.27, estimated GFR 41, glucose 108, calcium 8.3, phosphorus 4.0, magnesium 1.8. DIAGNOSTIC DATA: There are no new diagnostics to review today. IMPRESSION: 1. Status post right prosthetic hip dislocation. 2. Postop day #1, revision of her right hip with total arthroplasty. 3. Hyponatremia, chronic. 4. [id number] anemia. 5. Hypokalemia, resolved. PLAN: Continue supportive care and pain regimen. Continue regular diet as tolerated. Continue iron and vitamin C for anemia. We will transfuse the patient with 1 unit of packed red blood cells today as her hemoglobin has dropped. We will also obtain a cortisol level as the patient's blood pressure has been soft this morning. We will continue a free water restriction to 1 L a day for her hyponatremia. The patient may continue to have unlimited Gatorade. Continue physical and occupational therapy. Once the patient is up and moving, we will discontinue her Rojas catheter. Once the patient's hemoglobin is stable, we will place the patient on oral VTE prophylaxis. For now, the patient will be on mechanical VTE prophylaxis. The plan was discussed with the attending, who agrees. Job ID: [id number]
[2019-11-07] MEDS ORDERED: Magnesium 2 GM/50 ML 2 GM in Premix Bag 1 BAG IVPB SCH (14:00)
[2019-11-07] MEDS: Hydrocortisone Sod Succ/PF 100 mg/2 ml Vial IVP SCH ×2 (17:05→23:50)
[2019-11-08 05:50] LABS: Hemoglobin 7.2 g/dL (12.0-16.0); Mean Corpuscular Hemoglobin 31.4 pg (27.0-31.0); Mean Corpuscular Volume 98.2 fL (78.0-98.0); Mean Platelet Volume 6.3 fL (7.4-10.4); Platelet Count 390 thou/uL (130-400); RBC Distribution Width 14.4 % (11.5-14.5); Red Blood Cell (RBC) Count 2.28 mill/uL (4.20-5.40); White Blood Cell (WBC) Count 6.3 thou/uL (4.8-10.8)
[2019-11-08 06:24] LABS: Anion Gap 11 mmol/L (10-20); BUN (Urea Nitrogen) 19 mg/dL (9.8-20.1); Calc. Creatinine Clearance 39 mL/min (70-130); Calcium 8.2 mg/dL (7.8-10.44); Carbon Dioxide 25 mmol/L (23-31); Chloride 96 mmol/L (98-107); Estimated GFR-MDRD 33; Glucose 120 mg/dL (83-110); Phosphorus 4.1 mg/dL (2.3-4.7); Potassium 4.3 mmol/L (3.5-5.1); Sodium 128 mmol/L (136-145)
[2019-11-08] MEDS: Hydrocortisone Sod Succ/PF 100 mg/2 ml Vial IVP SCH ×4 (06:38→23:31)
[2019-11-08] MEDS: Acetaminophen 325 MG TAB PO SCH ×4 (06:38→23:31)
[2019-11-08] MEDS: Ibuprofen 600 MG TAB PO SCH (06:38)
--- NOTE | 2019-11-08 07:07 | PRG ---
DATE OF SERVICE: 11/08/2019 SUBJECTIVE: The patient remains on the surgical floor. She is status post posterior hip dislocation of a right hip hemiarthroplasty x2. The patient underwent closed reduction of her right hip hemiarthroplasty dislocation and has undergone revision to a total hip arthroplasty. The patient tolerated these procedures well. She has begun working with physical and occupational therapy, though she is admittedly apprehensive after having 2 dislocations. She told me that she feels responsible as she thought that she was trying to move too quickly and this time she states that she is going to take it slower. Otherwise, she reports her pain is controlled. She is tolerating a diet. PHYSICAL EXAMINATION: VITAL SIGNS: Stable. The patient is afebrile. GENERAL: The patient is resting comfortably in bed. She is awake, conversant, and appropriate. LUNGS: Respirations nonlabored. Lungs are clear to auscultation bilaterally. HEART: Regular rate and rhythm. ABDOMEN: Soft with active bowel sounds. EXTREMITIES: Neurovascular intact x4. ASSESSMENT: 1. Status post right prosthetic hip dislocation. 2. Postop day 1 status post revision of right hip with total hip arthroplasty. 3. Acute on chronic hyponatremia. 4. Acute on chronic anemia. 5. Adrenal insufficiency, cortisol 1.00. PLAN: 1. Will be to continue supportive care. Monitor her electrolytes. She has a free water restriction with unlimited Gatorade. We have added salt tablets. We will encourage physical and occupational therapy and discuss placement, which will likely be decided on Saturday. 2. The patient is started on hydrocortisone for her adrenal insufficiency. Job ID: [id number]
[2019-11-08] MEDS: traMADol HCl 50 MG TAB PO PRN ×3 (08:19→23:31)
[2019-11-08] MEDS: Sodium Chloride 1 GM TAB PO SCH ×2 (09:15→19:55)
[2019-11-08] MEDS: Ferrous Sulfate 325 MG TAB PO SCH ×2 (09:15→16:47)
[2019-11-08] MEDS: Ascorbic Acid 500 mg Chewable Tablet PO SCH ×2 (09:15→19:55)
[2019-11-08] MEDS: Famotidine 20 MG TAB PO SCH (09:15)
[2019-11-08] MEDS: Propranolol 10 MG TAB PO SCH ×3 (09:16→19:53)
[2019-11-08] MEDS ORDERED: Sodium Chloride 0.9% 1,000 ML IV SCH (12:30)
--- NOTE | 2019-11-08 14:47 | PRG ---
DATE OF SERVICE: 11/08/2019 SUBJECTIVE: The patient was seen during morning rounds on the surgical floor. The patient is awake, alert, in no distress sitting up in hospital bed. The patient has not worked with Physical Therapy yet. The patient is waiting for them to come by and work with her. She did have a little bit of pain earlier, but has resolved with tramadol. The patient had no overnight events. She is postop day #2, status post revision of her right hip. OBJECTIVE: VITAL SIGNS: Blood pressure 122/75, temperature 98.6, pulse 84, respirations 16, SpO2 of 96% on room air. GENERAL: A well-appearing elderly female, awake, alert, in no distress. RESPIRATORY: Equal chest rise and fall, respirations even and nonlabored. EXTREMITIES: Neurovascularly intact x4. NEURO: GCS 15. LABORATORY DATA: WBC 6.3, RBC 2.28, hemoglobin 7.2, hematocrit 22.4, platelets 370, sodium 128, potassium 4.3, chloride 96, BUN 19, creatinine 1.56, estimated GFR 33, glucose 120, calcium 8.2, phosphorus 4.1, magnesium 2.0. DIAGNOSTICS: There are no new diagnostics. IMPRESSION: 1. Status post right hip dislocation. 2. Postop day #2 revision of her right hip with total arthroplasty. 3. Hyponatremia. 4. Acute on chronic anemia. 5. Chronic kidney disease, worsening. PLAN: Continue supportive care. Pain regimen. Continue diet as tolerated. Free water restriction for hyponatremia and we will add salt tablets. Physical and occupational therapy. Chemical VTE prophylaxis. We will hold off on chemical VTE prophylaxis until patient's hemoglobin is stable. Job ID: [id number]
[2019-11-09] MEDS: Hydrocortisone Sod Succ/PF 100 mg/2 ml Vial IVP SCH (06:32)
[2019-11-09] MEDS: Acetaminophen 325 MG TAB PO SCH ×2 (06:32→11:57)
[2019-11-09] MEDS: traMADol HCl 50 MG TAB PO PRN (06:32)
[2019-11-09 07:05] LABS: Hemoglobin 7.8 g/dL (12.0-16.0); Mean Corpuscular HGB CONC 32.2 g/dL (32.0-36.0); Mean Corpuscular Hemoglobin 32.2 pg (27.0-31.0); Mean Platelet Volume 6.3 fL (7.4-10.4); Platelet Count 460 thou/uL (130-400); RBC Distribution Width 14.1 % (11.5-14.5); Red Blood Cell (RBC) Count 2.42 mill/uL (4.20-5.40); White Blood Cell (WBC) Count 7.1 thou/uL (4.8-10.8)
[2019-11-09 07:07] LABS: Anion Gap 12 mmol/L (10-20); BUN (Urea Nitrogen) 20 mg/dL (9.8-20.1); Calc. Creatinine Clearance 44 mL/min (70-130); Calcium 8.3 mg/dL (7.8-10.44); Carbon Dioxide 23 mmol/L (23-31); Chloride 99 mmol/L (98-107); Estimated GFR-MDRD 38; Glucose 102 mg/dL (83-110); Magnesium 2.1 mg/dL (1.6-2.6); Phosphorus 3.4 mg/dL (2.3-4.7); Potassium 3.9 mmol/L (3.5-5.1); Sodium 130 mmol/L (136-145)
[2019-11-09] MEDS: Sodium Chloride 1 GM TAB PO SCH (08:46)
[2019-11-09] MEDS: Propranolol 10 MG TAB PO SCH ×2 (08:47→14:40)
[2019-11-09] MEDS: Ferrous Sulfate 325 MG TAB PO SCH (08:47)
[2019-11-09] MEDS ORDERED: Famotidine 20 MG TAB PO SCH (09:00)
[2019-11-09] MEDS ORDERED: Aspirin 81 mg Enteric Coated Tablet PO SCH (09:00)
[2019-11-09] MEDS ORDERED: Hydrocortisone Sod Succ/PF 100 mg/2 ml Vial IVP SCH (09:00)
[2019-11-09 11:21] VITALS: BP 118/73; TEMP 98.4
--- NOTE | 2019-11-09 13:40 | PRG ---
DATE OF SERVICE: 11/09/2019 SUBJECTIVE: The patient is status post fall with right hip prosthesis dislocation that required revision of right hip total arthroplasty. She is postop day 3. The patient has no complaints as far as pain and is working with PT. OBJECTIVE: VITAL SIGNS: Temperature 98.4, heart rate 88, respiratory rate 18, O2 saturation 97% on room air, blood pressure 118/73. GENERAL: The patient is a well-appearing, elderly female, awake, alert, in no acute distress. RESPIRATORY: Equal chest rise and fall. Respirations are even and nonlabored. EXTREMITIES: Neurovascularly intact x4. NEUROLOGIC: Awake and alert. GCS is 15. LABORATORY DATA: Hemoglobin stable at 7.8. Creatinine slightly improved from 1.56 to 1.38. The patient is mildly hyponatremic at 130. Bacterial culture shows no growth at 3 days. IMAGING STUDIES: None. ASSESSMENT: 1. Status post right hip dislocation. 2. Postoperative day 3, revision of right hip with total arthroplasty. 3. Hyponatremia. 4. Acute on chronic anemia. 5. Chronic kidney disease, unchanged. PLAN: Continue supportive care. We will work on placement in rehab. Free water restriction for hyponatremia was done and salt tablets were given. Continue chemical VTE prophylaxis once hemoglobin is stable. This patient was seen and evaluated with Dr. Henderson, who agrees with the assessment and plan. Job ID: [id number] [facility]
--- NOTE | 2019-11-09 15:47 | DIS ---
DATE OF ADMISSION: 11/06/2019 DATE OF DISCHARGE: 11/09/2019 CONSULTS: Orthopedic Surgery, Dr. Michelle. PROCEDURES: On 11/05/2019, closed reduction of right hip hemiarthroplasty dislocation by Dr. Michelle. On 11/06/2019, status post conversion to total hip arthroplasty by Dr. Cardoso. PRIMARY DIAGNOSES: 1. Status post right prosthetic hip dislocation, postop total hip arthroplasty. 2. Chronic hyponatremia. 3. Acute postop anemia. SECONDARY DIAGNOSIS: Chronic anemia. DISCHARGE MEDICATIONS: 1. Tylenol 1000 mg p.o. q.6 hours. 2. Vitamin C 500 mg p.o. b.i.d. with meals. 3. Aspirin 81 mg p.o. b.i.d. for at least 30 days for VTE prophylaxis. 4. Flexeril 5 mg p.o. 3 times a day p.r.n. muscle spasms. 5. Ferrous sulfate 325 mg p.o. b.i.d. with meals. 6. Inderal 10 mg p.o. 3 times a day. 7. Tramadol 50 mg 1 to 2 tabs p.o. q.6 hours p.r.n. pain. 8. Lisinopril 5 mg p.o. daily. 9. Remeron 15 mg p.o. at bedtime. 10. Protonix 20 mg p.o. daily. No discontinued medications. HISTORY OF PRESENT ILLNESS AND HOSPITAL COURSE: This is a 74-year-old lady, who presented to the emergency room with a right prosthetic hip dislocation. The patient underwent right hip hemiarthroplasty and was discharged on 10/22/2019 to [facility] for continued physical and occupational therapy. The patient had a periprosthetic hip dislocation postop and had a closed reduction which seem to stay in place. The patient was found to have a posterior prosthetic dislocation after she was transferring herself from her bed to wheelchair as she felt a pop and had extreme pain in the right hip. The patient's pain was well controlled pre and postop. The patient did have an episode of some hypotension in which her blood pressure medications were held and was started on hydrocortisone for acute adrenal insufficiency. The patient's blood pressure did improve. The patient was able to participate with physical therapy postop. The patient tolerated a regular diet. On the day of discharge, the patient was examined and had no complaints. Her vital signs were stable and her exam was unremarkable including cardiopulmonary and GI exam. The patient was started on aspirin for VTE prophylaxis and her hemoglobin was stable. The patient is to continue her iron and vitamin C for chronic anemia. The patient did have a drop in her hemoglobin, postop day 1 and received 1 unit of packed red blood cells. The patient was deemed stable for discharge to inpatient rehab for continued physical and occupational therapy. DISPOSITION: Stable. DISCHARGE INSTRUCTIONS: 1. Location: Inpatient rehab. 2. Diet: Regular diet as tolerated with Ensure supplement 3 times a day. 3. Activity: Weightbearing as tolerated. 4. Followup: Follow up with Orthopedic Surgery. Job ID: [id number]
[2019-11-09] MEDS ORDERED: Ascorbic Acid 500 mg Chewable Tablet PO SCH (17:00)
== END 2019-11-09 16:15 | DRG 467 ==
LOC: ERS 20:09 → 2SE 11-05 01:16 → INTOOBSV 11-05 01:39 → 2SE 11-05 01:39 → SURG A 11-05 12:42 → SURG B 11-05 16:24 → OBSVTOIN 11-06 10:21
PROVIDERS: ADMIT Specialist; ATTEND Specialist
PROC: 0SWRXJZ Revision of Synthetic Substitute in Right Hip Joint, Femoral Surface, External Approach (ICD-10-PCS; 2019-11-05)
PROC: 0SR9019 Replacement of Right Hip Joint with Metal Synthetic Substitute, Cemented, Open Approach (ICD-10-PCS; principal; 2019-11-06)
PROC: 0SP90JZ Removal of Synthetic Substitute from Right Hip Joint, Open Approach (ICD-10-PCS; 2019-11-06)
PROC: 30233N1 Transfusion of Nonautologous Red Blood Cells into Peripheral Vein, Percutaneous Approach (ICD-10-PCS; 2019-11-07)
DX: T84.020A Dislocation of internal right hip prosthesis, initial encounter (principal); E87.1 Hypo-osmolality and hyponatremia; D62 Acute posthemorrhagic anemia; E27.40 Unspecified adrenocortical insufficiency; Y83.1 Surgical operation with implant of artificial internal device as the cause of abnormal reaction of the patient, or of later complication, without mention of misadventure at the time of the procedure; Z11.59 Encounter for screening for other viral diseases; I95.9 Hypotension, unspecified; K21.9 Gastro-esophageal reflux disease without esophagitis; K74.60 Unspecified cirrhosis of liver; J44.9 Chronic obstructive pulmonary disease, unspecified; M79.7 Fibromyalgia; F41.9 Anxiety disorder, unspecified; F32.9 Major depressive disorder, single episode, unspecified; E83.42 Hypomagnesemia; M10.9 Gout, unspecified; N18.9 Chronic kidney disease, unspecified; D63.1 Anemia in chronic kidney disease; G89.29 Other chronic pain; E87.6 Hypokalemia; Z79.899 Other long term (current) drug therapy; Z90.49 Acquired absence of other specified parts of digestive tract; Z90.710 Acquired absence of both cervix and uterus; Z87.891 Personal history of nicotine dependence; Z79.82 Long term (current) use of aspirin
CPT/HCPCS: 36415; 36430; 51702; 51798; 71045; 72170; 76000; 80048; 80053; 82533; 83735; 84100; 85025; 85027; 85060; 85610; 85730; 86850; 86900; 86901; 87070; 87205; 87635; 89051; 96365; 96366; 96374; 96375; 96376; C1713; C1776; G0378; J0690; J1100; J1720; J1885; J2270; J2405; J2704; J3010; J3260; J3370; J3475; J7050; P9016; U0003

== ENCOUNTER 2020-06-13 08:24 | Outpatient (CLI) | payer MEDICARE | END 2020-06-13 08:25 | disposition home or self-care (01) | LOC: BICULT 08:24 | PROVIDERS: ATTEND Family Medicine | DX: Z12.2 Encounter for screening for malignant neoplasm of respiratory organs (principal); F17.211 Nicotine dependence, cigarettes, in remission; K74.60 Unspecified cirrhosis of liver; K80.20 Calculus of gallbladder without cholecystitis without obstruction | CPT/HCPCS: 71271; 76705 ==

== ENCOUNTER 2020-06-13 08:43 | Outpatient (CLI) | payer MEDICARE | END 2020-06-13 08:44 | disposition home or self-care (01) | LOC: BICMAMMO 08:43 | PROVIDERS: ATTEND Family Medicine | DX: Z13.820 Encounter for screening for osteoporosis (principal); M81.0 Age-related osteoporosis without current pathological fracture | CPT/HCPCS: 77080 ==

== ENCOUNTER 2021-10-11 14:38 | Observation (INO) | payer MEDICARE ==
[~2021-10-11 14:38] MED LIST changes: +ISOVUE-370 76%-LOCM 1 ML ONE; -Iopamidol 300 61% 100 ML VIAL FS ONE
[2021-10-11 15:07] LABS: #Basophils 0.1 thou/uL (0.0-0.2); #Eosinphils 0.1 thou/uL (0.0-0.7); #Lymphocytes 1.5 thou/uL (1.20-3.40); #Monocytes 0.9 thou/uL (0.11-0.59); #Neutrophils 4.1 thou/uL (1.40-6.50); %Basophils 1.4 % (0.0-1.0); %Lymphocytes 22.6 % (21.0-51.0); %Monocytes 13.5 % (0.0-10.0); %Neutrophils 61.6 % (42.0-75.0); Hemoglobin 12.8 g/dL (12.0-16.0); Mean Corpuscular HGB CONC 33.6 g/dL (32.0-36.0); Mean Corpuscular Hemoglobin 37.4 pg (27.0-31.0); Mean Platelet Volume 7.3 fL (7.4-10.4); Platelet Count 234 thou/uL (130-400); RBC Distribution Width 15.2 % (11.5-14.5); Red Blood Cell (RBC) Count 3.42 mill/uL (4.20-5.40); White Blood Cell (WBC) Count 6.7 thou/uL (4.8-10.8)
[2021-10-11 15:22] LABS: MDiff Complete? YES; Macrocytosis MODERATE=16-30 cells (100X) (0-5/hpf); Platelet Morphology Comment Appears Adequate; Polychromasia SLIGHT = 2-3 cells (100X) (0-2/hpf)
[2021-10-11 15:32] LABS: ALT (SGPT) 28 U/L (8-55); AST (SGOT) 124 U/L (5-34); Albumin 3.9 g/dL (3.4-4.8); Alkaline Phosphatase 171 U/L (40-110); Anion Gap 22 mmol/L (10-20); BUN (Urea Nitrogen) 10 mg/dL (9.8-20.1); Bilirubin, Total 2.6 mg/dL (0.2-1.2); Calc. Creatinine Clearance 0 mL/min (70-130); Calcium 9.2 mg/dL (7.8-10.44); Carbon Dioxide 34 mmol/L (23-31); Chloride 83 mmol/L (98-107); Estimated GFR 52; Globulin 4.1 g/dL (2.4-3.5); Glucose 96 mg/dL (83-110); Lipase 27 U/L (8-78); Potassium 3.1 mmol/L (3.5-5.1); Sodium 136 mmol/L (136-145)
[2021-10-11] MEDS ORDERED: Potassium Chloride 20 MEQ TAB ONE (17:45)
[2021-10-11 18:02] LABS: CK (CPK) 40 U/L (29-168); Magnesium 2.2 mg/dL (1.6-2.6)
[2021-10-11] MEDS ORDERED: Potassium Chloride 40 MEQ in Sodium Chloride 0.9% 250 ML 250 ML IVPB SCH (18:15)
[2021-10-11] MEDS ORDERED: Ondansetron PF 4 MG/2 ML Vial IVP PRN (21:08)
[2021-10-11] MEDS ORDERED: Ondansetron ODT 4 MG TAB PO PRN (21:08)
[2021-10-11] MEDS ORDERED: Lorazepam 2 MG/ML VIAL IM PRN (21:35)
[2021-10-11] MEDS ORDERED: Lorazepam 1 MG TAB PO PRN (21:35)
[2021-10-11 22:58] LABS: Phosphorus 3.1 mg/dL (2.3-4.7)
[2021-10-11 23:00] LABS: INR-International Normal Ratio 1.1; PTT 31.6 sec (22.9-36.1); Prothrombin Time 14.8 sec (12.0-14.7)
[2021-10-11] MEDS: Lactated Ringer's 1,000 ML IV SCH (23:23)
[2021-10-11 23:25] VITALS: BMI 31.4
[2021-10-12] MEDS ORDERED: Melatonin 3 MG TAB PO PRN (00:57)
[2021-10-12] MEDS ORDERED: Gabapentin 300 MG CAP PO SCH ×2 (01:00→21:00)
[2021-10-12] MEDS: Lactated Ringer's 1,000 ML IV SCH (05:18)
[2021-10-12 05:48] LABS: #Eosinphils 0.1 thou/uL (0.0-0.7); #Lymphocytes 1.4 thou/uL (1.20-3.40); #Monocytes 0.9 thou/uL (0.11-0.59); #Neutrophils 5.7 thou/uL (1.40-6.50); %Basophils 0.5 % (0.0-1.0); %Eosinophils 0.8 % (0.0-10.0); %Lymphocytes 17.7 % (21.0-51.0); %Monocytes 10.6 % (0.0-10.0); %Neutrophils 70.4 % (42.0-75.0); Hemoglobin 11.1 g/dL (12.0-16.0); Mean Corpuscular HGB CONC 33.2 g/dL (32.0-36.0); Mean Corpuscular Hemoglobin 37.2 pg (27.0-31.0); Mean Platelet Volume 7.3 fL (7.4-10.4); Platelet Count 177 thou/uL (130-400); RBC Distribution Width 15.1 % (11.5-14.5); Red Blood Cell (RBC) Count 2.99 mill/uL (4.20-5.40); White Blood Cell (WBC) Count 8.1 thou/uL (4.8-10.8)
[2021-10-12 06:09] LABS: ALT (SGPT) 23 U/L (8-55); AST (SGOT) 107 U/L (5-34); Albumin 3.4 g/dL (3.4-4.8); Alkaline Phosphatase 134 U/L (40-110); Anion Gap 16 mmol/L (10-20); BUN (Urea Nitrogen) 13 mg/dL (9.8-20.1); Bilirubin, Total 2.7 mg/dL (0.2-1.2); Calc. Creatinine Clearance 53 mL/min (70-130); Calcium 8.7 mg/dL (7.8-10.44); Carbon Dioxide 32 mmol/L (23-31); Chloride 89 mmol/L (98-107); Estimated GFR 50; Globulin 3.4 g/dL (2.4-3.5); Glucose 106 mg/dL (83-110); Potassium 3.3 mmol/L (3.5-5.1); Protein, Total 6.8 g/dL (5.8-8.1); Sodium 134 mmol/L (136-145)
[2021-10-12] MEDS ORDERED: Potassium Chloride 20 MEQ TAB PO SCH (07:30)
[2021-10-12] MEDS: Pregabalin 50 MG CAP PO SCH ×2 (08:16→18:35)
[2021-10-12] MEDS ORDERED: Enoxaparin Sodium 40 MG/0.4 ML SYRINGE SC SCH (09:00)
[2021-10-12] MEDS ORDERED: Atorvastatin Calcium 40 MG TAB PO SCH (09:00)
[2021-10-12] MEDS ORDERED: Folic Acid 1 MG TAB PO SCH (09:00)
[2021-10-12] MEDS ORDERED: Multivit, Therapeutic 1 TAB PO SCH (09:00)
[2021-10-12 13:29] LABS: Bilirubin Negative (Negative); Blood, Urine 1+ (Negative); Clarity Turbid (Clear); Glucose, Urine (Dipstick) Normal (Negative); Ketone, Urine 10 mg/dL (Negative); Leukocyte 500 Leu/uL (Negative); Nitrite Negative (Negative); Protein, Urine (Dipstick) 30 mg/dL (Neg-Trace); Specific Gravity, Urine 1.049 (1.002-1.036); Squamous Epithelial 0-3 HPF (0-3); WBC/HPF Greater than 50 HPF (0-3)
[2021-10-12 13:37] LABS: Bacteria/HPF 4+ HPF (None Seen)
[2021-10-12] MEDS ORDERED: Fosfomycin 3 GM/Packet PO SCH (15:30)
[2021-10-12 17:24] VITALS: BP 122/81; TEMP 98.9
[2021-10-12] MEDS ORDERED: Mirtazapine 15 MG Soltab PO SCH (21:00)
[2021-10-12] MEDS ORDERED: Nitrofurantoin Monohyd/M-Cryst 100 MG CAP PO SCH (21:00)
[2021-10-12] MEDS ORDERED: Lorazepam 1 MG TAB PO PRN (21:35)
[2021-10-13] MEDS ORDERED: Lorazepam 1 MG TAB PO PRN (21:35)
[2021-10-14] MEDS ORDERED: Lorazepam 0.5 MG TAB PO PRN (21:35)
[2021-10-14] MEDS ORDERED: Thiamine 100 MG TAB PO SCH (21:45)
== END 2021-10-12 19:44 | disposition home or self-care (01) ==
LOC: ERS 14:38 → T4-B 20:25
PROVIDERS: ADMIT Family Medicine; ATTEND Family Medicine
DX: I95.9 Hypotension, unspecified (principal); K70.30 Alcoholic cirrhosis of liver without ascites; K29.20 Alcoholic gastritis without bleeding; K76.0 Fatty (change of) liver, not elsewhere classified; J44.9 Chronic obstructive pulmonary disease, unspecified; M79.7 Fibromyalgia; K27.9 Peptic ulcer, site unspecified, unspecified as acute or chronic, without hemorrhage or perforation; Z20.822 Contact with and (suspected) exposure to COVID-19; I12.9 Hypertensive chronic kidney disease with stage 1 through stage 4 chronic kidney disease, or unspecified chronic kidney disease; N18.30 Chronic kidney disease, stage 3 unspecified; E87.6 Hypokalemia; Z79.899 Other long term (current) drug therapy; Z66 Do not resuscitate
CPT/HCPCS: 71045; 74177; 80053 ×2; 82550; 83605; 83690; 83735; 83880; 84100; 84484; 85025 ×2; 85610; 85730; 87040; 87077; 87086; 87186; 93005; 93306; 96360; 96361; 99285; U0003; U0005; 36415; 81003; 81015; 96372; 96375; G0378; J1650; J3480; J7050; J7120; Q9966

== ENCOUNTER 2021-10-14 15:30 | Inpatient (IN) | payer MEDICARE ==
[2021-10-14] MEDS ORDERED: MULTIVITAMINS IV SCH (16:30)
[2021-10-14] MEDS ORDERED: [UNRECOGNIZED DRUG - OTHER] IV SCH (16:30)
[2021-10-14] MEDS ORDERED: FOLIC ACID IV SCH (16:30)
[2021-10-14] MEDS ORDERED: THIAMINE HCL IV SCH (16:30)
[2021-10-14 16:35] LABS: Bacteria/HPF 3+ HPF (None Seen); Bilirubin Negative (Negative); Blood, Urine Negative (Negative); Clarity Clear (Clear); Glucose, Urine (Dipstick) Normal (Negative); Ketone, Urine 10 mg/dL (Negative); Leukocyte 250 Leu/uL (Negative); Nitrite Negative (Negative); Protein, Urine (Dipstick) Negative (Neg-Trace); RBC/HPF None Seen HPF (0-3); Specific Gravity, Urine 1.008 (1.002-1.036); Squamous Epithelial None Seen HPF (0-3); WBC/HPF Greater than 50 HPF (0-3)
[2021-10-14] MEDS ORDERED: cefTRIAXone\\ROCEPHIN 1 GM VIAL ONE (16:43)
[2021-10-14 16:47] LABS: Amphetamine Not Detected (NotDetected); Barbiturates Screen Not Detected (NotDetected); Benzodiazepine Screen Not Detected (NotDetected); Cocaine Metabolite Screen Not Detected (NotDetected); Methadone Not Detected (NotDetected); Methamphetamine Not Detected (NotDetected); Opiate Screen Not Detected (NotDetected); Oxycodone Screen Not Detected (NotDetected); Phencyclidine (PCP) Not Detected (NotDetected); THC/Cannabinoid Screen Not Detected (NotDetected); Tricyclic Screen Not Detected (NotDetected)
[2021-10-14 16:54] LABS: Hemoglobin 11.5 g/dL (12.0-16.0); Mean Corpuscular HGB CONC 32.5 g/dL (32.0-36.0); Mean Corpuscular Hemoglobin 37.3 pg (27.0-31.0); Mean Platelet Volume 7.4 fL (7.4-10.4); Platelet Count 150 thou/uL (130-400); RBC Distribution Width 15.3 % (11.5-14.5); Red Blood Cell (RBC) Count 3.08 mill/uL (4.20-5.40)
[2021-10-14] MEDS ORDERED: Lorazepam 2 MG/ML VIAL SLOW IVP SCH (17:00)
[2021-10-14 17:03] LABS: INR-International Normal Ratio 1.1; PTT 32.5 sec (22.9-36.1)
[2021-10-14 17:14] LABS: Acetaminophen Less than 10.0 mcg/mL (10.0-30.0); Alcohol Less than 10 mg/dL (Less than 10); Salicylate Less than 8.0 mg/dL (15.0-30.0)
[2021-10-14 17:16] LABS: ALT (SGPT) 23 U/L (8-55); AST (SGOT) 88 U/L (5-34); Albumin 3.4 g/dL (3.4-4.8); Alkaline Phosphatase 149 U/L (40-110); Anion Gap 19 mmol/L (10-20); BUN (Urea Nitrogen) 9 mg/dL (9.8-20.1); Bilirubin, Total 2.8 mg/dL (0.2-1.2); Calc. Creatinine Clearance 0 mL/min (70-130); Calcium 8.8 mg/dL (7.8-10.44); Carbon Dioxide 28 mmol/L (23-31); Chloride 91 mmol/L (98-107); Estimated GFR 54; Globulin 3.8 g/dL (2.4-3.5); Glucose 100 mg/dL (83-110); Lipase 19 U/L (8-78); Protein, Total 7.2 g/dL (5.8-8.1); Sodium 135 mmol/L (136-145)
[2021-10-14 17:17] LABS: Potassium 2.9 mmol/L (3.5-5.1)
[2021-10-14 17:25] LABS: Anisocytosis SLIGHT = 6-15 cells (100X) (0-5/hpf); Band 6 % (5-11); Eosinophils 6 % (0-10); Lymphocytes 6 % (21-51); MDiff Complete? YES; Macrocytosis SLIGHT = 6-15 cells (100X) (0-5/hpf); Monocytes 6 % (0-10); Neutrophil 76 % (42-75); Platelet Morphology Comment Appears Adequate
[2021-10-14] MEDS ORDERED: Lorazepam (BATCHED) 2 MG/ML SYR SLOW IVP SCH (17:45)
[2021-10-14] MEDS ORDERED: Potassium Chloride 20 MEQ TAB ONE (18:02)
[2021-10-14] MEDS ORDERED: Acetaminophen 325 MG TAB PO PRN (19:04)
[2021-10-14] MEDS ORDERED: Lorazepam 1 MG TAB PO PRN (19:18)
[2021-10-14] MEDS ORDERED: Lorazepam 2 MG/ML VIAL IM PRN (19:18)
[2021-10-14] MEDS ORDERED: Electrolyte Replacement Protocol 1 EACH FS SCH (19:30)
[2021-10-14] MEDS ORDERED: Lorazepam 1 MG TAB PO SCH (19:30)
[2021-10-14 20:50] LABS: Magnesium 1.6 mg/dL (1.6-2.6); Phosphorus 2.1 mg/dL (2.3-4.7)
[2021-10-14] MEDS: Gabapentin 300 MG CAP PO SCH (20:59)
[2021-10-14] MEDS: Mirtazapine 15 MG Soltab PO SCH (20:59)
[2021-10-14] MEDS ORDERED: Thiamine HCl 200 MG/2 ML VIAL SLOW IVP SCH (21:00)
[2021-10-14] MEDS ORDERED: Potassium Chloride 20 MEQ TAB PO SCH (21:00)
[2021-10-14] MEDS: Pregabalin 50 MG CAP PO SCH (21:00)
[2021-10-14 21:19] VITALS: BMI 30.7
[2021-10-14 22:46] LABS: Anion Gap 18 mmol/L (10-20); Calcium 8.9 mg/dL (7.8-10.44); Carbon Dioxide 26 mmol/L (23-31); Chloride 95 mmol/L (98-107); Sodium 135 mmol/L (136-145)
[2021-10-14 22:54] LABS: BUN (Urea Nitrogen) 9 mg/dL (9.8-20.1); Calc. Creatinine Clearance 58 mL/min (70-130); Estimated GFR 57; Glucose 72 mg/dL (83-110)
[2021-10-14] MEDS ORDERED: PHOS-NAK 1 PKT PACK PO SCH (23:00)
[2021-10-15] MEDS ORDERED: Lorazepam 1 MG TAB PO SCH (03:00)
[2021-10-15 04:53] LABS: Anion Gap 16 mmol/L (10-20); BUN (Urea Nitrogen) 8 mg/dL (9.8-20.1); Band 3 % (5-11); Calc. Creatinine Clearance 62 mL/min (70-130); Calcium 8.6 mg/dL (7.8-10.44); Carbon Dioxide 25 mmol/L (23-31); Chloride 98 mmol/L (98-107); Estimated GFR 62; Glucose 87 mg/dL (83-110); Hemoglobin 12.6 g/dL (12.0-16.0); Lymphocytes 19 % (21-51); MDiff Complete? YES; Magnesium 1.5 mg/dL (1.6-2.6); Mean Corpuscular HGB CONC 34.1 g/dL (32.0-36.0); Mean Corpuscular Hemoglobin 39.6 pg (27.0-31.0); Mean Platelet Volume 9.6 fL (7.4-10.4); Monocytes 8 % (0-10); Neutrophil 70 % (42-75); Platelet Count 75 thou/uL (130-400); Platelet Morphology Comment Appears Decreased; Potassium 3.6 mmol/L (3.5-5.1); RBC Distribution Width 15.5 % (11.5-14.5); RBC Morphology Normal; Red Blood Cell (RBC) Count 3.18 mill/uL (4.20-5.40); Sodium 135 mmol/L (136-145); White Blood Cell (WBC) Count 5.9 thou/uL (4.8-10.8)
[2021-10-15 04:57] LABS: Critical Call Chemistry 2NO.LN; Phosphorus 1.3 mg/dL (2.3-4.7)
[2021-10-15] MEDS ORDERED: Magnesium 2 GM/50 ML(in water) 2 GM in Premix Bag 1 BAG IVPB SCH (05:30)
[2021-10-15] MEDS ORDERED: PHOS-NAK 1 PKT PACK PO SCH (05:30)
[2021-10-15] MEDS: Pregabalin 50 MG CAP PO SCH ×3 (10:34→21:57)
[2021-10-15] MEDS: Multivit, Therapeutic 1 TAB PO SCH (10:34)
[2021-10-15] MEDS: Enoxaparin Sodium 40 MG/0.4 ML SYRINGE SC SCH (10:34)
[2021-10-15] MEDS: Folic Acid 1 MG TAB PO SCH (10:34)
[2021-10-15] MEDS: Atorvastatin Calcium 40 MG TAB PO SCH (10:35)
[2021-10-15] MEDS: Multivitamins, Adult 10 ML, Thiamine HCl 100 MG, Folic Acid 1 MG in Dextrose 5 %-0.45 %... IV SCH (11:16)
[2021-10-15] MEDS ORDERED: chlordiazePOXIDE HCl 25 MG CAP PO SCH (12:00)
[2021-10-15] MEDS: Cefepime 1 GM in Sodium Chloride 0.9% 100 ML IVPB SCH (17:37)
[2021-10-15] MEDS ORDERED: Cefepime 1 GM in Sodium Chloride 0.9% 100 ML IVPB SCH (19:00)
[2021-10-15] MEDS ORDERED: Lorazepam 1 MG TAB PO PRN (19:18)
[2021-10-15] MEDS: Gabapentin 300 MG CAP PO SCH (21:57)
[2021-10-15] MEDS: Mirtazapine 15 MG Soltab PO SCH (21:57)
[2021-10-16] MEDS: Cefepime 1 GM in Sodium Chloride 0.9% 100 ML IVPB SCH ×2 (02:41→10:58)
[2021-10-16 04:37] LABS: Anion Gap 15 mmol/L (10-20); BUN (Urea Nitrogen) 7 mg/dL (9.8-20.1); Calc. Creatinine Clearance 55 mL/min (70-130); Calcium 8.4 mg/dL (7.8-10.44); Carbon Dioxide 28 mmol/L (23-31); Chloride 98 mmol/L (98-107); Estimated GFR 53; Glucose 89 mg/dL (83-110); Magnesium 1.9 mg/dL (1.6-2.6); Phosphorus 1.8 mg/dL (2.3-4.7); Potassium 3.1 mmol/L (3.5-5.1); Sodium 138 mmol/L (136-145)
[2021-10-16] MEDS ORDERED: Potassium Phosphate 9 MMOL in Sodium Chloride 0.9% 100 ML IVPB ONE (06:00)
[2021-10-16] MEDS ORDERED: Potassium Chloride 20 MEQ TAB PO SCH (09:00)
[2021-10-16] MEDS: Folic Acid 1 MG TAB PO SCH (10:14)
[2021-10-16] MEDS: Multivit, Therapeutic 1 TAB PO SCH (10:14)
[2021-10-16] MEDS: Pregabalin 50 MG CAP PO SCH ×3 (10:14→20:50)
[2021-10-16] MEDS: Atorvastatin Calcium 40 MG TAB PO SCH (10:14)
[2021-10-16] MEDS: Enoxaparin Sodium 40 MG/0.4 ML SYRINGE SC SCH (10:15)
[2021-10-16] MEDS: Multivitamins, Adult 10 ML, Thiamine HCl 100 MG, Folic Acid 1 MG in Dextrose 5 %-0.45 %... IV SCH (10:58)
[2021-10-16 14:02] LABS: Hemoglobin 11.3 g/dL (12.0-16.0); Mean Corpuscular HGB CONC 32.6 g/dL (32.0-36.0); Mean Corpuscular Hemoglobin 37.3 pg (27.0-31.0); Mean Platelet Volume 8.3 fL (7.4-10.4); Platelet Count 124 thou/uL (130-400); RBC Distribution Width 15.3 % (11.5-14.5); Red Blood Cell (RBC) Count 3.02 mill/uL (4.20-5.40); White Blood Cell (WBC) Count 6.6 thou/uL (4.8-10.8)
[2021-10-16 14:21] LABS: Band 9 % (5-11); Eosinophils 4 % (0-10); Lymphocytes 9 % (21-51); MDiff Complete? YES; Macrocytosis MODERATE=16-30 cells (100X) (0-5/hpf); Monocytes 10 % (0-10); Neutrophil 65 % (42-75); Platelet Morphology Comment Appears Decreased; Polychromasia SLIGHT = 2-3 cells (100X) (0-2/hpf); Reactive Lymphocytes 1 % (0-10)
[2021-10-16 14:50] LABS: ALT (SGPT) 19 U/L (8-55); AST (SGOT) 73 U/L (5-34); Alkaline Phosphatase 130 U/L (40-110); Bilirubin, Direct 1.1 mg/dL (0.1-0.3); Bilirubin, Total 1.5 mg/dL (0.2-1.2); Protein, Total 6.2 g/dL (5.8-8.1)
[2021-10-16] MEDS ORDERED: Lorazepam 1 MG TAB PO PRN (19:18)
[2021-10-16] MEDS ORDERED: Lorazepam 0.5 MG TAB PO SCH (19:30)
[2021-10-16] MEDS: Gabapentin 300 MG CAP PO SCH (20:50)
[2021-10-16] MEDS: Mirtazapine 15 MG Soltab PO SCH (20:50)
[2021-10-17 04:22] LABS: Anion Gap 12 mmol/L (10-20); BUN (Urea Nitrogen) 5 mg/dL (9.8-20.1); Calc. Creatinine Clearance 74 mL/min (70-130); Calcium 8.3 mg/dL (7.8-10.44); Carbon Dioxide 26 mmol/L (23-31); Chloride 102 mmol/L (98-107); Estimated GFR 75; Glucose 89 mg/dL (83-110); Potassium 3.2 mmol/L (3.5-5.1); Sodium 137 mmol/L (136-145)
[2021-10-17 04:58] LABS: Band 1 % (5-11); Eosinophils 4 % (0-10); Hemoglobin 10.6 g/dL (12.0-16.0); Lymphocytes 22 % (21-51); MDiff Complete? YES; Mean Corpuscular Hemoglobin 37.4 pg (27.0-31.0); Monocytes 7 % (0-10); Neutrophil 66 % (42-75); Platelet Count 111 thou/uL (130-400); Platelet Morphology Comment Appears Adequate; RBC Distribution Width 15.4 % (11.5-14.5); RBC Morphology Normal; Red Blood Cell (RBC) Count 2.84 mill/uL (4.20-5.40); White Blood Cell (WBC) Count 5.1 thou/uL (4.8-10.8)
[2021-10-17] MEDS ORDERED: Potassium Chloride 20 MEQ TAB PO SCH (08:45)
[2021-10-17] MEDS ORDERED: Folic Acid 1 MG TAB PO SCH (09:00)
[2021-10-17] MEDS: Atorvastatin Calcium 40 MG TAB PO SCH (09:08)
[2021-10-17] MEDS: Multivit, Therapeutic 1 TAB PO SCH (09:08)
[2021-10-17] MEDS: Potassium Chloride 20 MEQ TAB PO SCH (09:09)
[2021-10-17] MEDS: Thiamine 100 MG TAB PO SCH (09:09)
[2021-10-17] MEDS: Pregabalin 50 MG CAP PO SCH ×3 (09:09→20:57)
[2021-10-17] MEDS: Folic Acid 1 MG TAB PO SCH (09:09)
[2021-10-17] MEDS: Multivitamins, Adult 10 ML, Thiamine HCl 100 MG, Folic Acid 1 MG in Dextrose 5 %-0.45 %... IV SCH (10:36)
[2021-10-17 16:12] LABS: Potassium 4.2 mmol/L (3.5-5.1)
[2021-10-17] MEDS ORDERED: Lorazepam 0.5 MG TAB PO PRN (19:18)
[2021-10-17] MEDS: Gabapentin 300 MG CAP PO SCH (20:57)
[2021-10-17] MEDS: Mirtazapine 15 MG Soltab PO SCH (20:57)
[2021-10-18 07:25] LABS: Hemoglobin 11.2 g/dL (12.0-16.0); Mean Corpuscular HGB CONC 31.6 g/dL (32.0-36.0); Mean Corpuscular Hemoglobin 36.6 pg (27.0-31.0); Platelet Count 137 thou/uL (130-400); RBC Distribution Width 15.2 % (11.5-14.5); Red Blood Cell (RBC) Count 3.06 mill/uL (4.20-5.40); White Blood Cell (WBC) Count 4.9 thou/uL (4.8-10.8)
[2021-10-18 07:49] LABS: Anion Gap 13 mmol/L (10-20); BUN (Urea Nitrogen) 4 mg/dL (9.8-20.1); Calc. Creatinine Clearance 89 mL/min (70-130); Calcium 8.5 mg/dL (7.8-10.44); Carbon Dioxide 20 mmol/L (23-31); Chloride 108 mmol/L (98-107); Estimated GFR 89; Glucose 84 mg/dL (83-110); Potassium 4.1 mmol/L (3.5-5.1); Sodium 137 mmol/L (136-145)
[2021-10-18 10:50] LABS: Band 9 % (5-11); Eosinophils 3 % (0-10); Lymphocytes 29 % (21-51); MDiff Complete? YES; Macrocytosis MODERATE=16-30 cells (100X) (0-5/hpf); Monocytes 14 % (0-10); Neutrophil 45 % (42-75); Platelet Morphology Comment Appears Adequate; Polychromasia SLIGHT = 2-3 cells (100X) (0-2/hpf)
[2021-10-18] MEDS: Folic Acid 1 MG TAB PO SCH (12:06)
[2021-10-18] MEDS: Pregabalin 50 MG CAP PO SCH ×2 (12:06→16:39)
[2021-10-18] MEDS: Thiamine 100 MG TAB PO SCH (12:06)
[2021-10-18] MEDS: Potassium Chloride 20 MEQ TAB PO SCH (12:06)
[2021-10-18] MEDS: Atorvastatin Calcium 40 MG TAB PO SCH (12:06)
[2021-10-18] MEDS: Multivit, Therapeutic 1 TAB PO SCH (12:07)
[2021-10-18 15:25] VITALS: BP 121/67; TEMP 98.1
[2021-10-19] MEDS ORDERED: Enoxaparin Sodium 40 MG/0.4 ML SYRINGE SC SCH (09:00)
== END 2021-10-18 17:42 | disposition left against medical advice (07) | DRG 641 ==
LOC: ERS 15:30 → 2NO 18:21 → OBSVTOIN 10-16 11:45
PROVIDERS: ADMIT Student in an Organized Health Care Education/Training Program; ATTEND Student in an Organized Health Care Education/Training Program
DX: E51.2 Wernicke's encephalopathy (principal); F10.239 Alcohol dependence with withdrawal, unspecified; N39.0 Urinary tract infection, site not specified; Z16.30 Resistance to unspecified antimicrobial drugs; K70.30 Alcoholic cirrhosis of liver without ascites; J44.9 Chronic obstructive pulmonary disease, unspecified; F32.9 Major depressive disorder, single episode, unspecified; I10 Essential (primary) hypertension; E87.6 Hypokalemia; D64.9 Anemia, unspecified; M79.7 Fibromyalgia; E83.42 Hypomagnesemia; E83.39 Other disorders of phosphorus metabolism; D69.6 Thrombocytopenia, unspecified; E53.8 Deficiency of other specified B group vitamins; Z96.641 Presence of right artificial hip joint; Z79.899 Other long term (current) drug therapy; Z90.710 Acquired absence of both cervix and uterus; Z87.891 Personal history of nicotine dependence
CPT/HCPCS: 36415; 70450; 71045; 80048; 80053; 80076; 80306; 80307; 81003; 81015; 82140; 82607; 82746; 83605; 83690; 83735; 83880; 84100; 84425; 84439; 84443; 85025; 85610; 85730; 87040; 87086; 87205; 93005; 96372; 96375; 96376; G0378; J0692; J0696; J1650; J1956; J3411; J3475; J3490; J7042

== ENCOUNTER 2021-10-30 11:59 | Inpatient (IN) | payer MEDICARE ==
[2021-10-30 12:51] LABS: INR-International Normal Ratio 1.1; PTT 32.4 sec (22.9-36.1); Prothrombin Time 14.8 sec (12.0-14.7)
[2021-10-30 12:58] LABS: #Basophils 0.1 thou/uL (0.0-0.2); #Eosinphils 0.4 thou/uL (0.0-0.7); #Lymphocytes 2.3 thou/uL (1.20-3.40); #Monocytes 0.8 thou/uL (0.11-0.59); #Neutrophils 2.9 thou/uL (1.40-6.50); %Basophils 1.7 % (0.0-1.0); %Eosinophils 6.4 % (0.0-10.0); %Monocytes 11.8 % (0.0-10.0); %Neutrophils 45.1 % (42.0-75.0); Hemoglobin 12.7 g/dL (12.0-16.0); Mean Corpuscular HGB CONC 33.4 g/dL (32.0-36.0); Mean Corpuscular Hemoglobin 36.8 pg (27.0-31.0); Mean Platelet Volume 8.4 fL (7.4-10.4); Platelet Count 343 thou/uL (130-400); RBC Distribution Width 14.9 % (11.5-14.5); Red Blood Cell (RBC) Count 3.45 mill/uL (4.20-5.40); White Blood Cell (WBC) Count 6.4 thou/uL (4.8-10.8)
[2021-10-30 13:02] LABS: ALT (SGPT) 30 U/L (8-55); AST (SGOT) 90 U/L (5-34); Albumin 3.7 g/dL (3.4-4.8); Alkaline Phosphatase 130 U/L (40-110); Anion Gap 19 mmol/L (10-20); BUN (Urea Nitrogen) 10 mg/dL (9.8-20.1); Bilirubin, Total 2.3 mg/dL (0.2-1.2); Calc. Creatinine Clearance 0 mL/min (70-130); Carbon Dioxide 29 mmol/L (23-31); Chloride 92 mmol/L (98-107); Estimated GFR 39; Globulin 4.4 g/dL (2.4-3.5); Glucose 101 mg/dL (83-110); Protein, Total 8.1 g/dL (5.8-8.1); Sodium 138 mmol/L (136-145)
[2021-10-30 13:13] LABS: Potassium 2.4 mmol/L (3.5-5.1)
[2021-10-30] MEDS ORDERED: Iopamidol-370 76% 500 ML 1 ML ONE (13:58)
[2021-10-30 14:07] LABS: Bacteria/HPF 4+ HPF (None Seen); Bilirubin Negative (Negative); Blood, Urine Negative (Negative); Clarity Turbid (Clear); Glucose, Urine (Dipstick) Normal (Negative); Ketone, Urine Negative (Negative); Leukocyte 250 Leu/uL (Negative); Nitrite Negative (Negative); Protein, Urine (Dipstick) 20 mg/dL (Neg-Trace); RBC/HPF 0-3 HPF (0-3); Specific Gravity, Urine 1.015 (1.002-1.036); Urobilinogen 3 mg/dL (Less than 2); WBC/HPF 21-50 HPF (0-3)
[2021-10-30 14:39] LABS: Magnesium 1.3 mg/dL (1.6-2.6)
[2021-10-30] MEDS ORDERED: Piperacillin/Tazobactam 4.5 GM VIAL ONE (14:48)
[2021-10-30] MEDS ORDERED: Magnesium 2 GM/50 ML BAG (IN WATER) ONE (14:48)
[2021-10-30] MEDS ORDERED: Potassium Chloride 20 MEQ/100 ML PREMIX BAG ONE (14:48)
[2021-10-30] MEDS ORDERED: Potassium Chloride 20 MEQ TAB ONE (14:48)
[2021-10-30 16:23] LABS: Lactic Acid 1.5 mmol/L (0.5-2.2)
[2021-10-30] MEDS ORDERED: Lactated Ringer's 1,000 ML IV SCH (17:45)
[2021-10-30] MEDS ORDERED: Cosyntropin 250 MCG VIAL SLOW IVP SCH (18:30)
[2021-10-30] MEDS ORDERED: Midodrine HCl 5 MG TAB PO SCH ×2 (19:30→21:00)
[2021-10-30] MEDS: D5 LR w/20 mEq KCL 1,000 ML IV SCH (21:35)
[2021-10-30] MEDS: Midodrine HCl 5 MG TAB PO SCH (21:36)
[2021-10-30] MEDS: Gabapentin 300 MG CAP PO SCH (22:18)
[2021-10-30] MEDS: Pregabalin 50 MG CAP PO SCH (22:19)
[2021-10-30] MEDS: Magnesium Oxide 400 MG TAB PO SCH (22:19)
[2021-10-30] MEDS: Mirtazapine 15 MG Soltab PO SCH (22:19)
[2021-10-30 23:09] LABS: Anion Gap 16 mmol/L (10-20); BUN (Urea Nitrogen) 10 mg/dL (9.8-20.1); Calc. Creatinine Clearance 46 mL/min (70-130); Calcium 7.7 mg/dL (7.8-10.44); Carbon Dioxide 28 mmol/L (23-31); Chloride 97 mmol/L (98-107); Estimated GFR 43; Glucose 112 mg/dL (83-110); Magnesium 1.6 mg/dL (1.6-2.6); Sodium 138 mmol/L (136-145)
[2021-10-31] MEDS: D5 LR w/20 mEq KCL 1,000 ML IV SCH ×2 (04:22→08:23)
[2021-10-31 05:40] LABS: #Basophils 0.1 thou/uL (0.0-0.2); #Eosinphils 0.1 thou/uL (0.0-0.7); #Lymphocytes 0.6 thou/uL (1.20-3.40); #Monocytes 0.8 thou/uL (0.11-0.59); #Neutrophils 12.4 thou/uL (1.40-6.50); %Basophils 0.5 % (0.0-1.0); %Eosinophils 0.6 % (0.0-10.0); %Lymphocytes 4.4 % (21.0-51.0); %Monocytes 5.9 % (0.0-10.0); %Neutrophils 88.7 % (42.0-75.0); Hemoglobin 11.5 g/dL (12.0-16.0); Mean Corpuscular HGB CONC 33.4 g/dL (32.0-36.0); Mean Corpuscular Hemoglobin 36.7 pg (27.0-31.0); Mean Platelet Volume 8.5 fL (7.4-10.4); Platelet Count 231 thou/uL (130-400); RBC Distribution Width 14.6 % (11.5-14.5); Red Blood Cell (RBC) Count 3.13 mill/uL (4.20-5.40)
[2021-10-31 05:41] LABS: ALT (SGPT) 24 U/L (8-55); AST (SGOT) 72 U/L (5-34); Albumin 2.8 g/dL (3.4-4.8); Alkaline Phosphatase 94 U/L (40-110); Anion Gap 14 mmol/L (10-20); BUN (Urea Nitrogen) 9 mg/dL (9.8-20.1); Bilirubin, Total 1.9 mg/dL (0.2-1.2); Calc. Creatinine Clearance 46 mL/min (70-130); Calcium 7.6 mg/dL (7.8-10.44); Carbon Dioxide 29 mmol/L (23-31); Chloride 98 mmol/L (98-107); Estimated GFR 45; Globulin 3.3 g/dL (2.4-3.5); Glucose 153 mg/dL (83-110); Magnesium 1.6 mg/dL (1.6-2.6); Protein, Total 6.1 g/dL (5.8-8.1); Sodium 138 mmol/L (136-145)
[2021-10-31 05:44] LABS: Potassium 2.9 mmol/L (3.5-5.1)
[2021-10-31] MEDS ORDERED: Potassium Chloride 20 MEQ TAB PO SCH (06:15)
[2021-10-31] MEDS: Potassium Chloride 20 MEQ in Premix Bag 1 BAG IVPB SCH ×2 (07:12→13:40)
[2021-10-31] MEDS: Atorvastatin Calcium 40 MG TAB PO SCH (08:24)
[2021-10-31] MEDS: Folic Acid 1 MG TAB PO SCH (08:24)
[2021-10-31] MEDS: Enoxaparin Sodium 40 MG/0.4 ML SYRINGE SC SCH (08:24)
[2021-10-31] MEDS: Magnesium Oxide 400 MG TAB PO SCH ×2 (08:24→21:17)
[2021-10-31] MEDS: Pregabalin 50 MG CAP PO SCH ×3 (08:25→21:17)
[2021-10-31] MEDS: Midodrine HCl 5 MG TAB PO SCH ×3 (08:25→21:17)
[2021-10-31] MEDS: Multivit, Therapeutic 1 TAB PO SCH (08:25)
[2021-10-31] MEDS ORDERED: Magnesium 2 GM/50 ML(in water) 2 GM in Premix Bag 1 BAG IVPB SCH (12:45)
[2021-10-31] MEDS ORDERED: Potassium Chloride 20 MEQ in Premix Bag 1 BAG IVPB SCH (13:45)
[2021-10-31 13:53] LABS: Anion Gap 13 mmol/L (10-20); BUN (Urea Nitrogen) 10 mg/dL (9.8-20.1); Calc. Creatinine Clearance 47 mL/min (70-130); Calcium 7.9 mg/dL (7.8-10.44); Carbon Dioxide 28 mmol/L (23-31); Chloride 102 mmol/L (98-107); Estimated GFR 47; Glucose 133 mg/dL (83-110); Sodium 139 mmol/L (136-145)
[2021-10-31] MEDS: Potassium Chloride 10 MEQ in Dextrose 5%-Lactated Ringers 1,000 ML IV SCH (17:10)
[2021-10-31] MEDS: Gabapentin 300 MG CAP PO SCH (21:17)
[2021-10-31] MEDS: Mirtazapine 15 MG Soltab PO SCH (21:18)
[2021-11-01] MEDS: Levothyroxine Sodium 25 MCG TAB PO SCH (06:05)
[2021-11-01 07:09] LABS: Hemoglobin 11.3 g/dL (12.0-16.0); Mean Corpuscular HGB CONC 32.7 g/dL (32.0-36.0); Mean Corpuscular Hemoglobin 36.2 pg (27.0-31.0); Mean Platelet Volume 8.4 fL (7.4-10.4); Platelet Count 237 thou/uL (130-400); RBC Distribution Width 14.8 % (11.5-14.5); Red Blood Cell (RBC) Count 3.12 mill/uL (4.20-5.40); White Blood Cell (WBC) Count 7.5 thou/uL (4.8-10.8)
[2021-11-01 07:20] LABS: ALT (SGPT) 24 U/L (8-55); AST (SGOT) 67 U/L (5-34); Albumin 2.8 g/dL (3.4-4.8); Alkaline Phosphatase 108 U/L (40-110); Anion Gap 13 mmol/L (10-20); BUN (Urea Nitrogen) 9 mg/dL (9.8-20.1); Bilirubin, Total 1.2 mg/dL (0.2-1.2); Calc. Creatinine Clearance 59 mL/min (70-130); Calcium 8.3 mg/dL (7.8-10.44); Carbon Dioxide 28 mmol/L (23-31); Chloride 102 mmol/L (98-107); Estimated GFR 61; Globulin 3.1 g/dL (2.4-3.5); Glucose 100 mg/dL (83-110); Magnesium 2.2 mg/dL (1.6-2.6); Potassium 3.9 mmol/L (3.5-5.1); Protein, Total 5.9 g/dL (5.8-8.1); Sodium 139 mmol/L (136-145)
[2021-11-01] MEDS: Atorvastatin Calcium 40 MG TAB PO SCH (08:06)
[2021-11-01] MEDS: Enoxaparin Sodium 40 MG/0.4 ML SYRINGE SC SCH (08:06)
[2021-11-01] MEDS: Midodrine HCl 5 MG TAB PO SCH ×3 (08:06→20:58)
[2021-11-01] MEDS: Magnesium Oxide 400 MG TAB PO SCH ×2 (08:06→20:57)
[2021-11-01] MEDS: Folic Acid 1 MG TAB PO SCH (08:06)
[2021-11-01] MEDS: Multivit, Therapeutic 1 TAB PO SCH (08:06)
[2021-11-01] MEDS: Pregabalin 50 MG CAP PO SCH ×3 (08:13→20:56)
[2021-11-01] MEDS: Potassium Chloride 10 MEQ in Dextrose 5%-Lactated Ringers 1,000 ML IV SCH (10:37)
[2021-11-01 12:21] LABS: Band 16 % (5-11); Eosinophils 13 % (0-10); Lymphocytes 21 % (21-51); MDiff Complete? YES; Macrocytosis SLIGHT = 6-15 cells (100X) (0-5/hpf); Monocytes 4 % (0-10); Neutrophil 45 % (42-75); Platelet Morphology Comment Appears Adequate; Polychromasia SLIGHT = 2-3 cells (100X) (0-2/hpf)
[2021-11-01] MEDS: Gabapentin 300 MG CAP PO SCH (20:55)
[2021-11-01] MEDS: Mirtazapine 15 MG Soltab PO SCH (20:57)
[2021-11-02] MEDS: Levothyroxine Sodium 25 MCG TAB PO SCH (05:11)
[2021-11-02 06:38] LABS: Anion Gap 11 mmol/L (10-20); BUN (Urea Nitrogen) 8 mg/dL (9.8-20.1); Calc. Creatinine Clearance 71 mL/min (70-130); Calcium 8.8 mg/dL (7.8-10.44); Carbon Dioxide 27 mmol/L (23-31); Chloride 104 mmol/L (98-107); Estimated GFR 76; Glucose 78 mg/dL (83-110); Sodium 138 mmol/L (136-145)
[2021-11-02] MEDS: Folic Acid 1 MG TAB PO SCH (08:21)
[2021-11-02] MEDS: Pregabalin 50 MG CAP PO SCH ×3 (08:21→20:43)
[2021-11-02] MEDS: Magnesium Oxide 400 MG TAB PO SCH ×2 (08:21→20:44)
[2021-11-02] MEDS: Multivit, Therapeutic 1 TAB PO SCH (08:21)
[2021-11-02] MEDS: Atorvastatin Calcium 40 MG TAB PO SCH (08:21)
[2021-11-02] MEDS: Enoxaparin Sodium 40 MG/0.4 ML SYRINGE SC SCH (08:21)
[2021-11-02] MEDS: Midodrine HCl 5 MG TAB PO SCH ×3 (08:24→20:44)
[2021-11-02] MEDS: Gabapentin 300 MG CAP PO SCH (20:41)
[2021-11-02] MEDS: Ascorbic Acid 500 mg Chewable Tablet PO SCH (20:41)
[2021-11-02] MEDS: Mirtazapine 15 MG Soltab PO SCH (20:44)
[2021-11-03] MEDS: Levothyroxine Sodium 25 MCG TAB PO SCH (05:03)
[2021-11-03 07:43] LABS: Anion Gap 11 mmol/L (10-20); BUN (Urea Nitrogen) 9 mg/dL (9.8-20.1); Calc. Creatinine Clearance 69 mL/min (70-130); Calcium 8.8 mg/dL (7.8-10.44); Carbon Dioxide 29 mmol/L (23-31); Chloride 105 mmol/L (98-107); Estimated GFR 74; Glucose 86 mg/dL (83-110); Potassium 4.1 mmol/L (3.5-5.1); Sodium 141 mmol/L (136-145)
[2021-11-03] MEDS: Folic Acid 1 MG TAB PO SCH (09:18)
[2021-11-03] MEDS: Midodrine HCl 5 MG TAB PO SCH ×2 (09:18→20:34)
[2021-11-03] MEDS: Ascorbic Acid 500 mg Chewable Tablet PO SCH (09:18)
[2021-11-03] MEDS: Atorvastatin Calcium 40 MG TAB PO SCH (09:18)
[2021-11-03] MEDS: Pregabalin 50 MG CAP PO SCH ×3 (09:18→20:33)
[2021-11-03] MEDS: Magnesium Oxide 400 MG TAB PO SCH ×2 (09:18→20:36)
[2021-11-03] MEDS: Multivit, Therapeutic 1 TAB PO SCH (09:18)
[2021-11-03] MEDS: Enoxaparin Sodium 40 MG/0.4 ML SYRINGE SC SCH (09:19)
[2021-11-03] MEDS ORDERED: Naltrexone Hcl 50 MG Tablet PO SCH (15:30)
[2021-11-03] MEDS: Naltrexone Hcl 50 MG Tablet PO SCH ×2 (15:45→15:46)
[2021-11-03] MEDS: Gabapentin 300 MG CAP PO SCH (20:32)
[2021-11-03] MEDS: Mirtazapine 15 MG Soltab PO SCH (20:35)
[2021-11-04] MEDS: Simethicone Chewable 80 MG TAB PO PRN ×2 (01:06→08:30)
[2021-11-04] MEDS ORDERED: Lidocaine 5% Patch TD SCH (02:30)
[2021-11-04] MEDS: Levothyroxine Sodium 25 MCG TAB PO SCH (05:21)
[2021-11-04] MEDS: Magnesium Oxide 400 MG TAB PO SCH ×2 (08:22→21:46)
[2021-11-04] MEDS: Midodrine HCl 5 MG TAB PO SCH ×2 (08:22→21:46)
[2021-11-04] MEDS: Atorvastatin Calcium 40 MG TAB PO SCH (08:22)
[2021-11-04] MEDS: Multivit, Therapeutic 1 TAB PO SCH (08:22)
[2021-11-04] MEDS: Folic Acid 1 MG TAB PO SCH (08:22)
[2021-11-04] MEDS: Enoxaparin Sodium 40 MG/0.4 ML SYRINGE SC SCH (08:22)
[2021-11-04] MEDS: Pregabalin 50 MG CAP PO SCH ×3 (08:22→21:48)
[2021-11-04 09:01] LABS: #Eosinphils 0.2 thou/uL (0.0-0.7); #Lymphocytes 1.5 thou/uL (1.20-3.40); #Monocytes 0.6 thou/uL (0.11-0.59); #Neutrophils 3.1 thou/uL (1.40-6.50); %Basophils 0.9 % (0.0-1.0); %Eosinophils 3.3 % (0.0-10.0); %Lymphocytes 28.1 % (21.0-51.0); %Monocytes 10.2 % (0.0-10.0); %Neutrophils 57.5 % (42.0-75.0); Hemoglobin 10.4 g/dL (12.0-16.0); Mean Corpuscular HGB CONC 32.7 g/dL (32.0-36.0); Mean Corpuscular Hemoglobin 35.8 pg (27.0-31.0); Mean Platelet Volume 8.3 fL (7.4-10.4); Platelet Count 194 thou/uL (130-400); RBC Distribution Width 14.6 % (11.5-14.5); White Blood Cell (WBC) Count 5.4 thou/uL (4.8-10.8)
[2021-11-04 09:23] LABS: ALT (SGPT) 24 U/L (8-55); AST (SGOT) 53 U/L (5-34); Alkaline Phosphatase 120 U/L (40-110); Anion Gap 14 mmol/L (10-20); BUN (Urea Nitrogen) 8 mg/dL (9.8-20.1); Bilirubin, Total 1.3 mg/dL (0.2-1.2); Calc. Creatinine Clearance 65 mL/min (70-130); Calcium 8.8 mg/dL (7.8-10.44); Carbon Dioxide 26 mmol/L (23-31); Chloride 105 mmol/L (98-107); Estimated GFR 68; Globulin 3.4 g/dL (2.4-3.5); Glucose 107 mg/dL (83-110); Lipase 34 U/L (8-78); Potassium 4.5 mmol/L (3.5-5.1); Protein, Total 6.4 g/dL (5.8-8.1); Sodium 140 mmol/L (136-145)
[2021-11-04] MEDS ORDERED: Transdermal Patch Removal TOP SCH (14:30)
[2021-11-04] MEDS: Naltrexone Hcl 50 MG Tablet PO SCH (15:33)
[2021-11-04] MEDS ORDERED: Iopamidol-370 76% 500 ML 1 ML ONE (15:49)
[2021-11-04] MEDS: Gabapentin 300 MG CAP PO SCH (21:44)
[2021-11-04] MEDS: Mirtazapine 15 MG Soltab PO SCH (21:47)
[2021-11-05] MEDS: Levothyroxine Sodium 25 MCG TAB PO SCH (06:19)
[2021-11-05] MEDS: Pregabalin 50 MG CAP PO SCH ×3 (09:06→19:45)
[2021-11-05] MEDS: Folic Acid 1 MG TAB PO SCH (09:06)
[2021-11-05] MEDS: Atorvastatin Calcium 40 MG TAB PO SCH (09:06)
[2021-11-05] MEDS: Midodrine HCl 5 MG TAB PO SCH ×2 (09:07→20:45)
[2021-11-05] MEDS: Multivit, Therapeutic 1 TAB PO SCH (09:08)
[2021-11-05] MEDS: Magnesium Oxide 400 MG TAB PO SCH ×2 (09:08→20:41)
[2021-11-05] MEDS: Enoxaparin Sodium 40 MG/0.4 ML SYRINGE SC SCH (09:08)
[2021-11-05] MEDS: Naltrexone Hcl 50 MG Tablet PO SCH (15:19)
[2021-11-05] MEDS: Simethicone Chewable 80 MG TAB PO PRN (17:41)
[2021-11-05] MEDS: Gabapentin 300 MG CAP PO SCH (20:39)
[2021-11-05] MEDS: Mirtazapine 15 MG Soltab PO SCH (20:40)
[2021-11-05] MEDS ORDERED: Ondansetron ODT 4 MG TAB SL PRN (21:28)
[2021-11-05 21:55] LABS: #Basophils 0.1 thou/uL (0.0-0.2); #Eosinphils 0.8 thou/uL (0.0-0.7); #Lymphocytes 1.9 thou/uL (1.20-3.40); #Monocytes 0.6 thou/uL (0.11-0.59); #Neutrophils 2.7 thou/uL (1.40-6.50); %Basophils 1.2 % (0.0-1.0); %Eosinophils 13.1 % (0.0-10.0); %Lymphocytes 30.5 % (21.0-51.0); %Monocytes 10.1 % (0.0-10.0); %Neutrophils 45.1 % (42.0-75.0); Hemoglobin 11.5 g/dL (12.0-16.0); Mean Corpuscular HGB CONC 32.3 g/dL (32.0-36.0); Mean Corpuscular Hemoglobin 35.3 pg (27.0-31.0); Mean Platelet Volume 8.5 fL (7.4-10.4); Platelet Count 213 thou/uL (130-400); RBC Distribution Width 14.9 % (11.5-14.5); Red Blood Cell (RBC) Count 3.24 mill/uL (4.20-5.40); White Blood Cell (WBC) Count 6.1 thou/uL (4.8-10.8)
[2021-11-05] MEDS ORDERED: Lidocaine 2% Viscous Solution 10 ML, Aluminum & Magnesium Hydroxide 30 ML SSW SCH (22:00)
[2021-11-05] MEDS ORDERED: Morphine 2 MG/ML VIAL SLOW IVP SCH (23:15)
[2021-11-06] LABS: Albumin 3.2 g/dL (3.4-4.8)
[2021-11-06 00:01] LABS: Chloride 105 mmol/L (98-107); Potassium 3.8 mmol/L (3.5-5.1); Sodium 140 mmol/L (136-145)
[2021-11-06 00:02] LABS: Calcium 8.8 mg/dL (7.8-10.44); Glucose 113 mg/dL (83-110)
[2021-11-06 00:03] LABS: Globulin 3.6 g/dL (2.4-3.5); Protein, Total 6.8 g/dL (5.8-8.1)
[2021-11-06 00:04] LABS: Anion Gap 16 mmol/L (10-20); Bilirubin, Total 1.4 mg/dL (0.2-1.2); Carbon Dioxide 23 mmol/L (23-31)
[2021-11-06 00:05] LABS: Alkaline Phosphatase 114 U/L (40-110)
[2021-11-06 00:06] LABS: Calc. Creatinine Clearance 63 mL/min (70-130); Estimated GFR 65
[2021-11-06 00:07] LABS: AST (SGOT) 42 U/L (5-34); BUN (Urea Nitrogen) 8 mg/dL (9.8-20.1)
[2021-11-06 00:08] LABS: ALT (SGPT) 21 U/L (8-55); Lipase 30 U/L (8-78)
[2021-11-06] MEDS: Ondansetron PF 4 MG/2 ML Vial IVP PRN (01:27)
[2021-11-06] MEDS ORDERED: Ondansetron ODT 4 MG TAB PO PRN (01:40)
[2021-11-06] MEDS ORDERED: Morphine 4 MG/ML VIAL SLOW IVP SCH (02:30)
[2021-11-06 02:56] LABS: Troponin I 0.017 ng/mL (< 0.028)
[2021-11-06] MEDS ORDERED: Lactated Ringer's 500 ML IV ONE (03:00)
[2021-11-06 03:54] LABS: Troponin I 0.016 ng/mL (< 0.028)
[2021-11-06] MEDS: Levothyroxine Sodium 25 MCG TAB PO SCH (05:16)
[2021-11-06 07:00] LABS: ALT (SGPT) 24 U/L (8-55); AST (SGOT) 48 U/L (5-34); Albumin 3.5 g/dL (3.4-4.8); Alkaline Phosphatase 122 U/L (40-110); Bilirubin, Direct 0.8 mg/dL (0.1-0.3); Bilirubin, Total 1.3 mg/dL (0.2-1.2); Lipase 18 U/L (8-78); Protein, Total 7.5 g/dL (5.8-8.1)
[2021-11-06] MEDS: Atorvastatin Calcium 40 MG TAB PO SCH (08:23)
[2021-11-06] MEDS: Multivit, Therapeutic 1 TAB PO SCH (08:23)
[2021-11-06] MEDS: Dicyclomine 20 MG TAB PO SCH ×4 (08:23→20:56)
[2021-11-06] MEDS: Folic Acid 1 MG TAB PO SCH (08:23)
[2021-11-06] MEDS: Magnesium Oxide 400 MG TAB PO SCH ×2 (08:23→20:56)
[2021-11-06] MEDS: Pregabalin 50 MG CAP PO SCH ×3 (08:24→20:56)
[2021-11-06] MEDS: Enoxaparin Sodium 40 MG/0.4 ML SYRINGE SC SCH (08:24)
[2021-11-06] MEDS ORDERED: Ketorolac Tromethamine 30 MG/ML VIAL IVP SCH ×2 (08:45→10:30)
[2021-11-06] MEDS ORDERED: Iopamidol 370 76% 100 ML VIAL ONE (09:06)
[2021-11-06 09:28] LABS: #Basophils 0.1 thou/uL (0.0-0.2); #Lymphocytes 1.3 thou/uL (1.20-3.40); #Monocytes 1.2 thou/uL (0.11-0.59); #Neutrophils 8.4 thou/uL (1.40-6.50); %Basophils 0.5 % (0.0-1.0); %Eosinophils 0.2 % (0.0-10.0); %Monocytes 10.5 % (0.0-10.0); %Neutrophils 76.8 % (42.0-75.0); Hemoglobin 12.2 g/dL (12.0-16.0); Mean Corpuscular HGB CONC 31.9 g/dL (32.0-36.0); Mean Corpuscular Hemoglobin 35.6 pg (27.0-31.0); Mean Platelet Volume 8.5 fL (7.4-10.4); Platelet Count 205 thou/uL (130-400); RBC Distribution Width 14.8 % (11.5-14.5); Red Blood Cell (RBC) Count 3.44 mill/uL (4.20-5.40); White Blood Cell (WBC) Count 10.9 thou/uL (4.8-10.8)
[2021-11-06] MEDS: Acetaminophen 325 MG TAB PO SCH ×3 (10:30→20:58)
[2021-11-06] MEDS ORDERED: Morphine 2 MG/ML VIAL ONE (15:24)
[2021-11-06] MEDS ORDERED: HYDROcodone/Acetaminophen 5/325 mg Tablet PO PRN (16:49)
[2021-11-06] MEDS ORDERED: Ketorolac Tromethamine 30 MG/ML VIAL IVP PRN (16:51)
[2021-11-06] MEDS: Naltrexone Hcl 50 MG Tablet PO SCH (17:10)
[2021-11-06] MEDS ORDERED: Fentanyl 100 MCG/2 ML VIAL SLOW IVP PRN (17:57)
[2021-11-06 18:44] LABS: INR-International Normal Ratio 1.2; PTT 37.8 sec (22.9-36.1); Prothrombin Time 15.3 sec (12.0-14.7)
[2021-11-06] MEDS: Gabapentin 300 MG CAP PO SCH (20:52)
[2021-11-06] MEDS: Mirtazapine 15 MG Soltab PO SCH (20:53)
[2021-11-06] MEDS: Midodrine HCl 5 MG TAB PO SCH (20:55)
[2021-11-07] MEDS: Acetaminophen 325 MG TAB PO SCH ×4 (03:00→21:13)
[2021-11-07] MEDS: Levothyroxine Sodium 25 MCG TAB PO SCH (05:32)
[2021-11-07] MEDS: Lactated Ringer's 1,000 ML IV SCH ×2 (06:38→13:46)
[2021-11-07 06:41] LABS: ALT (SGPT) 18 U/L (8-55); AST (SGOT) 28 U/L (5-34); Albumin 2.8 g/dL (3.4-4.8); Alkaline Phosphatase 82 U/L (40-110); Anion Gap 13 mmol/L (10-20); BUN (Urea Nitrogen) 10 mg/dL (9.8-20.1); Bilirubin, Total 1.4 mg/dL (0.2-1.2); Calc. Creatinine Clearance 59 mL/min (70-130); Calcium 8.2 mg/dL (7.8-10.44); Carbon Dioxide 23 mmol/L (23-31); Chloride 106 mmol/L (98-107); Estimated GFR 61; Globulin 3.2 g/dL (2.4-3.5); Glucose 81 mg/dL (83-110); Magnesium 1.9 mg/dL (1.6-2.6); Phosphorus 3.7 mg/dL (2.3-4.7); Potassium 3.7 mmol/L (3.5-5.1); Sodium 138 mmol/L (136-145)
[2021-11-07 06:43] LABS: Band 20 % (5-11); Eosinophils 3 % (0-10); Hemoglobin 10.8 g/dL (12.0-16.0); Lymphocytes 19 % (21-51); MDiff Complete? YES; Mean Corpuscular HGB CONC 31.9 g/dL (32.0-36.0); Mean Corpuscular Hemoglobin 35.4 pg (27.0-31.0); Mean Platelet Volume 8.5 fL (7.4-10.4); Monocytes 12 % (0-10); Neutrophil 45 % (42-75); Platelet Count 180 thou/uL (130-400); RBC Distribution Width 14.8 % (11.5-14.5); Red Blood Cell (RBC) Count 3.06 mill/uL (4.20-5.40); White Blood Cell (WBC) Count 10.5 thou/uL (4.8-10.8)
[2021-11-07] MEDS: Enoxaparin Sodium 40 MG/0.4 ML SYRINGE SC SCH (08:08)
[2021-11-07] MEDS: Pregabalin 50 MG CAP PO SCH ×3 (09:31→21:11)
[2021-11-07] MEDS ORDERED: Bupivacaine/Epinephrine 0.25% 30 ML VIAL ONE (09:46)
[2021-11-07] MEDS ORDERED: Midazolam HCl 2 mg/2 ml Vial ONE (09:51)
[2021-11-07] MEDS ORDERED: fentaNYL Citrate/PF 100 MCG/2 ML SYRINGE ONE (09:52)
[2021-11-07] MEDS ORDERED: PROPOFOL 200 MG/20 ML VIAL ONE (10:04)
[2021-11-07] MEDS ORDERED: Dexamethasone 20 MG/5 ML VIAL ONE (10:04)
[2021-11-07] MEDS ORDERED: Ondansetron PF 4 MG/2 ML Vial ONE (10:04)
[2021-11-07] MEDS ORDERED: Rocuronium Bromide 10 MG/ML (10ML VIAL) ONE (10:04)
[2021-11-07] MEDS ORDERED: Glycopyrrolate 0.2 MG/ML 5 ML SYRINGE ONE (10:04)
[2021-11-07] MEDS ORDERED: cefOXitin 2 GM VIAL ONE (10:05)
[2021-11-07] MEDS ORDERED: Metoprolol Tartrate 5 MG/5 ML VIAL ONE (11:56)
[2021-11-07] MEDS: Midodrine HCl 5 MG TAB PO SCH ×2 (13:40→21:12)
[2021-11-07] MEDS: Atorvastatin Calcium 40 MG TAB PO SCH (13:40)
[2021-11-07] MEDS: Magnesium Oxide 400 MG TAB PO SCH ×2 (13:40→21:10)
[2021-11-07] MEDS ORDERED: traMADol HCl 50 MG TAB PO PRN (13:54)
[2021-11-07] MEDS: traMADol HCl 50 MG TAB PO SCH ×2 (14:40→21:11)
[2021-11-07] MEDS: Folic Acid 1 MG TAB PO SCH (16:41)
[2021-11-07] MEDS: Multivit, Therapeutic 1 TAB PO SCH ×2 (16:41→16:42)
[2021-11-07] MEDS: Ondansetron PF 4 MG/2 ML Vial IVP PRN (21:04)
[2021-11-07] MEDS: Simethicone Chewable 80 MG TAB PO PRN (21:05)
[2021-11-07] MEDS: Gabapentin 300 MG CAP PO SCH (21:09)
[2021-11-07] MEDS: Mirtazapine 15 MG Soltab PO SCH (21:10)
[2021-11-08] MEDS: traMADol HCl 50 MG TAB PO SCH ×4 (02:10→20:26)
[2021-11-08] MEDS: Acetaminophen 325 MG TAB PO SCH ×4 (02:10→20:25)
[2021-11-08] MEDS: Levothyroxine Sodium 25 MCG TAB PO SCH (06:00)
[2021-11-08 07:47] LABS: Hemoglobin 10.9 g/dL (12.0-16.0); Mean Corpuscular HGB CONC 33.2 g/dL (32.0-36.0); Mean Corpuscular Hemoglobin 36.2 pg (27.0-31.0); Mean Platelet Volume 8.3 fL (7.4-10.4); Platelet Count 181 thou/uL (130-400); RBC Distribution Width 14.5 % (11.5-14.5); Red Blood Cell (RBC) Count 3.02 mill/uL (4.20-5.40); White Blood Cell (WBC) Count 11.9 thou/uL (4.8-10.8)
[2021-11-08 08:06] LABS: ALT (SGPT) 22 U/L (8-55); AST (SGOT) 49 U/L (5-34); Albumin 2.6 g/dL (3.4-4.8); Alkaline Phosphatase 97 U/L (40-110); Anion Gap 10 mmol/L (10-20); BUN (Urea Nitrogen) 9 mg/dL (9.8-20.1); Bilirubin, Direct 0.8 mg/dL (0.1-0.3); Bilirubin, Total 1.2 mg/dL (0.2-1.2); Calc. Creatinine Clearance 67 mL/min (70-130); Calcium 8.1 mg/dL (7.8-10.44); Carbon Dioxide 26 mmol/L (23-31); Chloride 105 mmol/L (98-107); Estimated GFR 71; Glucose 120 mg/dL (83-110); Protein, Total 5.8 g/dL (5.8-8.1); Sodium 137 mmol/L (136-145)
[2021-11-08] MEDS: Multivit, Therapeutic 1 TAB PO SCH (08:25)
[2021-11-08] MEDS: Midodrine HCl 5 MG TAB PO SCH ×2 (08:25→20:23)
[2021-11-08] MEDS: Folic Acid 1 MG TAB PO SCH (08:25)
[2021-11-08] MEDS: Atorvastatin Calcium 40 MG TAB PO SCH (08:26)
[2021-11-08] MEDS: Magnesium Oxide 400 MG TAB PO SCH ×2 (08:26→20:26)
[2021-11-08] MEDS: Enoxaparin Sodium 40 MG/0.4 ML SYRINGE SC SCH (08:27)
[2021-11-08] MEDS: Pregabalin 50 MG CAP PO SCH ×3 (08:27→20:24)
[2021-11-08] MEDS: Naltrexone Hcl 50 MG Tablet PO SCH (08:29)
[2021-11-08 12:48] LABS: Band 17 % (5-11); Lymphocytes 19 % (21-51); MDiff Complete? YES; Monocytes 10 % (0-10); Neutrophil 54 % (42-75); Platelet Morphology Comment Appears Adequate; RBC Morphology Normal
[2021-11-08] MEDS: Mirtazapine 15 MG Soltab PO SCH (20:24)
[2021-11-08] MEDS: Simethicone Chewable 80 MG TAB PO PRN (20:24)
[2021-11-08] MEDS: Gabapentin 300 MG CAP PO SCH (20:25)
[2021-11-09] MEDS: traMADol HCl 50 MG TAB PO SCH ×4 (02:46→20:36)
[2021-11-09] MEDS: Acetaminophen 325 MG TAB PO SCH ×4 (02:47→20:36)
[2021-11-09] MEDS: Levothyroxine Sodium 25 MCG TAB PO SCH (06:18)
[2021-11-09] MEDS: Naltrexone Hcl 50 MG Tablet PO SCH (08:32)
[2021-11-09] MEDS: Pregabalin 50 MG CAP PO SCH ×3 (08:34→20:35)
[2021-11-09] MEDS: Atorvastatin Calcium 40 MG TAB PO SCH (08:35)
[2021-11-09] MEDS: Magnesium Oxide 400 MG TAB PO SCH ×2 (08:35→20:35)
[2021-11-09] MEDS: Multivit, Therapeutic 1 TAB PO SCH (08:35)
[2021-11-09] MEDS: Midodrine HCl 5 MG TAB PO SCH ×2 (08:35→20:37)
[2021-11-09] MEDS: Folic Acid 1 MG TAB PO SCH (08:36)
[2021-11-09] MEDS: Enoxaparin Sodium 40 MG/0.4 ML SYRINGE SC SCH (08:36)
[2021-11-09] MEDS ORDERED: Tamsulosin HCl 0.4 MG CAP PO SCH (10:30)
[2021-11-09 10:43] LABS: Bilirubin Negative (Negative); Blood, Urine 2+ (Negative); Clarity Turbid (Clear); Glucose, Urine (Dipstick) Normal (Negative); Ketone, Urine Negative (Negative); Leukocyte 500 Leu/uL (Negative); Nitrite Negative (Negative); Protein, Urine (Dipstick) 10 mg/dL (Neg-Trace); Specific Gravity, Urine 1.015 (1.002-1.036); Squamous Epithelial None Seen HPF (0-3); Urobilinogen Normal mg/dL (Less than 2); WBC/HPF Greater than 50 HPF (0-3); pH, Urine 6.5 (5.0-9.0)
[2021-11-09 10:57] LABS: Bacteria/HPF 4+ HPF (None Seen); Yeast-Budding None Seen HPF (None Seen)
[2021-11-09 10:58] LABS: Urine Culture Reflex Yes Yes
[2021-11-09] MEDS ORDERED: Chloraseptic Spray 180 ml Bottle PO PRN (12:38)
[2021-11-09 14:20] VITALS: BMI 29.8
[2021-11-09] MEDS: Mirtazapine 15 MG Soltab PO SCH (20:34)
[2021-11-09] MEDS: Gabapentin 300 MG CAP PO SCH (20:34)
[2021-11-09] MEDS: Sulfameth/Trimethoprim DS 800-160mg TAB PO SCH (20:35)
[2021-11-10] MEDS: Acetaminophen 325 MG TAB PO SCH ×2 (02:58→08:27)
[2021-11-10] MEDS: traMADol HCl 50 MG TAB PO SCH ×2 (02:58→08:27)
[2021-11-10] MEDS: Levothyroxine Sodium 25 MCG TAB PO SCH (05:40)
[2021-11-10] MEDS: Enoxaparin Sodium 40 MG/0.4 ML SYRINGE SC SCH (08:26)
[2021-11-10] MEDS: Magnesium Oxide 400 MG TAB PO SCH (08:26)
[2021-11-10] MEDS: Atorvastatin Calcium 40 MG TAB PO SCH (08:26)
[2021-11-10] MEDS: Sulfameth/Trimethoprim DS 800-160mg TAB PO SCH (08:26)
[2021-11-10] MEDS: Midodrine HCl 5 MG TAB PO SCH (08:27)
[2021-11-10] MEDS: Folic Acid 1 MG TAB PO SCH (08:27)
[2021-11-10] MEDS: Pregabalin 50 MG CAP PO SCH (08:28)
[2021-11-10] MEDS: Multivit, Therapeutic 1 TAB PO SCH (08:28)
[2021-11-10] MEDS: Naltrexone Hcl 50 MG Tablet PO SCH (08:28)
[2021-11-10 08:52] VITALS: BP 120/76; TEMP 98.5
[2021-11-10] MEDS ORDERED: Tamsulosin HCl 0.4 MG CAP PO SCH (09:00)
[2021-11-10] MEDS ORDERED: AMOXicillin 250 MG CAP PO SCH (15:00)
== END 2021-11-10 13:00 | DRG 987 ==
LOC: ERS 11:59 → ERHOLD 16:33 → 2SW 10-31 03:38 → OBSVTOIN 11-01 14:29 → T4-B 11-01 18:54
PROVIDERS: ADMIT Student in an Organized Health Care Education/Training Program; ATTEND Family Medicine
PROC: 0FT44ZZ Resection of Gallbladder, Percutaneous Endoscopic Approach (ICD-10-PCS; principal; 2021-11-07)
DX: I95.9 Hypotension, unspecified (principal); K65.8 Other peritonitis; N17.9 Acute kidney failure, unspecified; K80.00 Calculus of gallbladder with acute cholecystitis without obstruction; E87.2 Acidosis; E46 Unspecified protein-calorie malnutrition; N39.0 Urinary tract infection, site not specified; Z20.822 Contact with and (suspected) exposure to COVID-19; Z66 Do not resuscitate; K70.30 Alcoholic cirrhosis of liver without ascites; J44.9 Chronic obstructive pulmonary disease, unspecified; N18.2 Chronic kidney disease, stage 2 (mild); E87.6 Hypokalemia; E83.42 Hypomagnesemia; M79.7 Fibromyalgia; F32.A Depression, unspecified; K27.9 Peptic ulcer, site unspecified, unspecified as acute or chronic, without hemorrhage or perforation; I12.9 Hypertensive chronic kidney disease with stage 1 through stage 4 chronic kidney disease, or unspecified chronic kidney disease; G62.9 Polyneuropathy, unspecified; E03.9 Hypothyroidism, unspecified; F10.20 Alcohol dependence, uncomplicated; K59.00 Constipation, unspecified; Z96.643 Presence of artificial hip joint, bilateral; R33.9 Retention of urine, unspecified; B95.2 Enterococcus as the cause of diseases classified elsewhere; Z79.899 Other long term (current) drug therapy; Z90.710 Acquired absence of both cervix and uterus; Z87.891 Personal history of nicotine dependence; Z68.29 Body mass index [BMI] 29.0-29.9, adult
CPT/HCPCS: 36415; 36416; 71045; 74160; 74177; 76705; 78227; 80048; 80053; 80076; 80307; 81001; 81003; 81015; 82570; 83605; 83690; 83735; 83880; 84100; 84300; 84439; 84443; 84484; 85025; 85610; 85730; 86850; 86900; 86901; 87040; 87077; 87086; 87186; 88304; 93005; 93010; 94760; 96361; 96365; 96372; 96375; 96376; A9537; C1713; G0378; J0694; J1100; J1650; J1885; J2250; J2270; J2405; J2543; J2704; J2710; J3010; J3475; J3480; J7120; Q0162; Q9967; U0003; U0005

== ENCOUNTER 2022-07-11 11:50 | Inpatient (IN) | payer MEDICARE ==
[2022-07-11] MEDS ORDERED: cefTRIAXone (ROCEPHIN) 1 GM VIAL ONE (12:35)
[2022-07-11] MEDS ORDERED: methylPREDNISolone Sod Succ/PF 125 MG/2 ML VIAL ONE (12:35)
[2022-07-11] MEDS ORDERED: Iopamidol-370 76% 500 ML MDV (1 ML CHARGE) ONE (12:38)
[2022-07-11 12:50] LABS: Hemoglobin 10.7 g/dL (12.0-16.0); Mean Corpuscular HGB CONC 33.9 g/dL (32.0-36.0); Mean Corpuscular Hemoglobin 40.4 pg (27.0-31.0); Mean Platelet Volume 7.5 fL (7.4-10.4); Platelet Count 124 10x3/uL (130-400); RBC Distribution Width 15.5 % (11.5-14.5); Red Blood Cell (RBC) Count 2.65 mill/uL (4.20-5.40); White Blood Cell (WBC) Count 12.4 10x3/uL (4.8-10.8)
[2022-07-11 12:56] LABS: INR-International Normal Ratio 1.2; Prothrombin Time 15.5 sec (12.0-14.7)
[2022-07-11 12:57] LABS: PTT 33.1 sec (22.9-36.1)
[2022-07-11] MEDS ORDERED: Thiamine HCl 100 MG, Folic Acid 1 MG in Dextrose 5 %-0.45 % NaCl 1,000 ML IVPB SCH (13:00)
[2022-07-11 13:04] LABS: Anisocytosis SLIGHT = 6-15 cells (100X) (0-5/hpf); Band 11 % (5-11); Lymphocytes 7 % (21-51); MDiff Complete? YES; Macrocytosis SLIGHT = 6-15 cells (100X) (0-5/hpf); Monocytes 5 % (0-10); Neutrophil 77 % (42-75); Platelet Morphology Comment Appears Decreased; Polychromasia SLIGHT = 2-3 cells (100X) (0-2/hpf)
[2022-07-11 13:09] LABS: ALT (SGPT) 87 U/L (8-55); AST (SGOT) 104 U/L (5-34); Albumin 3.5 g/dL (3.4-4.8); Alkaline Phosphatase 118 U/L (40-110); Anion Gap 19 mmol/L (10-20); BUN (Urea Nitrogen) 11 mg/dL (9.8-20.1); Bilirubin, Total 2.9 mg/dL (0.2-1.2); CK (CPK) 643 U/L (29-168); Calc. Creatinine Clearance 0 mL/min (70-130); Calcium 7.8 mg/dL (7.8-10.44); Carbon Dioxide 32 mmol/L (23-31); Chloride 78 mmol/L (98-107); Estimated GFR 50; Globulin 3.5 g/dL (2.4-3.5); Glucose 90 mg/dL (83-110); Lipase 49 U/L (8-78); Sodium 127 mmol/L (136-145)
[2022-07-11 13:17] LABS: Potassium 2.3 mmol/L (3.5-5.1)
[2022-07-11] MEDS ORDERED: Azithromycin 500 MG VIAL ONE (13:21)
[2022-07-11] MEDS ORDERED: Ipratropium/Albuterol 3 ML NEB ONE (13:26)
[2022-07-11 13:32] LABS: Bacteria/HPF 4+ HPF (None Seen); Bilirubin Negative (Negative); Blood, Urine 2+ (Negative); Clarity Turbid (Clear); Glucose, Urine (Dipstick) Normal (Negative); Ketone, Urine 20 mg/dL (Negative); Leukocyte 500 Leu/uL (Negative); Nitrite Negative (Negative); Protein, Urine (Dipstick) 20 mg/dL (Neg-Trace); RBC/HPF 0-3 HPF (0-3); Renal Epithelial 0-3 HPF (None Seen); Specific Gravity, Urine 1.009 (1.002-1.036); Squamous Epithelial 0-3 HPF (0-3); Urobilinogen Normal mg/dL (Less than 2); WBC/HPF 21-50 HPF (0-3); pH, Urine 6.5 (5.0-9.0)
[2022-07-11] MEDS ORDERED: Potassium Chloride 20 MEQ TAB ONE (13:33)
[2022-07-11] MEDS ORDERED: Potassium Chloride 20 MEQ/100 ML PREMIX BAG ONE (13:36)
[2022-07-11 13:42] LABS: CKMB 1.1 ng/mL (0-6.6)
[2022-07-11] MEDS ORDERED: Magnesium 2 GM/50 ML BAG (IN WATER) ONE (13:53)
[2022-07-11 14:02] LABS: Magnesium 1.9 mg/dL (1.6-2.6)
[2022-07-11 14:30] LABS: SARS-CoV-2 NAA Rapid Test Not Detected (NotDetected)
[2022-07-11] MEDS ORDERED: Ondansetron ODT 4 MG TAB PO PRN (15:22)
[2022-07-11 15:45] LABS: Troponin I 0.032 ng/mL (< 0.028)
[2022-07-11 15:58] LABS: Lactic Acid 2.7 mmol/L (0.5-2.2)
[2022-07-11 16:51] VITALS: BMI 30.5
[2022-07-11] MEDS: Lactated Ringer's 1,000 ML IV SCH (18:03)
[2022-07-11] MEDS ORDERED: Ipratropium/Albuterol 3 ML NEB NEB SCH (18:30)
[2022-07-11 18:49] LABS: Troponin I 0.039 ng/mL (< 0.028)
[2022-07-11] MEDS: Ipratropium Bromide 2.5 ml Neb NEB SCH ×2 (19:33→23:02)
[2022-07-11 20:47] LABS: Anion Gap 23 mmol/L (10-20); BUN (Urea Nitrogen) 11 mg/dL (9.8-20.1); Calc. Creatinine Clearance 52 mL/min (70-130); Calcium 7.8 mg/dL (7.8-10.44); Carbon Dioxide 29 mmol/L (23-31); Chloride 81 mmol/L (98-107); Estimated GFR 51; Glucose 182 mg/dL (83-110); Sodium 130 mmol/L (136-145)
[2022-07-11] MEDS ORDERED: Potassium Chloride 20 MEQ TAB PO SCH (21:30)
[2022-07-11] MEDS: Pregabalin 50 MG CAP PO SCH (21:51)
[2022-07-11] MEDS: Montelukast Sodium 10 mg Tablet PO SCH (21:51)
[2022-07-11] MEDS: Atorvastatin Calcium 40 MG TAB PO SCH (21:51)
[2022-07-11] MEDS: Mirtazapine 15 MG Soltab PO SCH (21:51)
[2022-07-12] MEDS: Lactated Ringer's 1,000 ML IV SCH ×3 (02:21→23:42)
[2022-07-12] MEDS: Ipratropium Bromide 2.5 ml Neb NEB SCH ×6 (02:25→23:41)
[2022-07-12] MEDS ORDERED: Lactated Ringer's 1,000 ML IV SCH (03:15)
[2022-07-12] MEDS ORDERED: Midodrine HCl 5 MG TAB PO SCH (04:30)
[2022-07-12 07:22] LABS: #Lymphocytes 0.4 thou/uL (1.20-3.40); #Monocytes 0.3 thou/uL (0.11-0.59); #Neutrophils 7.5 thou/uL (1.40-6.50); %Eosinophils 0.2 % (0.0-10.0); %Lymphocytes 5.2 % (21.0-51.0); %Monocytes 3.9 % (0.0-10.0); %Neutrophils 90.8 % (42.0-75.0); Hemoglobin 9.6 g/dL (12.0-16.0); Mean Corpuscular HGB CONC 35.2 g/dL (32.0-36.0); Mean Corpuscular Hemoglobin 41.8 pg (27.0-31.0); Mean Platelet Volume 7.8 fL (7.4-10.4); Platelet Count 123 10x3/uL (130-400); RBC Distribution Width 15.5 % (11.5-14.5); Red Blood Cell (RBC) Count 2.29 mill/uL (4.20-5.40); White Blood Cell (WBC) Count 8.3 10x3/uL (4.8-10.8)
[2022-07-12 07:27] LABS: ALT (SGPT) 71 U/L (8-55); AST (SGOT) 76 U/L (5-34); Albumin 3.1 g/dL (3.4-4.8); Alkaline Phosphatase 98 U/L (40-110); Anion Gap 13 mmol/L (10-20); BUN (Urea Nitrogen) 12 mg/dL (9.8-20.1); Bilirubin, Total 1.9 mg/dL (0.2-1.2); Calc. Creatinine Clearance 59 mL/min (70-130); Calcium 7.8 mg/dL (7.8-10.44); Carbon Dioxide 35 mmol/L (23-31); Chloride 85 mmol/L (98-107); Estimated GFR 60; Glucose 158 mg/dL (83-110); Potassium 3.1 mmol/L (3.5-5.1); Protein, Total 6.1 g/dL (5.8-8.1); Sodium 130 mmol/L (136-145)
[2022-07-12] MEDS ORDERED: Levothyroxine Sodium 50 MCG TAB PO SCH (07:30)
[2022-07-12] MEDS ORDERED: Potassium Chloride 20 MEQ TAB PO SCH (09:00)
[2022-07-12] MEDS ORDERED: Spironolactone 100 MG TAB PO SCH (09:00)
[2022-07-12] MEDS ORDERED: Nitrofurantoin Monohyd/M-Cryst 100 MG CAP PO SCH (09:00)
[2022-07-12] MEDS ORDERED: methylPREDNISolone Sod Succ/PF 125 MG/2 ML VIAL IVP SCH (09:00)
[2022-07-12] MEDS ORDERED: VANCOMYCIN 1.25 GM/250 ML BAG IVPB SCH (09:15)
[2022-07-12] MEDS: Pregabalin 50 MG CAP PO SCH ×3 (09:18→20:00)
[2022-07-12] MEDS: Midodrine HCl 5 MG TAB PO SCH ×3 (09:18→20:01)
[2022-07-12] MEDS: Vancomycin 1.5 GRAM/300 ML BAG 1.5 GM in Premix Bag 1 BAG IVPB SCH (09:28)
[2022-07-12] MEDS: cefTRIAXone\\ROCEPHIN 1 GM in Sodium Chloride 0.9% 100 ML IVPB SCH (14:03)
[2022-07-12] MEDS: Montelukast Sodium 10 mg Tablet PO SCH (20:00)
[2022-07-12] MEDS: Atorvastatin Calcium 40 MG TAB PO SCH (20:01)
[2022-07-12] MEDS: Mirtazapine 15 MG Soltab PO SCH (20:01)
[2022-07-13 05:25] LABS: Hemoglobin 9.8 g/dL (12.0-16.0); Mean Corpuscular HGB CONC 32.5 g/dL (32.0-36.0); Mean Corpuscular Hemoglobin 39.8 pg (27.0-31.0); Mean Platelet Volume 7.6 fL (7.4-10.4); Platelet Count 166 10x3/uL (130-400); Red Blood Cell (RBC) Count 2.45 mill/uL (4.20-5.40); White Blood Cell (WBC) Count 9.9 10x3/uL (4.8-10.8)
[2022-07-13 05:37] LABS: ALT (SGPT) 63 U/L (8-55); AST (SGOT) 79 U/L (5-34); Albumin 3.1 g/dL (3.4-4.8); Alkaline Phosphatase 118 U/L (40-110); Anion Gap 13 mmol/L (10-20); BUN (Urea Nitrogen) 16 mg/dL (9.8-20.1); Calc. Creatinine Clearance 75 mL/min (70-130); Calcium 8.4 mg/dL (7.8-10.44); Carbon Dioxide 29 mmol/L (23-31); Chloride 91 mmol/L (98-107); Estimated GFR 79; Globulin 3.2 g/dL (2.4-3.5); Glucose 119 mg/dL (83-110); Potassium 4.2 mmol/L (3.5-5.1); Protein, Total 6.3 g/dL (5.8-8.1); Sodium 129 mmol/L (136-145)
[2022-07-13 05:43] LABS: Anisocytosis SLIGHT = 6-15 cells (100X) (0-5/hpf); Band 4 % (5-11); Lymphocytes 5 % (21-51); MDiff Complete? YES; Macrocytosis MODERATE=16-30 cells (100X) (0-5/hpf); Metamyelocyte 1 % (0-0); Monocytes 8 % (0-10); Neutrophil 82 % (42-75); Platelet Morphology Comment Appears Adequate; Polychromasia SLIGHT = 2-3 cells (100X) (0-2/hpf); Target Cells SLIGHT = 2-5 cells (100X) (0-1/hpf); Tear Drops SLIGHT = 2-5 cells (100X) (0-1/hpf)
[2022-07-13] MEDS ORDERED: Levothyroxine Sodium 50 MCG TAB PO SCH (06:00)
[2022-07-13] MEDS ORDERED: Spironolactone 25 MG TAB PO SCH (08:00)
[2022-07-13] MEDS: Pregabalin 50 MG CAP PO SCH (08:33)
[2022-07-13] MEDS: Lactated Ringer's 1,000 ML IV SCH (08:33)
[2022-07-13] MEDS: Midodrine HCl 5 MG TAB PO SCH (08:33)
[2022-07-13] MEDS ORDERED: methylPREDNISolone Sod Succ/PF 125 MG/2 ML VIAL IVP SCH (09:00)
[2022-07-13] MEDS: Ipratropium Bromide 2.5 ml Neb NEB SCH (09:30)
[2022-07-13] MEDS: Vancomycin 1.5 GRAM/300 ML BAG 1.5 GM in Premix Bag 1 BAG IVPB SCH (09:33)
[2022-07-13 12:15] VITALS: BP 109/65; TEMP 97.9
[2022-07-13] MEDS: cefTRIAXone\\ROCEPHIN 1 GM in Sodium Chloride 0.9% 100 ML IVPB SCH (14:05)
[2022-07-18] MEDS ORDERED: Alendronate Sodium 70 mg Tablet PO SCH (09:00)
== END 2022-07-13 15:00 | disposition home health service (06) | DRG 189 ==
LOC: ERS 11:50 → ERHOLD 13:48 → NEURO 16:16
PROVIDERS: ADMIT Family Medicine; ATTEND Student in an Organized Health Care Education/Training Program
DX: J96.01 Acute respiratory failure with hypoxia (principal); N39.0 Urinary tract infection, site not specified; J44.1 Chronic obstructive pulmonary disease with (acute) exacerbation; E87.1 Hypo-osmolality and hyponatremia; D68.9 Coagulation defect, unspecified; N17.9 Acute kidney failure, unspecified; Z66 Do not resuscitate; Z20.822 Contact with and (suspected) exposure to COVID-19; R91.8 Other nonspecific abnormal finding of lung field; R77.8 Other specified abnormalities of plasma proteins; R94.31 Abnormal electrocardiogram [ECG] [EKG]; E86.1 Hypovolemia; T50.2X5A Adverse effect of carbonic-anhydrase inhibitors, benzothiadiazides and other diuretics, initial encounter; E87.6 Hypokalemia; K70.30 Alcoholic cirrhosis of liver without ascites; B96.20 Unspecified Escherichia coli [E. coli] as the cause of diseases classified elsewhere; R74.01 Elevation of levels of liver transaminase levels; D69.6 Thrombocytopenia, unspecified; E03.9 Hypothyroidism, unspecified; I10 Essential (primary) hypertension; D53.9 Nutritional anemia, unspecified; M81.0 Age-related osteoporosis without current pathological fracture; E66.9 Obesity, unspecified; M79.7 Fibromyalgia; F10.20 Alcohol dependence, uncomplicated; Z96.643 Presence of artificial hip joint, bilateral; E86.0 Dehydration; Z68.30 Body mass index [BMI] 30.0-30.9, adult; Z87.891 Personal history of nicotine dependence; Z79.899 Other long term (current) drug therapy; Z79.890 Hormone replacement therapy; Z90.710 Acquired absence of both cervix and uterus; Z90.49 Acquired absence of other specified parts of digestive tract; Z87.440 Personal history of urinary (tract) infections
CPT/HCPCS: 36415; 51701; 70450; 71045; 74177; 76705; 80053; 81003; 81015; 82550; 82553; 82607; 83605; 83690; 83735; 83880; 83930; 83935; 84145; 84300; 84443; 84484; 85025; 85610; 85652; 85730; 86140; 87040; 87077; 87086; 87149; 87186; 93005; 94640; 96365; 96366; 96367; 96368; 96375; J0456; J0696; J1650; J2930; J3370; J3411; J3475; J3480; J3490; J7042; J7120; J7611; J7620; Q9967

== ENCOUNTER 2022-07-16 13:47 | Inpatient (IN) | payer MEDICARE ==
[~2022-07-16 13:47] MED LIST changes: -ISOVUE-370 76%-LOCM 1 ML ONE; +Iopamidol-370 76% 500 ML MDV (1 ML CHARGE) ONE
[2022-07-16 14:39] LABS: Hemoglobin 12.1 g/dL (12.0-16.0); Mean Corpuscular HGB CONC 31.9 g/dL (32.0-36.0); Mean Corpuscular Hemoglobin 38.7 pg (27.0-31.0); Mean Platelet Volume 7.6 fL (7.4-10.4); Platelet Count 221 10x3/uL (130-400); RBC Distribution Width 16.5 % (11.5-14.5); Red Blood Cell (RBC) Count 3.14 mill/uL (4.20-5.40); White Blood Cell (WBC) Count 7.8 10x3/uL (4.8-10.8)
[2022-07-16 15:01] LABS: ALT (SGPT) 59 U/L (8-55); AST (SGOT) 118 U/L (5-34); Albumin 3.4 g/dL (3.4-4.8); Alkaline Phosphatase 180 U/L (40-110); Anion Gap 16 mmol/L (10-20); BUN (Urea Nitrogen) 18 mg/dL (9.8-20.1); Calc. Creatinine Clearance 0 mL/min (70-130); Calcium 8.5 mg/dL (7.8-10.44); Carbon Dioxide 25 mmol/L (23-31); Chloride 96 mmol/L (98-107); Estimated GFR 55; Globulin 3.5 g/dL (2.4-3.5); Glucose 129 mg/dL (83-110); Potassium 4.3 mmol/L (3.5-5.1); Protein, Total 6.9 g/dL (5.8-8.1); Sodium 133 mmol/L (136-145)
[2022-07-16 15:23] LABS: Anisocytosis SLIGHT = 6-15 cells (100X) (0-5/hpf); Eosinophils 1 % (0-10); Lymphocytes 11 % (21-51); MDiff Complete? YES; Macrocytosis MODERATE=16-30 cells (100X) (0-5/hpf); Monocytes 5 % (0-10); Myelocyte 4 % (0-0); Neutrophil 74 % (42-75); Platelet Morphology Comment Appears Adequate; Polychromasia SLIGHT = 2-3 cells (100X) (0-2/hpf); Reactive Lymphocytes 5 % (0-10); Target Cells SLIGHT = 2-5 cells (100X) (0-1/hpf)
[2022-07-16] MEDS ORDERED: Furosemide 40 MG/4 ML VIAL ONE (15:38)
[2022-07-16 16:04] LABS: Bilirubin Negative (Negative); Blood, Urine Negative (Negative); Clarity Clear (Clear); Glucose, Urine (Dipstick) Normal (Negative); Ketone, Urine Trace mg/dL (Negative); Leukocyte Negative Leu/uL (Negative); Nitrite Negative (Negative); Protein, Urine (Dipstick) 10 mg/dL (Neg-Trace); Specific Gravity, Urine 1.013 (1.002-1.036)
[2022-07-16] MEDS ORDERED: Simethicone Chewable 80 MG TAB PO PRN (18:06)
[2022-07-16] MEDS ORDERED: Phenol 118 ML BOT PO PRN (18:06)
[2022-07-16 18:54] LABS: Troponin I Less than 0.010 ng/mL (< 0.028)
[2022-07-16] MEDS ORDERED: Amoxicillin/Potassium Clav 875 MG TAB PO SCH (21:00)
[2022-07-16] MEDS: Magnesium Oxide 400 MG TAB PO SCH (21:18)
[2022-07-16] MEDS: Gabapentin 300 MG CAP PO SCH (21:18)
[2022-07-16] MEDS: Pregabalin 50 MG CAP PO SCH (21:19)
[2022-07-16] MEDS: Mirtazapine 15 MG Soltab PO SCH (21:19)
[2022-07-16] MEDS: Montelukast Sodium 10 mg Tablet PO SCH (21:19)
[2022-07-16] MEDS: Atorvastatin Calcium 40 MG TAB PO SCH (21:19)
[2022-07-16 21:22] LABS: Troponin I Less than 0.010 ng/mL (< 0.028)
[2022-07-17] MEDS: Ipratropium Bromide 2.5 ml Neb NEB SCH ×3 (01:30→07:39)
[2022-07-17] MEDS: Levothyroxine Sodium 50 MCG TAB PO SCH (06:01)
[2022-07-17 06:03] VITALS: BMI 33.0
[2022-07-17] MEDS: Ipratropium 200 Puff Oral Inhaler INH SCH ×3 (07:30→19:05)
[2022-07-17] MEDS ORDERED: Furosemide 20 MG/2 ML VIAL SLOW IVP SCH ×2 (08:15→14:00)
[2022-07-17 08:22] LABS: Hemoglobin 11.8 g/dL (12.0-16.0); Mean Corpuscular HGB CONC 33.3 g/dL (32.0-36.0); Mean Corpuscular Hemoglobin 40.5 pg (27.0-31.0); Mean Platelet Volume 7.8 fL (7.4-10.4); Platelet Count 187 10x3/uL (130-400); RBC Distribution Width 16.5 % (11.5-14.5); Red Blood Cell (RBC) Count 2.91 mill/uL (4.20-5.40); White Blood Cell (WBC) Count 8.9 10x3/uL (4.8-10.8)
[2022-07-17 08:41] LABS: Anion Gap 15 mmol/L (10-20); BUN (Urea Nitrogen) 18 mg/dL (9.8-20.1); Calc. Creatinine Clearance 66 mL/min (70-130); Calcium 8.3 mg/dL (7.8-10.44); Carbon Dioxide 26 mmol/L (23-31); Chloride 98 mmol/L (98-107); Estimated GFR 62; Glucose 82 mg/dL (83-110); Potassium 3.2 mmol/L (3.5-5.1); Sodium 136 mmol/L (136-145)
[2022-07-17] MEDS ORDERED: Tamsulosin HCl 0.4 MG CAP PO SCH (09:00)
[2022-07-17] MEDS ORDERED: Potassium Chloride 20 MEQ TAB PO SCH (09:00)
[2022-07-17] MEDS: predniSONE 20 MG TAB PO SCH (09:32)
[2022-07-17] MEDS: Spironolactone 25 MG TAB PO SCH (09:32)
[2022-07-17] MEDS: Amoxicillin/Potassium Clav 875 MG TAB PO SCH ×2 (09:33→22:01)
[2022-07-17] MEDS: Magnesium Oxide 400 MG TAB PO SCH ×2 (09:34→22:01)
[2022-07-17] MEDS: Pregabalin 50 MG CAP PO SCH ×3 (09:34→22:01)
[2022-07-17] MEDS: Multivit, Therapeutic 1 TAB PO SCH (09:34)
[2022-07-17] MEDS: Folic Acid 1 MG TAB PO SCH (09:34)
[2022-07-17] MEDS ORDERED: Potassium Bicarbonate/Cit Ac 20 MEQ TAB PO SCH (09:45)
[2022-07-17] MEDS ORDERED: Furosemide 20 MG TAB PO SCH (09:45)
[2022-07-17 10:22] LABS: Band 1 % (5-11); Eosinophils 1 % (0-10); Lymphocytes 20 % (21-51); MDiff Complete? YES; Macrocytosis MODERATE=16-30 cells (100X) (0-5/hpf); Monocytes 15 % (0-10); Myelocyte 2 % (0-0); Neutrophil 61 % (42-75); Platelet Morphology Comment Appears Adequate; Polychromasia SLIGHT = 2-3 cells (100X) (0-2/hpf)
[2022-07-17] MEDS ORDERED: GUAIFENESIN SF SOLN 200 MG/10 ML UDCUP PO PRN (21:29)
[2022-07-17] MEDS: Gabapentin 300 MG CAP PO SCH (22:00)
[2022-07-17] MEDS: Montelukast Sodium 10 mg Tablet PO SCH (22:01)
[2022-07-17] MEDS: Vancomycin HCl 125 MG/5 ML (BATCHED) UDCUP PO SCH (22:01)
[2022-07-17] MEDS: Atorvastatin Calcium 40 MG TAB PO SCH (22:02)
[2022-07-17] MEDS: Mirtazapine 15 MG Soltab PO SCH (22:02)
[2022-07-18] MEDS: Ipratropium 200 Puff Oral Inhaler INH SCH ×5 (02:29→19:17)
[2022-07-18] MEDS: Vancomycin HCl 125 MG/5 ML (BATCHED) UDCUP PO SCH ×4 (03:44→20:25)
[2022-07-18] MEDS: Levothyroxine Sodium 50 MCG TAB PO SCH (05:21)
[2022-07-18 05:55] LABS: Hemoglobin 10.3 g/dL (12.0-16.0); Mean Corpuscular HGB CONC 33.4 g/dL (32.0-36.0); Mean Corpuscular Hemoglobin 39.9 pg (27.0-31.0); Mean Platelet Volume 7.9 fL (7.4-10.4); Platelet Count 157 10x3/uL (130-400); RBC Distribution Width 16.2 % (11.5-14.5); Red Blood Cell (RBC) Count 2.57 mill/uL (4.20-5.40); White Blood Cell (WBC) Count 7.1 10x3/uL (4.8-10.8)
[2022-07-18 06:16] LABS: Anion Gap 13 mmol/L (10-20); BUN (Urea Nitrogen) 17 mg/dL (9.8-20.1); Calc. Creatinine Clearance 70 mL/min (70-130); Calcium 8.2 mg/dL (7.8-10.44); Carbon Dioxide 26 mmol/L (23-31); Chloride 101 mmol/L (98-107); Estimated GFR 67; Glucose 91 mg/dL (83-110); Potassium 4.1 mmol/L (3.5-5.1); Sodium 136 mmol/L (136-145)
[2022-07-18 06:56] LABS: Band 3 % (5-11); Lymphocytes 17 % (21-51); MDiff Complete? YES; Macrocytosis MODERATE=16-30 cells (100X) (0-5/hpf); Metamyelocyte 1 % (0-0); Monocytes 11 % (0-10); Neutrophil 68 % (42-75)
[2022-07-18] MEDS: Spironolactone 25 MG TAB PO SCH (07:52)
[2022-07-18] MEDS: Pregabalin 50 MG CAP PO SCH ×3 (07:53→20:25)
[2022-07-18] MEDS: predniSONE 20 MG TAB PO SCH (07:53)
[2022-07-18] MEDS: Multivit, Therapeutic 1 TAB PO SCH (07:54)
[2022-07-18] MEDS: Magnesium Oxide 400 MG TAB PO SCH ×2 (07:54→20:25)
[2022-07-18] MEDS: Folic Acid 1 MG TAB PO SCH (07:54)
[2022-07-18] MEDS: Furosemide 20 MG TAB PO SCH (07:54)
[2022-07-18] MEDS ORDERED: Potassium Chloride 20 MEQ TAB PO SCH (08:00)
[2022-07-18] MEDS ORDERED: Amoxicillin/Potassium Clav 875 MG TAB PO SCH (09:00)
[2022-07-18] MEDS: Gabapentin 300 MG CAP PO SCH (20:24)
[2022-07-18] MEDS: Atorvastatin Calcium 40 MG TAB PO SCH (20:24)
[2022-07-18] MEDS: Montelukast Sodium 10 mg Tablet PO SCH (20:25)
[2022-07-18] MEDS: Mirtazapine 15 MG Soltab PO SCH (20:25)
[2022-07-19] MEDS: Ipratropium 200 Puff Oral Inhaler INH SCH ×4 (01:59→19:08)
[2022-07-19] MEDS: Vancomycin HCl 125 MG/5 ML (BATCHED) UDCUP PO SCH ×4 (03:19→20:18)
[2022-07-19 04:49] LABS: Hemoglobin 11.3 g/dL (12.0-16.0); Mean Corpuscular HGB CONC 32.7 g/dL (32.0-36.0); Mean Corpuscular Hemoglobin 39.6 pg (27.0-31.0); Platelet Count 160 10x3/uL (130-400); RBC Distribution Width 16.2 % (11.5-14.5); Red Blood Cell (RBC) Count 2.86 mill/uL (4.20-5.40); White Blood Cell (WBC) Count 8.9 10x3/uL (4.8-10.8)
[2022-07-19 05:06] LABS: Anion Gap 16 mmol/L (10-20); BUN (Urea Nitrogen) 15 mg/dL (9.8-20.1); Calc. Creatinine Clearance 70 mL/min (70-130); Calcium 8.4 mg/dL (7.8-10.44); Carbon Dioxide 21 mmol/L (23-31); Chloride 103 mmol/L (98-107); Estimated GFR 67; Glucose 79 mg/dL (83-110); Potassium 4.5 mmol/L (3.5-5.1); Sodium 135 mmol/L (136-145)
[2022-07-19 05:17] LABS: Anisocytosis SLIGHT = 6-15 cells (100X) (0-5/hpf); Large Platelets SLIGHT; Lymphocytes 16 % (21-51); MDiff Complete? YES; Metamyelocyte 2 % (0-0); Monocytes 16 % (0-10); Myelocyte 1 % (0-0); Neutrophil 65 % (42-75); Platelet Morphology Comment Appears Adequate; Polychromasia SLIGHT = 2-3 cells (100X) (0-2/hpf)
[2022-07-19] MEDS: Levothyroxine Sodium 50 MCG TAB PO SCH (06:22)
[2022-07-19] MEDS: Magnesium Oxide 400 MG TAB PO SCH ×2 (08:41→20:18)
[2022-07-19] MEDS: Spironolactone 25 MG TAB PO SCH (08:42)
[2022-07-19] MEDS: Multivit, Therapeutic 1 TAB PO SCH (08:43)
[2022-07-19] MEDS: Pregabalin 50 MG CAP PO SCH ×3 (08:43→20:19)
[2022-07-19] MEDS: Folic Acid 1 MG TAB PO SCH (08:43)
[2022-07-19] MEDS: Furosemide 20 MG TAB PO SCH (08:44)
[2022-07-19] MEDS: Mirtazapine 15 MG Soltab PO SCH (20:18)
[2022-07-19] MEDS: Montelukast Sodium 10 mg Tablet PO SCH (20:18)
[2022-07-19] MEDS: Atorvastatin Calcium 40 MG TAB PO SCH (20:18)
[2022-07-19] MEDS: Gabapentin 300 MG CAP PO SCH (20:18)
[2022-07-20] MEDS: Ipratropium 200 Puff Oral Inhaler INH SCH ×4 (00:02→19:19)
[2022-07-20] MEDS: Vancomycin HCl 125 MG/5 ML (BATCHED) UDCUP PO SCH ×4 (03:50→20:38)
[2022-07-20] MEDS: Levothyroxine Sodium 50 MCG TAB PO SCH (06:15)
[2022-07-20 07:07] LABS: #Eosinphils 0.3 thou/uL (0.0-0.7); #Lymphocytes 1.3 thou/uL (1.20-3.40); #Monocytes 0.8 thou/uL (0.11-0.59); #Neutrophils 4.2 thou/uL (1.40-6.50); %Basophils 0.3 % (0.0-1.0); %Eosinophils 4.7 % (0.0-10.0); %Lymphocytes 19.6 % (21.0-51.0); %Monocytes 11.4 % (0.0-10.0); Hemoglobin 12.3 g/dL (12.0-16.0); Mean Corpuscular HGB CONC 33.5 g/dL (32.0-36.0); Mean Corpuscular Hemoglobin 40.4 pg (27.0-31.0); Mean Platelet Volume 7.9 fL (7.4-10.4); Platelet Count 126 10x3/uL (130-400); RBC Distribution Width 15.8 % (11.5-14.5); Red Blood Cell (RBC) Count 3.04 mill/uL (4.20-5.40); White Blood Cell (WBC) Count 6.6 10x3/uL (4.8-10.8)
[2022-07-20 07:14] LABS: Anion Gap 13 mmol/L (10-20); BUN (Urea Nitrogen) 13 mg/dL (9.8-20.1); Calc. Creatinine Clearance 71 mL/min (70-130); Calcium 8.5 mg/dL (7.8-10.44); Carbon Dioxide 23 mmol/L (23-31); Chloride 104 mmol/L (98-107); Estimated GFR 68; Glucose 62 mg/dL (83-110); Potassium 4.2 mmol/L (3.5-5.1); Sodium 136 mmol/L (136-145)
[2022-07-20] MEDS ORDERED: hydrOXYzine 25 MG TAB PO PRN (08:25)
[2022-07-20] MEDS: Folic Acid 1 MG TAB PO SCH (09:02)
[2022-07-20] MEDS: Magnesium Oxide 400 MG TAB PO SCH ×2 (09:02→20:38)
[2022-07-20] MEDS: Spironolactone 25 MG TAB PO SCH (09:02)
[2022-07-20] MEDS: Multivit, Therapeutic 1 TAB PO SCH (09:02)
[2022-07-20] MEDS: Pregabalin 50 MG CAP PO SCH ×3 (09:02→20:38)
[2022-07-20] MEDS: Furosemide 20 MG TAB PO SCH (09:02)
[2022-07-20] MEDS: Atorvastatin Calcium 40 MG TAB PO SCH (20:38)
[2022-07-20] MEDS: Gabapentin 300 MG CAP PO SCH (20:38)
[2022-07-20] MEDS: Mirtazapine 15 MG Soltab PO SCH (20:38)
[2022-07-20] MEDS: Montelukast Sodium 10 mg Tablet PO SCH (20:38)
[2022-07-20] MEDS ORDERED: Melatonin 3 MG TAB PO SCH (21:00)
[2022-07-20 23:53] VITALS: BP 114/68; TEMP 98.3
== END 2022-07-20 20:38 | DRG 372 ==
LOC: ERS 13:47 → ERHOLD 16:24 → 2NO 20:08 → T4-B 07-19 14:29
PROVIDERS: ADMIT Student in an Organized Health Care Education/Training Program; ATTEND Student in an Organized Health Care Education/Training Program
DX: A04.72 Enterocolitis due to Clostridium difficile, not specified as recurrent (principal); E46 Unspecified protein-calorie malnutrition; E87.1 Hypo-osmolality and hyponatremia; J44.9 Chronic obstructive pulmonary disease, unspecified; F10.20 Alcohol dependence, uncomplicated; K58.0 Irritable bowel syndrome with diarrhea; E03.9 Hypothyroidism, unspecified; M79.7 Fibromyalgia; E66.9 Obesity, unspecified; Z96.643 Presence of artificial hip joint, bilateral; R33.9 Retention of urine, unspecified; K70.30 Alcoholic cirrhosis of liver without ascites; Z79.890 Hormone replacement therapy; Z79.51 Long term (current) use of inhaled steroids; Z79.52 Long term (current) use of systemic steroids; Z79.899 Other long term (current) drug therapy; Z90.710 Acquired absence of both cervix and uterus; Z87.891 Personal history of nicotine dependence; Z68.33 Body mass index [BMI] 33.0-33.9, adult
CPT/HCPCS: 36415; 51702; 71045; 71275; 80048; 80053; 81003; 83880; 84484; 85025; 85379; 87324; 87449; 87493; 93005; 93970; 96374; J1650; J1940; J7512; Q9967

== ENCOUNTER 2022-11-12 17:32 | Emergency (ER) | payer MEDICARE ==
[2022-11-12] MEDS ORDERED: cefTRIAXone (ROCEPHIN) 1 GM VIAL ONE (18:57)
[2022-11-12] MEDS ORDERED: fentaNYL 50 mcg/mL 1 mL Vial ONE (18:57)
[2022-11-12 19:05] LABS: #Basophils 0.1 thou/uL (0.0-0.2); #Monocytes 1.5 thou/uL (0.11-0.59); #Neutrophils 11.8 thou/uL (1.40-6.50); %Basophils 0.5 % (0.0-1.0); %Eosinophils 0.2 % (0.0-10.0); %Lymphocytes 15.3 % (21.0-51.0); %Monocytes 9.4 % (0.0-10.0); %Neutrophils 74.2 % (42.0-75.0); Hematocrit 35.9 % (36.0-47.0); Hemoglobin 12.7 g/dL (12.0-16.0); Mean Corpuscular HGB CONC 35.4 g/dL (32.0-36.0); Mean Corpuscular Hemoglobin 31.8 pg (27.0-31.0); Mean Corpuscular Volume 89.8 fl (78.0-98.0); Mean Platelet Volume 9.2 fL (7.4-10.4); Platelet Count 308 10x3/uL (130-400); White Blood Cell (WBC) Count 15.9 10x3/uL (4.8-10.8)
[2022-11-12 19:30] LABS: ALT (SGPT) 9 U/L (8-55); AST (SGOT) 22 U/L (5-34); Albumin 3.5 g/dL (3.4-4.8); Alkaline Phosphatase 103 U/L (40-110); Anion Gap 17 mmol/L (10-20); BUN (Urea Nitrogen) 11 mg/dL (9.8-20.1); Bilirubin, Total 1.6 mg/dL (0.2-1.2); Calc. Creatinine Clearance 0 mL/min (70-130); Calcium 8.2 mg/dL (7.8-10.44); Carbon Dioxide 25 mmol/L (23-31); Chloride 92 mmol/L (98-107); Estimated GFR 72; Globulin 3.7 g/dL (2.4-3.5); Glucose 90 mg/dL (83-110); Potassium 3.2 mmol/L (3.5-5.1); Protein, Total 7.2 g/dL (5.8-8.1); Sodium 131 mmol/L (136-145)
[2022-11-12 23:19] LABS: Bilirubin Negative (Negative); Blood, Urine Trace (Negative); CAUTI Indications for Culture Dysuria,urgency,freq; Clarity Turbid (Clear); Glucose, Urine (Dipstick) Normal (Negative); Ketone, Urine 10 mg/dL (Negative); Leukocyte 500 Leu/uL (Negative); Nitrite Negative (Negative); Protein, Urine (Dipstick) 20 mg/dL (Neg-Trace); RBC/HPF 0-3 HPF (0-3); Urobilinogen Normal mg/dL (Less than 2); WBC/HPF Greater than 50 HPF (0-3); pH, Urine 7.5 (5.0-9.0)
[2022-11-12 23:24] LABS: Bacteria/HPF 1+ HPF (None Seen)
[2022-11-12 23:27] LABS: Urine Culture Reflex Yes Yes
[2022-11-13] MEDS ORDERED: Potassium Chloride 20 MEQ TAB ONE (01:04)
== END 2022-11-13 00:30 | disposition home or self-care (01) ==
LOC: ERS 17:32
DX: N39.0 Urinary tract infection, site not specified (principal); J44.9 Chronic obstructive pulmonary disease, unspecified; I10 Essential (primary) hypertension; Z87.891 Personal history of nicotine dependence
CPT/HCPCS: 51701; 74177; 80053; 81001; 82962; 83605; 85025; 87040; 87086; 93005; 96361; 96365; 96375; 99284; J3010; 36415; 36416; J0696; Q9967

== ENCOUNTER 2023-03-21 09:33 | Outpatient (CLI) | payer MEDICARE | END 2023-03-21 09:34 | disposition home or self-care (01) | LOC: BICRAD 09:33 | PROVIDERS: ATTEND Family Medicine | DX: J44.1 Chronic obstructive pulmonary disease with (acute) exacerbation (principal) | CPT/HCPCS: 71046 ==

== ENCOUNTER 2023-08-19 11:49 | Inpatient (IN) | payer MEDICARE ==
[2023-08-19 13:15] LABS: Troponin I 0.041 ng/mL (< 0.028)
[2023-08-19 13:16] LABS: #Basophils 0.04 10x3/uL (0.0-0.2); #Eosinphils Less than 0.03 10x3/uL (0.0-0.7); %Basophils 0.3 % (0.0-1.0); %Eosinophils 0.1 % (0.0-10.0); %Lymphocytes 13.3 % (21.0-51.0); %Monocytes 12.8 % (0.0-10.0); %Neutrophils 72.9 % (42.0-75.0); Hematocrit 36.8 % (36.0-47.0); Hemoglobin 12.9 g/dL (12.0-16.0); Mean Corpuscular HGB CONC 35.1 g/dL (32.0-36.0); Mean Corpuscular Hemoglobin 34.3 pg (27.0-31.0); Mean Corpuscular Volume 97.9 fL (78.0-98.0); Mean Platelet Volume 11.7 fL (7.4-10.4); Platelet Count 78 10x3/uL (130-400); RBC Distribution Width 19.3 % (11.5-14.5); Red Blood Cell (RBC) Count 3.76 mill/uL (4.20-5.40)
[2023-08-19 13:38] LABS: ALT (SGPT) 50 U/L (8-55); AST (SGOT) 142 U/L (5-34); Albumin 2.4 g/dL (3.4-4.8); Alkaline Phosphatase 151 U/L (40-110); Anion Gap 20 mmol/L (10-20); BUN (Urea Nitrogen) 30 mg/dL (9.8-20.1); Bilirubin, Total 2.9 mg/dL (0.2-1.2); Calc. Creatinine Clearance 0 mL/min (70-130); Calcium 8.6 mg/dL (7.8-10.44); Carbon Dioxide 25 mmol/L (23-31); Chloride 92 mmol/L (98-107); Estimated GFR 20; Globulin 3.8 g/dL (2.4-3.5); Glucose 82 mg/dL (83-110); Potassium 4.4 mmol/L (3.5-5.1); Protein, Total 6.2 g/dL (5.8-8.1); Sodium 133 mmol/L (136-145)
[2023-08-19 14:40] LABS: Anisocytosis SLIGHT = 6-15 cells (100X) (0-5/hpf); Band 3 % (5-11); Lymphocytes 13 % (21-51); Monocytes 13 % (0-10); Neutrophil 71 % (42-75); Plasma Cells 0 % (0-0); Platelet Adequacy Comment Appears Decreased; Total Cell Count 100
[2023-08-19 16:03] LABS: Bilirubin Negative (Negative); Blood, Urine Negative (Negative); Glucose, Urine (Dipstick) Negative (Negative); Ketone, Urine Negative (Negative); Leukocyte Negative (Negative); Nitrite Negative (Negative); Protein, Urine (Dipstick) Negative (Neg-Trace); Specific Gravity, Urine 1.015 (1.005-1.030)
[2023-08-19 16:04] LABS: Clarity Clear (Clear)
[2023-08-19 16:07] LABS: Bacteria/HPF None Seen HPF (None Seen); CAUTI Indications for Culture Pelvic or flank pain; RBC/HPF 0-3 HPF (0-3); Squamous Epithelial 0-3 HPF (0-3)
[2023-08-19 16:09] LABS: Urine Culture Reflex No No
[2023-08-19] MEDS ORDERED: Albumin 25% 100 ML ONE (17:05)
[2023-08-19] MEDS ORDERED: Acetaminophen 650 MG Suppository PR PRN (17:16)
[2023-08-19] MEDS ORDERED: Ipratropium/Albuterol 3 ML NEB NEB PRN (17:38)
[2023-08-19] MEDS ORDERED: Lorazepam 1 MG TAB PO PRN (17:39)
[2023-08-19] MEDS ORDERED: Lorazepam 2 MG/ML VIAL IM PRN (17:39)
[2023-08-19] MEDS ORDERED: Electrolyte Replacement Protocol 1 EACH FS SCH (17:45)
[2023-08-19 17:57] LABS: Amphetamine Not Detected (NotDetected); Barbiturates Screen Not Detected (NotDetected); Benzodiazepine Screen Detected (NotDetected); Cocaine Metabolite Screen Not Detected (NotDetected); Methadone Not Detected (NotDetected); Methamphetamine Not Detected (NotDetected); Opiate Screen Detected (NotDetected); Oxycodone Screen Not Detected (NotDetected); Phencyclidine (PCP) Not Detected (NotDetected); THC/Cannabinoid Screen Not Detected (NotDetected); Tricyclic Screen Not Detected (NotDetected)
[2023-08-19 18:19] LABS: Magnesium 1.8 mg/dL (1.6-2.6)
[2023-08-19 18:23] LABS: Troponin I 0.035 ng/mL (< 0.028)
[2023-08-19] MEDS ORDERED: Cefepime 1 GM in Sodium Chloride 0.9% 100 ML IVPB SCH (21:00)
[2023-08-19] MEDS ORDERED: Vancomycin 1 GM in Sodium Chloride 0.9% 250 ML 250 ML IVPB SCH (21:00)
[2023-08-19] MEDS ORDERED: Vancomycin Dose by Levels Sliding Scale (Wt 71-99) FS SCH (21:45)
[2023-08-19 21:59] LABS: Troponin I 0.033 ng/mL (< 0.028)
[2023-08-19] MEDS: Folic Acid 1 MG TAB PO SCH (22:36)
[2023-08-19] MEDS: Multivit, Therapeutic 1 TAB PO SCH (22:36)
[2023-08-19] MEDS: Albumin 25% 25 GM (100 mL) BOT IVPB SCH (22:36)
[2023-08-19] MEDS: Acetaminophen 325 MG TAB PO PRN (22:37)
[2023-08-19] MEDS: Magnesium 2 GM/50 ML(in water) 2 GM in Premix 1 BAG IVPB SCH (22:38)
[2023-08-19] MEDS: Midodrine HCl 5 MG TAB PO SCH (22:38)
[2023-08-19] MEDS: Thiamine HCl 200 MG/2 ML VIAL SLOW IVP SCH (22:39)
[2023-08-19] MEDS: Vancomycin (BATCH) 1.5 GM in Premix 1 BAG IVPB SCH (22:47)
[2023-08-19 22:59] VITALS: BMI 33.8
[2023-08-20] MEDS: Ipratropium/Albuterol 3 ML NEB NEB SCH (02:48)
[2023-08-20 03:49] LABS: #Basophils 0.04 10x3/uL (0.0-0.2); %Basophils 0.2 % (0.0-1.0); %Eosinophils 0.8 % (0.0-10.0); %Lymphocytes 18.5 % (21.0-51.0); %Monocytes 11.1 % (0.0-10.0); %Neutrophils 68.9 % (42.0-75.0); Hematocrit 29.6 % (36.0-47.0); Hemoglobin 10.4 g/dL (12.0-16.0); Mean Corpuscular HGB CONC 35.1 g/dL (32.0-36.0); Mean Corpuscular Hemoglobin 34.2 pg (27.0-31.0); Mean Corpuscular Volume 97.4 fL (78.0-98.0); Mean Platelet Volume 11.5 fL (7.4-10.4); Platelet Count 48 10x3/uL (130-400); RBC Distribution Width 18.9 % (11.5-14.5); Red Blood Cell (RBC) Count 3.04 mill/uL (4.20-5.40)
[2023-08-20 04:06] LABS: Anion Gap 14 mmol/L (10-20); BUN (Urea Nitrogen) 31 mg/dL (9.8-20.1); Calc. Creatinine Clearance 28 mL/min (70-130); Calcium 8.5 mg/dL (7.8-10.44); Carbon Dioxide 25 mmol/L (23-31); Chloride 96 mmol/L (98-107); Estimated GFR 22; Glucose 68 mg/dL (83-110); Potassium 4.4 mmol/L (3.5-5.1); Sodium 131 mmol/L (136-145)
[2023-08-20] MEDS: cefTRIAXone\\ROCEPHIN 1 GM in Sodium Chloride 0.9% 100 ML IVPB SCH (05:37)
[2023-08-20] MEDS: Multivit, Therapeutic 1 TAB PO SCH (08:02)
[2023-08-20] MEDS: Folic Acid 1 MG TAB PO SCH (08:03)
[2023-08-20] MEDS: Midodrine HCl 5 MG TAB PO SCH (08:03)
[2023-08-20] MEDS ORDERED: Non-Formulary Item 1 EACH (Tiotropium [Spiriva Handihaler] 18 MCG Box) INH SCH (09:00)
[2023-08-20] MEDS: Pantoprazole 40 MG VIAL IVP SCH ×2 (14:46→16:27)
[2023-08-20] MEDS ORDERED: Albumin 25% 25 GM (100 mL) BOT IVPB SCH (15:00)
[2023-08-20] MEDS: Sodium Chloride 0.9% 1,000 ML IV SCH (16:27)
[2023-08-20] MEDS ORDERED: Lorazepam 1 MG TAB PO PRN (17:39)
[2023-08-20] MEDS ORDERED: Lactated Ringer's 500 ML IV SCH (17:45)
[2023-08-20] MEDS: Albumin 25% 25 GM (100 mL) BOT IVPB SCH (20:20)
[2023-08-20] MEDS: Montelukast Sodium 10 mg Tablet PO SCH (20:20)
[2023-08-20] MEDS: Vancomycin HCl 500 MG in Sodium Chloride 0.9% 100 ML IVPB SCH (23:13)
[2023-08-21 05:29] LABS: ALT (SGPT) 26 U/L (8-55); AST (SGOT) 78 U/L (5-34); Albumin 3.2 g/dL (3.4-4.8); Alkaline Phosphatase 98 U/L (40-110); Anion Gap 14 mmol/L (10-20); BUN (Urea Nitrogen) 32 mg/dL (9.8-20.1); Bilirubin, Total 1.9 mg/dL (0.2-1.2); Calc. Creatinine Clearance 29 mL/min (70-130); Calcium 8.2 mg/dL (7.8-10.44); Carbon Dioxide 22 mmol/L (23-31); Chloride 100 mmol/L (98-107); Estimated GFR 23; Glucose 80 mg/dL (83-110); Potassium 4.4 mmol/L (3.5-5.1); Protein, Total 5.2 g/dL (5.8-8.1); Sodium 132 mmol/L (136-145)
[2023-08-21 06:31] LABS: #Basophils 0.03 10x3/uL (0.0-0.2); %Basophils 0.2 % (0.0-1.0); %Eosinophils 1.3 % (0.0-10.0); %Lymphocytes 8.6 % (21.0-51.0); %Monocytes 9.9 % (0.0-10.0); %Neutrophils 79.7 % (42.0-75.0); Hematocrit 26.4 % (36.0-47.0); Hemoglobin 9.4 g/dL (12.0-16.0); Mean Corpuscular HGB CONC 35.6 g/dL (32.0-36.0); Mean Corpuscular Hemoglobin 34.3 pg (27.0-31.0); Mean Corpuscular Volume 96.4 fL (78.0-98.0); Mean Platelet Volume 12.2 fL (7.4-10.4); Platelet Count 43 10x3/uL (130-400); RBC Distribution Width 18.9 % (11.5-14.5); Red Blood Cell (RBC) Count 2.74 mill/uL (4.20-5.40)
[2023-08-21] MEDS ORDERED: Lorazepam 1 MG TAB PO PRN (17:39)
[2023-08-21] MEDS: Albumin 25% 25 GM (100 mL) BOT IVPB SCH (21:15)
[2023-08-22 04:26] LABS: #Basophils 0.05 10x3/uL (0.0-0.2); %Basophils 0.3 % (0.0-1.0); %Eosinophils 0.6 % (0.0-10.0); %Lymphocytes 10.2 % (21.0-51.0); %Monocytes 9.2 % (0.0-10.0); %Neutrophils 79.3 % (42.0-75.0); Hematocrit 26.1 % (36.0-47.0); Hemoglobin 9.3 g/dL (12.0-16.0); Mean Corpuscular HGB CONC 35.6 g/dL (32.0-36.0); Mean Corpuscular Hemoglobin 34.7 pg (27.0-31.0); Mean Corpuscular Volume 97.4 fL (78.0-98.0); Mean Platelet Volume 11.8 fL (7.4-10.4); Platelet Count 39 10x3/uL (130-400); RBC Distribution Width 19.4 % (11.5-14.5); Red Blood Cell (RBC) Count 2.68 mill/uL (4.20-5.40)
[2023-08-22 04:34] LABS: Anion Gap 12 mmol/L (10-20); BUN (Urea Nitrogen) 30 mg/dL (9.8-20.1); Calc. Creatinine Clearance 37 mL/min (70-130); Calcium 8.5 mg/dL (7.8-10.44); Carbon Dioxide 22 mmol/L (23-31); Chloride 104 mmol/L (98-107); Estimated GFR 28; Glucose 90 mg/dL (83-110); Potassium 3.8 mmol/L (3.5-5.1); Sodium 134 mmol/L (136-145)
[2023-08-22] MEDS: DOBUTamine 500 mg/250 ml 500 MG in Premix 1 BAG IVPB SCH (13:19)
[2023-08-22] MEDS ORDERED: Albuterol 2.5 MG (3 mL) NEB NEB PRN (15:31)
[2023-08-22] MEDS: Thiamine 100 MG TAB PO SCH (18:54)
[2023-08-22] MEDS ORDERED: Non-Formulary Item 1 EACH (Ipratropium 200 PUFF Inh) INH SCH (19:00)
[2023-08-22] MEDS: Pregabalin 50 MG CAP PO SCH (20:46)
[2023-08-23] MEDS: Levothyroxine Sodium 75 MCG TAB PO SCH (05:32)
[2023-08-23 06:09] LABS: #Basophils 0.04 10x3/uL (0.0-0.2); %Basophils 0.3 % (0.0-1.0); %Eosinophils 0.5 % (0.0-10.0); %Lymphocytes 10.3 % (21.0-51.0); %Monocytes 11.1 % (0.0-10.0); %Neutrophils 77.6 % (42.0-75.0); Hematocrit 25.7 % (36.0-47.0); Hemoglobin 9.2 g/dL (12.0-16.0); Mean Corpuscular HGB CONC 35.8 g/dL (32.0-36.0); Mean Corpuscular Hemoglobin 34.6 pg (27.0-31.0); Mean Corpuscular Volume 96.6 fL (78.0-98.0); Mean Platelet Volume 11.6 fL (7.4-10.4); Platelet Count 40 10x3/uL (130-400); RBC Distribution Width 19.4 % (11.5-14.5); Red Blood Cell (RBC) Count 2.66 mill/uL (4.20-5.40)
[2023-08-23 06:33] LABS: ALT (SGPT) 19 U/L (8-55); AST (SGOT) 51 U/L (5-34); Albumin 3.2 g/dL (3.4-4.8); Alkaline Phosphatase 84 U/L (40-110); Anion Gap 12 mmol/L (10-20); BUN (Urea Nitrogen) 31 mg/dL (9.8-20.1); Bilirubin, Total 2.3 mg/dL (0.2-1.2); Calc. Creatinine Clearance 38 mL/min (70-130); Calcium 9.1 mg/dL (7.8-10.44); Carbon Dioxide 23 mmol/L (23-31); Chloride 104 mmol/L (98-107); Estimated GFR 29; Globulin 1.8 g/dL (2.4-3.5); Glucose 105 mg/dL (83-110); Potassium 4.1 mmol/L (3.5-5.1); Sodium 135 mmol/L (136-145)
[2023-08-23] MEDS: Ondansetron PF 4 MG/2 ML Vial IVP PRN (09:36)
[2023-08-23] MEDS: Folic Acid 1 MG TAB PO SCH (09:37)
[2023-08-23] MEDS: Multivit, Therapeutic 1 TAB PO SCH (09:38)
[2023-08-23] MEDS: Spironolactone 25 MG TAB PO SCH (14:06)
[2023-08-23] MEDS: Furosemide 20 MG (2 mL) VIAL SLOW IVP SCH (14:06)
[2023-08-24 04:07] LABS: #Basophils 0.08 10x3/uL (0.0-0.2); %Basophils 0.7 % (0.0-1.0); %Eosinophils 2.3 % (0.0-10.0); %Lymphocytes 12.2 % (21.0-51.0); %Monocytes 12.7 % (0.0-10.0); %Neutrophils 71.8 % (42.0-75.0); Hematocrit 25.9 % (36.0-47.0); Hemoglobin 9.3 g/dL (12.0-16.0); Mean Corpuscular HGB CONC 35.9 g/dL (32.0-36.0); Mean Corpuscular Hemoglobin 33.9 pg (27.0-31.0); Mean Corpuscular Volume 94.5 fL (78.0-98.0); Platelet Count 40 10x3/uL (130-400); RBC Distribution Width 19.7 % (11.5-14.5); Red Blood Cell (RBC) Count 2.74 mill/uL (4.20-5.40)
[2023-08-24 04:33] LABS: ALT (SGPT) 20 U/L (8-55); AST (SGOT) 52 U/L (5-34); Albumin 2.9 g/dL (3.4-4.8); Alkaline Phosphatase 79 U/L (40-110); Anion Gap 14 mmol/L (10-20); BUN (Urea Nitrogen) 33 mg/dL (9.8-20.1); Bilirubin, Total 1.9 mg/dL (0.2-1.2); Calc. Creatinine Clearance 38 mL/min (70-130); Calcium 8.8 mg/dL (7.8-10.44); Carbon Dioxide 22 mmol/L (23-31); Chloride 104 mmol/L (98-107); Estimated GFR 28; Globulin 1.9 g/dL (2.4-3.5); Glucose 98 mg/dL (83-110); Potassium 3.9 mmol/L (3.5-5.1); Protein, Total 4.8 g/dL (5.8-8.1); Sodium 136 mmol/L (136-145)
[2023-08-24] MEDS: Lorazepam 0.5 MG TAB PO PRN (09:17)
[2023-08-24] MEDS: Ondansetron ODT 4 MG TAB PO PRN (09:17)
[2023-08-24] MEDS: Spironolactone 25 MG TAB PO SCH (09:17)
[2023-08-25 05:24] LABS: #Basophils 0.09 10x3/uL (0.0-0.2); #Eosinphils 0.25 10x3/uL (0.0-0.7); #Monocytes 1.66 10x3/uL (0.11-0.59); %Basophils 0.9 % (0.0-1.0); %Eosinophils 2.5 % (0.0-10.0); %Lymphocytes 19.2 % (21.0-51.0); %Monocytes 16.5 % (0.0-10.0); %Neutrophils 60.5 % (42.0-75.0); Hematocrit 25.9 % (36.0-47.0); Hemoglobin 9.3 g/dL (12.0-16.0); Mean Corpuscular HGB CONC 35.9 g/dL (32.0-36.0); Mean Corpuscular Hemoglobin 33.7 pg (27.0-31.0); Mean Corpuscular Volume 93.8 fL (78.0-98.0); Mean Platelet Volume 12.2 fL (7.4-10.4); Platelet Count 45 10x3/uL (130-400); RBC Distribution Width 19.9 % (11.5-14.5); Red Blood Cell (RBC) Count 2.76 mill/uL (4.20-5.40); White Blood Cell (WBC) Count 10.07 10x3/uL (4.8-10.8)
[2023-08-25 05:27] LABS: INR-International Normal Ratio 1.3
[2023-08-25 05:40] LABS: ALT (SGPT) 20 U/L (8-55); AST (SGOT) 53 U/L (5-34); Albumin 2.9 g/dL (3.4-4.8); Alkaline Phosphatase 88 U/L (40-110); Anion Gap 11 mmol/L (10-20); BUN (Urea Nitrogen) 35 mg/dL (9.8-20.1); Bilirubin, Total 1.8 mg/dL (0.2-1.2); Calc. Creatinine Clearance 42 mL/min (70-130); Calcium 9.1 mg/dL (7.8-10.44); Carbon Dioxide 24 mmol/L (23-31); Chloride 105 mmol/L (98-107); Estimated GFR 31; Globulin 2.1 g/dL (2.4-3.5); Glucose 97 mg/dL (83-110); Sodium 136 mmol/L (136-145)
[2023-08-25] MEDS: Polyethylene Glycol 3350 17 GM Packet PO SCH ×2 (12:24→21:29)
[2023-08-25] MEDS: Docusate 100 MG CAP PO SCH ×2 (12:24→21:29)
[2023-08-26 05:24] LABS: INR-International Normal Ratio 1.2; Prothrombin Time 15.5 sec (12.0-14.7)
[2023-08-26 05:25] LABS: %Basophils 1.1 % (0.0-1.0); %Eosinophils 2.3 % (0.0-10.0); %Monocytes 19.5 % (0.0-10.0); %Neutrophils 58.6 % (42.0-75.0); Hematocrit 27.1 % (36.0-47.0); Hemoglobin 9.6 g/dL (12.0-16.0); Mean Corpuscular HGB CONC 35.4 g/dL (32.0-36.0); Mean Corpuscular Hemoglobin 33.8 pg (27.0-31.0); Mean Corpuscular Volume 95.4 fL (78.0-98.0); Mean Platelet Volume 12.6 fL (7.4-10.4); Platelet Count 50 10x3/uL (130-400); RBC Distribution Width 19.8 % (11.5-14.5); Red Blood Cell (RBC) Count 2.84 mill/uL (4.20-5.40)
[2023-08-26 05:48] LABS: Anion Gap 13 mmol/L (10-20); BUN (Urea Nitrogen) 37 mg/dL (9.8-20.1); Calc. Creatinine Clearance 44 mL/min (70-130); Carbon Dioxide 23 mmol/L (23-31); Chloride 105 mmol/L (98-107); Estimated GFR 32; Glucose 103 mg/dL (83-110); Potassium 4.1 mmol/L (3.5-5.1); Sodium 137 mmol/L (136-145)
[2023-08-26] MEDS: Bisacodyl 10 MG SUPP PR SCH (11:46)
[2023-08-26] MEDS: Lactulose 20 GM (30 mL) UDCUP PO SCH (11:46)
[2023-08-26] MEDS: Furosemide 40 MG (4 mL) VIAL SLOW IVP SCH (14:32)
[2023-08-26] MEDS: Octreotide Acetate 1,250 MCG in Sodium Chloride 0.9% 250 ML 250 ML IVPB SCH (16:55)
[2023-08-26] MEDS: Albumin 25% 25 GM (100 mL) BOT IVPB SCH (17:57)
[2023-08-27 04:56] LABS: INR-International Normal Ratio 1.3
[2023-08-27 05:37] LABS: Anion Gap 17 mmol/L (10-20); BUN (Urea Nitrogen) 35 mg/dL (9.8-20.1); Calc. Creatinine Clearance 49 mL/min (70-130); Calcium 8.9 mg/dL (7.8-10.44); Carbon Dioxide 23 mmol/L (23-31); Chloride 104 mmol/L (98-107); Estimated GFR 36; Glucose 113 mg/dL (83-110); Potassium 4.1 mmol/L (3.5-5.1); Sodium 140 mmol/L (136-145)
[2023-08-27] MEDS ORDERED: Fleet Saline Enema 133 ML BOT PR SCH (10:15)
[2023-08-27] MEDS: Pantoprazole DR 40 MG TAB PO SCH (16:30)
[2023-08-27] MEDS: Lactulose 20 GM (30 mL) UDCUP PO SCH (20:41)
[2023-08-28 05:06] LABS: Hematocrit 26.8 % (36.0-47.0); Hemoglobin 9.5 g/dL (12.0-16.0); Mean Corpuscular HGB CONC 35.3 g/dL (32.0-36.0); Mean Corpuscular Hemoglobin 33.7 pg (27.0-31.0); Mean Corpuscular Volume 95.4 fL (78.0-98.0); Mean Platelet Volume 11.8 fL (7.4-10.4); Platelet Count 73 10x3/uL (130-400); RBC Distribution Width 19.4 % (11.5-14.5); Red Blood Cell (RBC) Count 2.82 mill/uL (4.20-5.40)
[2023-08-28 05:44] LABS: Anion Gap 18 mmol/L (10-20); BUN (Urea Nitrogen) 32 mg/dL (9.8-20.1); Calc. Creatinine Clearance 54 mL/min (70-130); Calcium 8.8 mg/dL (7.8-10.44); Carbon Dioxide 24 mmol/L (23-31); Chloride 101 mmol/L (98-107); Estimated GFR 41; Glucose 126 mg/dL (83-110); Potassium 3.6 mmol/L (3.5-5.1); Sodium 139 mmol/L (136-145)
[2023-08-28] MEDS: Promethazine HCl 12.5 MG in Sodium Chloride 0.9% 50 ML IVPB SCH (07:07)
[2023-08-28] MEDS: Furosemide 40 MG TAB PO SCH (17:15)
[2023-08-28] MEDS: cefTRIAXone\\ROCEPHIN 2 GM in Sodium Chloride 0.9% 100 ML IVPB SCH (17:16)
[2023-08-29] MEDS: Ondansetron PF 4 MG/2 ML Vial IVP SCH (03:45)
[2023-08-29] MEDS: Promethazine HCl 12.5 MG in Sodium Chloride 0.9% 50 ML IVPB PRN ×2 (04:22→14:46)
[2023-08-29 05:34] LABS: #Basophils 0.12 10x3/uL (0.0-0.2); %Basophils 1.1 % (0.0-1.0); %Eosinophils 1.9 % (0.0-10.0); %Lymphocytes 16.9 % (21.0-51.0); %Monocytes 14.7 % (0.0-10.0); %Neutrophils 64.4 % (42.0-75.0); Hemoglobin 10.1 g/dL (12.0-16.0); Mean Corpuscular HGB CONC 36.1 g/dL (32.0-36.0); Mean Corpuscular Hemoglobin 34.1 pg (27.0-31.0); Mean Corpuscular Volume 94.6 fL (78.0-98.0); Mean Platelet Volume 11.9 fL (7.4-10.4); Platelet Count 108 10x3/uL (130-400); RBC Distribution Width 19.9 % (11.5-14.5); Red Blood Cell (RBC) Count 2.96 mill/uL (4.20-5.40)
[2023-08-29] MEDS: fentaNYL 50 mcg/mL 1 mL Vial SLOW IVP SCH (06:02)
[2023-08-29 06:10] LABS: Anion Gap 18 mmol/L (10-20); BUN (Urea Nitrogen) 32 mg/dL (9.8-20.1); Calc. Creatinine Clearance 0 mL/min (70-130); Calcium 8.7 mg/dL (7.8-10.44); Carbon Dioxide 24 mmol/L (23-31); Chloride 101 mmol/L (98-107); Estimated GFR 41; Glucose 107 mg/dL (83-110); Potassium 3.4 mmol/L (3.5-5.1); Sodium 140 mmol/L (136-145)
[2023-08-29] MEDS: Spironolactone 25 MG TAB PO SCH (09:00)
[2023-08-29] MEDS: Potassium Chloride 20 MEQ in Premix 1 BAG IVPB SCH (10:16)
[2023-08-29] MEDS ORDERED: Ipratropium/Albuterol 3 ML NEB NEB PRN (12:00)
[2023-08-29] MEDS: cefTRIAXone\\ROCEPHIN 2 GM in Sodium Chloride 0.9% 100 ML IVPB SCH (16:25)
[2023-08-29] MEDS ORDERED: Glycerin Adult Supp. (24 ct jar) PR SCH (17:00)
[2023-08-29] MEDS: Glycerin Adult Supp. (12 ct jar) PR SCH (17:06)
[2023-08-29] MEDS: Albumin 25% 25 GM (100 mL) BOT IVPB SCH (18:35)
[2023-08-30 05:56] LABS: #Basophils 0.04 10x3/uL (0.0-0.2); %Basophils 0.3 % (0.0-1.0); %Eosinophils 1.2 % (0.0-10.0); %Lymphocytes 14.6 % (21.0-51.0); %Monocytes 11.6 % (0.0-10.0); %Neutrophils 70.9 % (42.0-75.0); Hematocrit 26.2 % (36.0-47.0); Hemoglobin 9.2 g/dL (12.0-16.0); Mean Corpuscular HGB CONC 35.1 g/dL (32.0-36.0); Mean Corpuscular Hemoglobin 34.8 pg (27.0-31.0); Mean Corpuscular Volume 99.2 fL (78.0-98.0); Mean Platelet Volume 11.5 fL (7.4-10.4); Platelet Count 112 10x3/uL (130-400); RBC Distribution Width 19.7 % (11.5-14.5); Red Blood Cell (RBC) Count 2.64 mill/uL (4.20-5.40)
[2023-08-30 06:05] LABS: Anion Gap 18 mmol/L (10-20); BUN (Urea Nitrogen) 30 mg/dL (9.8-20.1); Calc. Creatinine Clearance 0 mL/min (70-130); Calcium 8.4 mg/dL (7.8-10.44); Carbon Dioxide 23 mmol/L (23-31); Chloride 104 mmol/L (98-107); Estimated GFR 36; Glucose 97 mg/dL (83-110); Potassium 3.4 mmol/L (3.5-5.1); Sodium 142 mmol/L (136-145)
[2023-08-30] MEDS: Glycerin Adult Supp. (12 ct jar) PR SCH (08:29)
[2023-08-30] MEDS ORDERED: Lidocaine 1% PF 5 ML VIAL ONE (08:57)
[2023-08-30] MEDS ORDERED: Sodium Bicarbonate 2.5 MEQ/5 ML SDV ONE (08:57)
[2023-08-30] MEDS ORDERED: Glycerin Adult Supp. (24 ct jar) PR SCH (10:00)
[2023-08-30] MEDS: Albumin 25% 25 GM (100 mL) BOT IVPB SCH (12:17)
[2023-08-30] MEDS: Octreotide Acetate 100 MCG/ML VIAL SC SCH ×3 (12:25→23:16)
[2023-08-30 13:51] LABS: RBC Count-Automated (BF) 2080 /cu.mm; WBC/Nucleated-Auto (BF) 301 /cu.mm
[2023-08-30 13:53] LABS: BF Color Yellow; Body Fluid Source Ascites Body Fluid; Clarity Hazy (Clear); Tube # EDTA
[2023-08-30 14:23] LABS: BF Segmented Neutrophils 74 %; Cell Count Non Hematic 7 %; Lymphocytes 19 %
[2023-08-30] MEDS: Potassium Chloride 20 MEQ in Premix 1 BAG IVPB SCH (17:18)
[2023-08-30] MEDS: Lactulose 20 GM (30 mL) UDCUP PO SCH (17:28)
[2023-08-30] MEDS: Lactated Ringer's 1,000 ML IV SCH (18:22)
[2023-08-30] MEDS: Cefepime 1 GM in Sodium Chloride 0.9% 100 ML IVPB SCH (18:22)
[2023-08-31 05:18] LABS: #Basophils 0.07 10x3/uL (0.0-0.2); %Basophils 0.6 % (0.0-1.0); %Eosinophils 5.8 % (0.0-10.0); %Lymphocytes 19.1 % (21.0-51.0); %Monocytes 11.4 % (0.0-10.0); %Neutrophils 61.8 % (42.0-75.0); Hematocrit 26.6 % (36.0-47.0); Mean Corpuscular HGB CONC 33.8 g/dL (32.0-36.0); Mean Corpuscular Hemoglobin 34.6 pg (27.0-31.0); Mean Corpuscular Volume 102.3 fL (78.0-98.0); Mean Platelet Volume 11.4 fL (7.4-10.4); Platelet Count 130 10x3/uL (130-400); RBC Distribution Width 20.3 % (11.5-14.5)
[2023-08-31 05:53] LABS: Anion Gap 16 mmol/L (10-20); BUN (Urea Nitrogen) 24 mg/dL (9.8-20.1); Calc. Creatinine Clearance 48 mL/min (70-130); Calcium 8.5 mg/dL (7.8-10.44); Carbon Dioxide 26 mmol/L (23-31); Chloride 106 mmol/L (98-107); Estimated GFR 39; Glucose 97 mg/dL (83-110); Potassium 3.7 mmol/L (3.5-5.1); Sodium 144 mmol/L (136-145)
[2023-08-31] MEDS ORDERED: Furosemide 40 MG TAB PO SCH (09:00)
[2023-08-31] MEDS: Lactulose 20 GM (30 mL) UDCUP PO SCH (15:13)
[2023-08-31] MEDS: Albumin 25% 25 GM (100 mL) BOT IVPB SCH (17:29)
[2023-09-01 04:58] LABS: #Basophils 0.09 10x3/uL (0.0-0.2); %Basophils 0.9 % (0.0-1.0); %Eosinophils 4.8 % (0.0-10.0); %Lymphocytes 19.7 % (21.0-51.0); %Monocytes 9.9 % (0.0-10.0); %Neutrophils 63.5 % (42.0-75.0); Hematocrit 26.6 % (36.0-47.0); Mean Corpuscular HGB CONC 33.8 g/dL (32.0-36.0); Mean Corpuscular Volume 100.4 fL (78.0-98.0); Mean Platelet Volume 11.5 fL (7.4-10.4); Platelet Count 132 10x3/uL (130-400); RBC Distribution Width 21.1 % (11.5-14.5); Red Blood Cell (RBC) Count 2.65 mill/uL (4.20-5.40)
[2023-09-01 05:13] LABS: Anion Gap 14 mmol/L (10-20); BUN (Urea Nitrogen) 19 mg/dL (9.8-20.1); Calc. Creatinine Clearance 62 mL/min (70-130); Calcium 8.4 mg/dL (7.8-10.44); Carbon Dioxide 25 mmol/L (23-31); Chloride 110 mmol/L (98-107); Estimated GFR 50; Glucose 105 mg/dL (83-110); Potassium 3.4 mmol/L (3.5-5.1); Sodium 146 mmol/L (136-145)
[2023-09-01] MEDS: Furosemide 40 MG TAB PO SCH (08:52)
[2023-09-01] MEDS: Spironolactone 25 MG TAB PO SCH (12:22)
[2023-09-01 13:51] LABS: Sodium 146 mmol/L (136-145)
[2023-09-01] MEDS: Potassium Bicarbonate/Cit Ac 20 MEQ TAB PO SCH (17:05)
[2023-09-01] MEDS: Potassium Chloride 20 MEQ TAB PO SCH (18:01)
[2023-09-02 04:03] LABS: #Basophils 0.05 10x3/uL (0.0-0.2); %Basophils 0.4 % (0.0-1.0); %Eosinophils 4.2 % (0.0-10.0); %Lymphocytes 18.6 % (21.0-51.0); %Monocytes 10.2 % (0.0-10.0); %Neutrophils 65.8 % (42.0-75.0); Hematocrit 26.4 % (36.0-47.0); Hemoglobin 8.8 g/dL (12.0-16.0); Mean Corpuscular HGB CONC 33.3 g/dL (32.0-36.0); Mean Corpuscular Hemoglobin 34.4 pg (27.0-31.0); Mean Corpuscular Volume 103.1 fL (78.0-98.0); Mean Platelet Volume 10.8 fL (7.4-10.4); Platelet Count 151 10x3/uL (130-400); RBC Distribution Width 20.4 % (11.5-14.5); Red Blood Cell (RBC) Count 2.56 mill/uL (4.20-5.40)
[2023-09-02 04:17] LABS: Anion Gap 15 mmol/L (10-20); BUN (Urea Nitrogen) 16 mg/dL (9.8-20.1); Calc. Creatinine Clearance 63 mL/min (70-130); Calcium 8.6 mg/dL (7.8-10.44); Carbon Dioxide 27 mmol/L (23-31); Chloride 109 mmol/L (98-107); Estimated GFR 52; Glucose 109 mg/dL (83-110); Potassium 3.5 mmol/L (3.5-5.1); Sodium 147 mmol/L (136-145)
[2023-09-02] MEDS: Spironolactone 25 MG TAB PO SCH (10:31)
[2023-09-02] MEDS: Dextrose 5% in Water 1,000 ML IV SCH (10:43)
[2023-09-02 13:46] VITALS: BMI 36.9
[2023-09-03 05:57] LABS: #Basophils 0.06 10x3/uL (0.0-0.2); %Basophils 0.5 % (0.0-1.0); %Eosinophils 4.7 % (0.0-10.0); %Lymphocytes 21.4 % (21.0-51.0); %Monocytes 10.6 % (0.0-10.0); %Neutrophils 62.1 % (42.0-75.0); Hemoglobin 9.6 g/dL (12.0-16.0); Mean Corpuscular HGB CONC 34.3 g/dL (32.0-36.0); Mean Corpuscular Volume 99.3 fL (78.0-98.0); Mean Platelet Volume 10.9 fL (7.4-10.4); Platelet Count 170 10x3/uL (130-400); RBC Distribution Width 20.7 % (11.5-14.5); Red Blood Cell (RBC) Count 2.82 mill/uL (4.20-5.40)
[2023-09-03 06:09] LABS: Anion Gap 15 mmol/L (10-20); BUN (Urea Nitrogen) 16 mg/dL (9.8-20.1); Calc. Creatinine Clearance 73 mL/min (70-130); Calcium 8.7 mg/dL (7.8-10.44); Carbon Dioxide 25 mmol/L (23-31); Chloride 105 mmol/L (98-107); Estimated GFR 62; Glucose 133 mg/dL (83-110); Sodium 142 mmol/L (136-145)
[2023-09-03 06:12] LABS: ALT (SGPT) 13 U/L (8-55); AST (SGOT) 31 U/L (5-34); Albumin 3.8 g/dL (3.4-4.8); Alkaline Phosphatase 60 U/L (40-110); Bilirubin, Direct 0.6 mg/dL (0.1-0.3); Bilirubin, Total 1.7 mg/dL (0.2-1.2); Protein, Total 5.8 g/dL (5.8-8.1)
[2023-09-03] MEDS: Potassium Chloride 20 MEQ TAB PO SCH (11:46)
[2023-09-03] MEDS ORDERED: Lidocaine 1% PF 5 ML VIAL ONE ×2 (13:40→14:30)
[2023-09-03] MEDS: Albumin 25% 25 GM (100 mL) BOT IVPB SCH (18:00)
[2023-09-04 05:10] LABS: #Basophils 0.07 10x3/uL (0.0-0.2); %Basophils 0.8 % (0.0-1.0); %Eosinophils 7.3 % (0.0-10.0); %Monocytes 12.1 % (0.0-10.0); Hematocrit 26.8 % (36.0-47.0); Mean Corpuscular HGB CONC 33.6 g/dL (32.0-36.0); Mean Corpuscular Hemoglobin 33.6 pg (27.0-31.0); Mean Platelet Volume 10.7 fL (7.4-10.4); Platelet Count 178 10x3/uL (130-400); RBC Distribution Width 20.9 % (11.5-14.5); Red Blood Cell (RBC) Count 2.68 mill/uL (4.20-5.40)
[2023-09-04 05:26] LABS: Anion Gap 15 mmol/L (10-20); BUN (Urea Nitrogen) 17 mg/dL (9.8-20.1); Calc. Creatinine Clearance 60 mL/min (70-130); Calcium 8.8 mg/dL (7.8-10.44); Carbon Dioxide 25 mmol/L (23-31); Chloride 110 mmol/L (98-107); Estimated GFR 49; Glucose 98 mg/dL (83-110); Potassium 3.5 mmol/L (3.5-5.1); Sodium 146 mmol/L (136-145)
[2023-09-05 06:30] LABS: #Basophils 0.06 10x3/uL (0.0-0.2); %Basophils 0.8 % (0.0-1.0); %Eosinophils 7.3 % (0.0-10.0); %Lymphocytes 31.1 % (21.0-51.0); %Monocytes 13.3 % (0.0-10.0); %Neutrophils 47.1 % (42.0-75.0); Hematocrit 26.9 % (36.0-47.0); Hemoglobin 9.2 g/dL (12.0-16.0); Mean Corpuscular HGB CONC 34.2 g/dL (32.0-36.0); Mean Corpuscular Hemoglobin 33.9 pg (27.0-31.0); Mean Corpuscular Volume 99.3 fL (78.0-98.0); Mean Platelet Volume 10.9 fL (7.4-10.4); Platelet Count 187 10x3/uL (130-400); RBC Distribution Width 20.6 % (11.5-14.5); Red Blood Cell (RBC) Count 2.71 mill/uL (4.20-5.40)
[2023-09-05 06:38] LABS: Anion Gap 15 mmol/L (10-20); BUN (Urea Nitrogen) 18 mg/dL (9.8-20.1); Calc. Creatinine Clearance 61 mL/min (70-130); Calcium 8.8 mg/dL (7.8-10.44); Carbon Dioxide 26 mmol/L (23-31); Chloride 105 mmol/L (98-107); Estimated GFR 53; Glucose 92 mg/dL (83-110); Potassium 3.3 mmol/L (3.5-5.1); Sodium 143 mmol/L (136-145)
[2023-09-05 07:29] VITALS: TEMP 98.1
[2023-09-05] MEDS: Potassium Chloride 20 MEQ TAB PO SCH (08:44)
[2023-09-05 12:14] VITALS: BP 113/61
== END 2023-09-05 16:00 | DRG 432 ==
LOC: ERS 11:49 → ERHOLD 16:57 → IMCU/EMU 21:48 → MSONC 08-24 18:38
PROVIDERS: ADMIT Family Medicine; ATTEND Emergency Medicine
PROC: 0W9G3ZZ Drainage of Peritoneal Cavity, Percutaneous Approach (ICD-10-PCS; principal; 2023-08-30)
PROC: 0W9G3ZZ Drainage of Peritoneal Cavity, Percutaneous Approach (ICD-10-PCS; 2023-09-03)
DX: K70.31 Alcoholic cirrhosis of liver with ascites (principal); I21.A1 Myocardial infarction type 2; K65.2 Spontaneous bacterial peritonitis; E87.1 Hypo-osmolality and hyponatremia; N17.9 Acute kidney failure, unspecified; R65.10 Systemic inflammatory response syndrome (SIRS) of non-infectious origin without acute organ dysfunction; E87.20 Acidosis, unspecified; L03.116 Cellulitis of left lower limb; E87.0 Hyperosmolality and hypernatremia; K76.82 Hepatic encephalopathy; J44.9 Chronic obstructive pulmonary disease, unspecified; M79.7 Fibromyalgia; I10 Essential (primary) hypertension; M81.0 Age-related osteoporosis without current pathological fracture; E66.9 Obesity, unspecified; E03.9 Hypothyroidism, unspecified; Z96.643 Presence of artificial hip joint, bilateral; E86.0 Dehydration; R33.9 Retention of urine, unspecified; D69.6 Thrombocytopenia, unspecified; I95.89 Other hypotension; K72.10 Chronic hepatic failure without coma; K59.00 Constipation, unspecified; E87.70 Fluid overload, unspecified; R62.7 Adult failure to thrive; E87.6 Hypokalemia; F10.10 Alcohol abuse, uncomplicated; Z90.710 Acquired absence of both cervix and uterus; Z79.2 Long term (current) use of antibiotics; Z79.891 Long term (current) use of opiate analgesic; Z79.899 Other long term (current) drug therapy
CPT/HCPCS: 36415; 49083; 71045; 74018; 74176; 76700; 76705; 80048; 80053; 80202; 80306; 81001; 82040; 82042; 82105; 82140; 82533; 83735; 83880; 84145; 84484; 85025; 85027; 85060; 85610; 87040; 87070; 87205; 89051; 93005; 94640; 96374; 97139; C9113; J0692; J0696; J1250; J1940; J2354; J2405; J2550; J3010; J3370; J3411; J3475; J3480; J3490; J7050; J7070; J7120; J7620; P9047; Q0162